=== PATIENT | female | born 1975 | race Hispanic/Latino ===

== ENCOUNTER 2019-01-02 20:23 | Inpatient (IN) | payer MEDICAID, OTHER, SELFPAY ==
--- OUTSIDE RECORDS SUMMARY | 2019-01-02 21:43 | XMS REPORT | Continuity of Care Document ---
:1975 Author Organization Interface Problems Problem Status Onset Classification Date Comments Source Date Reported SHORTNESS OF Active 08/12/20 [facility] BREATH/ AMS [facility] Jaw Active 07/03/20 Problem 08/22/2017 Data migrated [facility] pain<sup>4</sup> 12 from [facility] 03/12/15. Trigeminal Active 07/03/20 Problem 08/22/2017 Data migrated [facility] neuralgia<sup>8< 12 from [facility] /sup> [facility] on Center 03/12/15. Chronic Active 06/11/20 Problem 08/22/2017 Data migrated [facility] maxillary 12 from [facility] sinusitis<sup>1< Centricity on Center /sup> 03/12/15. Cough<sup>3</sup Active 06/11/20 Problem 08/22/2017 Data migrated [place] > 12 from [facility] on Center 03/12/15. Patient Active 06/11/20 Problem 08/22/2017 Data migrated [facility] noncompliance - 12 from [facility] Medical general<sup>6</s Centricity on Center up> 03/12/15. Contraception Active 06/03/20 Problem 08/22/2017 Data migrated [facility] care 12 from [facility] management<sup>2 Centricity on Center </sup> 03/12/15. Morbid Active 06/03/20 Problem 08/22/2017 Data migrated [facility] obesity<sup>5</s 12 from [facility] up> Centric[facility] on Center 03/12/15. 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 CHF (<span Resolved Problem 08/22/2017 [facility] ID="[id number] Medical ">Confirmed</spa Center n>) Hypertension Resolved Problem 08/22/2017 [facility] Trigeminal Resolved Problem 08/22/2017 [facility] neuralgia [facility] CEREBRAL EDEMA Active [facility] Medications Medication Details Route Status Patient Ordering Order Source Instructions Provider Date acetaZOLAMIDE 500 mg=2 tab, Active [place] 250 mg oral PO, BID, # 017 Medical tablet 360 tab, 6 Center Refill(s), Pharmacy: [facility]/pharmacy #[id number] docusate-senna 1 tab, PO, Active [place] 50 mg-8.6 mg Daily, 0 017 Medical oral tablet Refill(s) [place] chlorhexidine 0.018 gm=15 Active [place] topical 0.12% mL, Swab 017 Medical liquid Mouth, Q4H, 0 Center Refill(s) acetaZOLAMIDE 500 mg=2 tab, Inactive [place] 250 mg oral PO, BID, 0 017 Medical tablet Refill(s) [place] acetaminophen 650 mg=2 tab, Active [place] 325 mg oral PO, Q6H, PRN 017 Medical tablet Pain 1-3/Temp Center > 100.4 F, 0 Refill(s) influenza virus 0.5 mL, Inactive [place] vaccine, Route: IM, 017 Medical inactivated Drug Form: Center SUSP, Daily, Start date: 08/17/17 13:00:00 CDT, Duration: 1 doses or times, Stop date: 08/17/17 13:00:00 CDTNotes: (Same as: Fluzone Quadrivalent, Fluarix Quadrivalent) For 3 years of age and older (0.5 mL IM) heparin 5000 5,000 unit, 1 No Longer [place] units/mL mL, Route: Active 017 Medical injectable SUB-Q, Drug [place] solution form: INJ, Q8H, Dosing Weight 136.364, kg, Start date: 08/17/17 0:00:00 CDT, Duration: 30 day, Stop date: 09/15/17 16:00:00 CSTNotes: porcine heparin docusate-senna 1 tab, Route: No Longer [place] 50 mg-8.6 mg PO, Drug Active 017 Medical oral tablet Form: TAB, Center Dosing Weight 136.364, kg, Daily, Start date: 08/16/17 19:45:00 CDT, Duration: 30 day, Stop date: 09/15/17 9:00:00 CSTNotes: (Same as Senokot-S) Equiv. to Brit-Colace. acetaminophen 650 mg, 2 No Longer [facility] tab, Route: Active 017 Medical PO, Drug Center form: TAB, Q6H, Dosing Weight 136.364, kg, PRN Pain 1-3/Temp > 100.4 F, Start date: 08/16/17 16:27:00 CDT, Duration: 30 day, Stop date: 09/15/17 16:26:00 CSTNotes: Do not exceed 4 gm/day. (Same as: Tylenol) pneumococcal 0.5 mL, Inactive [facility] 23-valent Route: IM, [facility] vaccine Drug Form: Center INJ, Daily, Start date: 08/16/17 11:42:00 CDT, Stop date: 08/16/17 23:59:00 CDTNotes: (Same as: Pneumovax 23) Refrigerate Diamox 500 mg, 2 No Longer [facility] tab, Route: Active 017 Medical PO, Drug Center form: TAB, BID, Dosing Weight 136.364, kg, Start date: 08/16/17 11:24:00 CDT, Duration: 30 day, Stop date: 09/15/17 9:00:00 CSTNotes: (Same as: Diamox) Diamox 250 mg, Inactive [facility] Route: PO, 017 Medical Drug form: Center TAB, Daily, Dosing Weight 136.364, kg, Start date: 08/16/17 10:11:00 CDT, Duration: 30 day, Stop date: 09/15/17 9:00:00 [employer] Saline Flush 10 ml, Route: No Longer [facility] 0.9% IVP, Drug Active 017 Medical Form: INJ, Center Dosing Weight 136.364, kg, Q12H, Start date: 08/16/17 9:00:00 CDT, Duration: 30 day, Stop date: 09/14/17 21:00:00 CSTNotes: Same as: BD Posiflush Sterile hydrochlorothia 1 tab, PO, No Longer [facility] zide-lisinopril Daily, 0 Active 017 Medical 12.5 mg-10 mg Refill(s) [place] oral tablet chlorhexidine 15 mL, Route: No Longer [place] topical 0.12% Swab Mouth, Active 017 Medical liquid Q4H, Drug Center form: LIQ, Start date: 08/16/17 8:00:00 CDT, Duration: 30 day, Stop date: 09/15/17 4:00:00 CSTNotes: (Same As: Peridex) Insulin regular 10 unit, 0.1 No Longer [place] mL, Route: Active 017 Medical SUB-Q, Drug Center form: SOLN, Sliding Scale, Dosing Weight 136.364, kg, PRN Blood Glucose Results, Start date: 08/16/17 6:38:00 CDT, Duration: 30 day, Stop date: 09/15/17 5:37:00 CSTNotes: (Same as: Humulin R) Roll in palms of hands gently; Do not shake vigorously. "single patient use only" (Restricted to patients requiring a dose > 60 units) WASTE: F/P - Black; E - Fetch It Trash Bin Stable for 28 days at room temperature Expires in days from _Date Saline Flush 10 ml, Route: No Longer [facility] 0.9% IVP, Drug Active 017 Medical Form: INJ, Center Dosing Weight 136.364, kg, PRN, PRN Line Flush, Start date: 08/16/17 6:38:00 CDT, Duration: 30 day, Stop date: 09/15/17 5:37:00 CSTNotes: Same as: BD Posiflush Sterile valproic acid 2,000 mg, Inactive [place] 100 mg/mL Route: IVPB, 017 Medical intravenous ONCE, Dosing Center solution Weight 136.364, kg, Priority: NOW, Start date: 08/16/17 1:58:00 CDT, Stop date: 08/16/17 1:58:00 CDT Allergies, Adverse Reactions, Alerts Substance Category Reaction Severity Reaction Status Date Comments Source type Reported Immunizations Immunization Date Given Site Status Last Comments Source Updated influenza virus 08/17/2017 Left completed [facility] [place] pneumococcal 08/17/2017 Right completed Gita [facility] 23-valent vaccine deltoid [facility] Results Order Name Results Value Reference Date Interpretation Comments Source Range CHEM PANEL Phosphorus 4.9 mg/dL 2.5 - 4.5 08/18 [facility] CHEM PANEL Magnesium Lvl 2.4 mg/dL 1.8 - 2.4 08/18 [facility] CHEM PANEL BUN 17 mg/dL 7 - 22 08/[address] CHEM PANEL Creatinine 0.69 mg/dL 0.50 - 08/18 [facility] Lvl 1.40 [facility] CHEM PANEL Chloride Lvl 103 meq/L 95 - 109 08/18 [facility] CHEM PANEL Potassium Lvl 4.1 meq/L 3.5 - 5.1 08/18 [facility] CHEM PANEL Sodium Lvl 140 meq/L 135 - 145 08/18 [facility]2016 [facility] CHEM PANEL eGFR 109 08/18 Result Comment: The eGFR is calculated using the CKD-EPI formula. In most young, healthy individuals the eGFR will be >90 mL/ min/1.73m2. The eGFR declines with age. An eGFR of 60-89 may be normal in [facility] mL/min/1.7 some populations, particularly the elderly, for whom the CKD-EPI formula has not been extensively validated. Use of the eGFR is not recommended in the following populations: [address] Individuals with unstable creatinine concentrations, including patients and those with serious co-morbid conditions. Patients with extremes in muscle mass or diet. The data above are obtained from the National Kidney Disease Education Program (NKDEP) which additionally recommends that when the eGFR is used in patients with extremes of body mass index for purposes of drug dosing, the eGFR should be multiplied by the estimated BMI. CHEM PANEL CO2 30 meq/L 24 - 32 08/18 [facility] CHEM PANEL Calcium Lvl 9.1 mg/dL 8.5 - 10.5 08/18 [facility] CHEM PANEL Glucose Lvl 100 mg/dL 70 - 99 08/18 2016 [facility] CHEM PANEL AGAP 11.1 meq/L 10.0 - 08/18 [facility] 20.0 [facility] HEMATOLOGY Segs 76.7 % 45.0 - 08/18 [facility] 75.0 [facility] HEMATOLOGY Monocytes 5.4 % 2.0 - 12.0 08/18 [facility] HEMATOLOGY Lymphocytes 16.7 % 20.0 - 08/18 [place] 40.0 [facility] HEMATOLOGY Basophils 0.6 % 0.0 - 1.0 08/18 [facility] HEMATOLOGY Eosinophils 0.6 % 0.0 - 4.0 08/18 [facility] HEMATOLOGY Segs-Bands # 5.9 K/CMM 1.5 - 8.1 08/18 [facility] HEMATOLOGY Monocytes # 0.4 K/CMM 0.0 - 0.8 08/18 [facility] HEMATOLOGY Lymphocytes # 1.3 K/CMM 1.0 - 5.5 08/18 [facility] HEMATOLOGY RBC 5.88 M/CMM 4.20 - 08/18 [facility] 5.40 [facility] HEMATOLOGY WBC 7.8 K/CMM 3.7 - 10.4 08/18 [facility] HEMATOLOGY Hgb 16.4 g/dL 12.0 - 08/18 [facility] 16.0 [facility] HEMATOLOGY MCHC 31.3 g/dL 32.0 - 08/18 [facility] 36.0 [facility] HEMATOLOGY MCH 28.0 pg 27.0 - 08/18 [facility] 31.0 [facility] HEMATOLOGY MCV 89.3 fL 80.0 - 08/18 [facility] 98.0 [facility] HEMATOLOGY Hct 52.6 % 36.0 - 08/18 48.0 [facility] HEMATOLOGY Platelet 210 K/CMM 133 - 450 08/18 [facility] HEMATOLOGY RDW 17.7 % 11.5 - 08/18 14.5 [facility] HEMATOLOGY MPV 8.9 fL 7.4 - 10.4 08/18 [facility] BACTERIAL - MRSA by PCR Negative 08/17 [facility] (08/17/17 1:42 PM) [place] CHEM PANEL eGFR 114 08/17 Result Comment: The eGFR is calculated using the CKD-EPI formula. In most young, healthy individuals the eGFR will be >90 mL/ min/1.73m2. The eGFR declines with age. An eGFR of 60-89 may be normal in [facility] mL/min/1. some populations, particularly the elderly, for whom the CKD-EPI formula has not been extensively validated. Use of the eGFR is not recommended in the following populations: [address] Individuals with unstable creatinine concentrations, including patients and those with serious co-morbid conditions. Patients with extremes in muscle mass or diet. The data above are obtained from the National Kidney Disease Education Program (NKDEP) which additionally recommends that when the eGFR is used in patients with extremes of body mass index for purposes of drug dosing, the eGFR should be multiplied by the estimated BMI. CHEM PANEL Chloride Lvl 102 meq/L 95 - 109 08/[address] [place] [address] CHEM PANEL CO2 32 meq/L 24 - 32 08/[address] CHEM PANEL Calcium Lvl 9.1 mg/dL 8.5 - 10.5 08/[address] CHEM PANEL Glucose Lvl 104 mg/dL 70 - 99 08/[address] CHEM PANEL Sodium Lvl 139 meq/L 135 - 145 08/[address] CHEM PANEL Potassium Lvl 4.1 meq/L 3.5 - 5.1 08/[address] [place] [address] CHEM PANEL BUN 17 mg/dL 7 - 22 08/[address] CHEM PANEL Creatinine 0.60 mg/dL 0.50 - 08/17 [facility] Lvl 1.40 [facility] CHEM PANEL AGAP 9.1 meq/L 10.0 - 08/17 20.0 [facility] CHEM PANEL Magnesium Lvl 2.4 mg/dL 1.8 - 2.4 08/[address] CHEM PANEL Phosphorus 3.3 mg/dL 2.5 - 4.5 08/[address] [place] [address] HEMATOLOGY MCV 90.9 fL 80.0 - 08/17 98.0 [facility] HEMATOLOGY MCH 28.0 pg 27.0 - 08/17 31.0 [facility] HEMATOLOGY MCHC 30.8 g/dL 32.0 - 08/17 36.0 [facility] HEMATOLOGY RDW 18.0 % 11.5 - 08/17 14.5 [facility] HEMATOLOGY Platelet 205 K/CMM 133 - 450 08/[address] HEMATOLOGY MPV 9.1 fL 7.4 - 10.4 08/17 [facility] HEMATOLOGY WBC 8.2 K/CMM 3.7 - 10.4 08/17 [facility] HEMATOLOGY RBC 5.72 M/CMM 4.20 - 08/17 [place] 5.40 /2016 [facility] HEMATOLOGY Hgb 16.0 g/dL 12.0 - 08/17 [facility] 16.0 [facility] HEMATOLOGY Hct 52.0 % 36.0 - 08/17 48.0 /2016 [facility] HEMATOLOGY Segs-Bands # 6.2 K/CMM 1.5 - 8.1 08/17 [facility]2016 [facility] HEMATOLOGY Monocytes # 0.5 K/CMM 0.0 - 0.8 08/[address] [place] [address] HEMATOLOGY Lymphocytes # 1.4 K/CMM 1.0 - 5.5 08/17 2016 [facility] HEMATOLOGY Segs 76.1 % 45.0 - 08/17 [facility] 75.0 [facility] HEMATOLOGY Basophils 0.4 % 0.0 - 1.0 08/[address] HEMATOLOGY Lymphocytes 16.9 % 20.0 - 08/17 [facility] 40.0 [facility] HEMATOLOGY Eosinophils 0.5 % 0.0 - 4.0 08/17 [facility] HEMATOLOGY Monocytes 6.1 % 2.0 - 12.0 08/17 [facility] [address] [place] [address] BACTERIAL - Strep Negative Negative 08/16 [facility] SEROLOGY pneumoniae [facility] (08/16/17 5:00 PM) [place] BACTERIAL - Source Strep Cerebral 08/16 [facility] SEROLOGY Spinal [facility] BODY FLUIDS Protein CSF 36 mg/dL 15 - 45 08/[address] BODY FLUIDS Clarity CSF Clear Clear 08/16 [facility] (08/16/17 5:00 PM) [place] BODY FLUIDS Supernat CSF Colorless Colorless 08/16 [facility] (08/16/17 5:00 PM) [place] BODY FLUIDS WBC CSF 2 /mm3 0 - 53 08/16 [facility] BODY FLUIDS RBC CSF 1 /mm3 0 - 03 08/16 [facility]2016 [facility] BODY FLUIDS Color CSF Colorless Colorless 08/16 [facility] (08/16/17 5:00 PM) [place] BODY FLUIDS Tube Num CSF 4 08/[address] BODY FLUIDS Glucose CSF 77 mg/dL 45 - 80 08/16 [facility]2016 [facility] BODY FLUIDS RBC CSF 1 /mm3 0 - 03 08/16 [facility] BODY FLUIDS WBC CSF 3 /mm3 0 - 53 08/16 [facility] BODY FLUIDS Supernat CSF Colorless Colorless 08/16 [facility] (08/16/17 5:00 PM) [place] BODY FLUIDS Clarity CSF Clear Clear 08/16 [facility] (08/16/17 5:00 PM) [place] BODY FLUIDS Color CSF Colorless Colorless 08/16 [facility] (08/16/17 5:00 PM) [place] BODY FLUIDS Tube Num CSF 1 08/16 [facility] FUNGAL - Crypto Ag CSF Negative Negative 08/16 [facility] (08/16/17 5:00 PM) [place] Spine Spine lumbar EXAM: Lumbar Puncture, fluoroscopic guidance. 08/16 - [facility] lumbar puncture w - Medical puncture w fluoro DX [place] fluoro DX DATE: 08/16/2017 at 1539 hours Read by: Piyush Matos MD Dictated Date/time: 08/19/17 09:25 Electronically Signed by: Piyush Matos MD 08/19/17 10:50 FINAL REPORT INDICATION: Idiopathic intracranial hypertension. TECHNIQUE Informed consent was obtained from the patient prior to the procedure which was done with the patient prone. Her lower back was prepped and draped in the usual sterile fashion. Following time-out, a 20 gauge 6" long spinal Quincke needle was advanced into the thecal sac at the L2-L3 interspace under fluoroscopic guidance. FINDINGS: Pressure measurements were done with the patient in the left lateral decubitus position. The opening pressure was 29 cm H2O. A total volume of 19 mL of clear spinal fluid was collected. The closing pressure was 20 cm decubitus. FLUOROSCOPY TIME: 1.04 minutes with a skin dose of 104.72 mGycm2. IMPRESSION: 1. Fluoroscopically guided LP. 2. Slightly elevated opening pressure, normal closing pressure. Brain w/wo Brain w/wo EXAM: MRI BRAIN WITH AND WITHOUT CONTRAST 08/16 - [facility] contrast contrast MRI /2016 - [facility] MRI EXAM: MRV BRAIN WITH AND WITHOUT CONTRAST This report was dictated by a Client Services Account Manager/Fellow. I have personally reviewed the images as Center well as the Resident's interpretation and agree with the findings. Read by: China Palmer MD Resident: China Palmer MD Dictated Date/time: 08/16/17 08:25 DATE: 08/16/2017 5:56 AM CDT Electronically Signed by: Luanne Morel 08/16/17 14:48 FINAL REPORT INDICATION: - diffuse cerebral edema ADDITIONAL INFORMATION: None COMPARISON: MRI brain 09/02/2012, CT brain 08/15/2017. TECHNIQUE: Multiplanar, multisequence MRI of the brain with and without intravenous contrast. MRV images of the brain were obtained utilizing a time-of -flight technique. Maximal intensity projection ( MIP) computer-reformatted images are submitted for interpretation in multiple obliquities along with the source images. IV contrast: 20 mL Dotarem. FINDINGS: MRI BRAIN: There is flattening of the bilateral optic discs. Diffusion-weighted images fail to demonstrate any recent ischemic change. There is no mass lesion or signal change. The ventricles and extra-axial spaces are normal. There is no acute or chronic hemorrhagic change. The intracranial arterial and venous structures demonstrate n ormal flow voids. No parenchymal or leptomeningeal enhancement. Mild mucosal thickening in the left maxillary sinus. The mastoid air cells are clear. MRV BRAIN: Narrowing of the bilateral distal transverse sinuses with small filling defects likely representing arachnoid granulations. Otherwise, there is appropriate flow signal is present in the deep cerebral veins and in the major dural venous sinuses. IMPRESSION: 1. Nonspecific flattening of the bilateral optic discs. 2. Bilateral narrowing of the transverse sinuses with small filling defect likely represents archnoid granulations. Brain w Brain w EXAM: MRI BRAIN WITH AND WITHOUT CONTRAST 08/16 - [facility] contrast contrast MRV /2016 - Medical MRV EXAM: MRV BRAIN WITH AND WITHOUT CONTRAST This report was dictated by a Client Services Account Manager/Fellow. I have personally reviewed the images as Center well as the Resident's interpretation and agree with the findings. Read by: China Palmer MD Resident: China Palmer MD Dictated Date/time: 08/16/17 08:25 DATE: 08/16/2017 5:56 AM CDT Electronically Signed by: Luanne Morel 08/16/17 14:48 FINAL REPORT INDICATION: - diffuse cerebral edema ADDITIONAL INFORMATION: None COMPARISON: MRI brain 09/02/2012, CT brain 08/15/2017. TECHNIQUE: Multiplanar, multisequence MRI of the brain with and without intravenous contrast. MRV images of the brain were obtained utilizing a time-of -flight technique. Maximal intensity projection ( MIP) computer-reformatted images are submitted for interpretation in multiple obliquities along with the source images. IV contrast: 20 mL Dotarem. FINDINGS: MRI BRAIN: There is flattening of the bilateral optic discs. Diffusion-weighted images fail to demonstrate any recent ischemic change. There is no mass lesion or signal change. The ventricles and extra-axial spaces are normal. There is no acute or chronic hemorrhagic change. The intracranial arterial and venous structures demonstrate n ormal flow voids. No parenchymal or leptomeningeal enhancement. Mild mucosal thickening in the left maxillary sinus. The mastoid air cells are clear. MRV BRAIN: Narrowing of the bilateral distal transverse sinuses with small filling defects likely representing arachnoid granulations. Otherwise, there is appropriate flow signal is present in the deep cerebral veins and in the major dural venous sinuses. IMPRESSION: 1. Nonspecific flattening of the bilateral optic discs. 2. Bilateral narrowing of the transverse sinuses with small filling defect likely represents archnoid granulations. URINE AND UA Nitrite Negative Negative 08/16 [facility] (08/15/17 10:31 PM) [place] URINE AND UA Leuk Est Negative Negative 08/16 [facility]2016 [facility] (08/15/17 10:31 PM) [place] URINE AND UA 1.0 EU/dL 0.1 - 1.0 08/16 [facility] Urobilinogen /2016 [facility] URINE AND UA Bili Negative Negative 08/16 [facility] Medical *NA* [place] (08/15/17 10:31 PM) URINE AND UA Blood Large Negative 08/16 [facility] Medical *ABN* [place] (08/15/17 10:31 PM) URINE AND UA Glucose Negative Negative 08/16 [facility]2016 [facility] (08/15/17 10:31 PM) [place] URINE AND UA Ketones Negative Negative 08/16 [facility] Medical *NA* [place] (08/15/17 10:31 PM) URINE AND UA Spec Grav 1.010 <=1.030 08/[address] URINE AND UA pH 8.5 5.0 - 8.0 08/[address] URINE AND UA Turbidity Cloudy Clear 08/16 [facility] *ABN* Center (08/15/17 10:31 PM) URINE AND UA Protein Trace Negative 08/16 [facility] *ABN* [place] (08/15/17 10:31 PM) URINE AND UA Color Yellow Yellow 08/16 [facility] *NA* [place] (08/15/17 10:31 PM) URINE AND UA WBC 0-2 /HPF None Seen 08/16 [facility] STOOL /HPF [facility] URINE AND UA RBC >100 /HPF 0 - 2 08/16 [facility] URINE AND UA Bacteria None Seen None Seen 08/16 [facility] (08/15/17 10:31 PM) [place] URINE AND UA Sq Epi Rare /LPF Few /LPF 08/16 [facility] URINE CHEM U Preg Negative Negative 08/16 [facility] (08/15/17 10:31 PM) [place] CARDIAC BNP 38 pg/mL <=100 08/16 [facility] ENZYMES pg/mL [facility] CARDIAC Troponin-I 0.35 ng/mL 0.00 - 08/16 [facility] ENZYMES 0.40 [facility] HEMATOLOGY Sed Rate 9 mm/h 0 - 20 08/16 [facility] IMMUNOLOGY C-REACTIVE 11.5 mg/L <=2.9 mg/L 08/16 [facility] PROTEIN [facility] IMMUNOLOGY CDC HIV 4th Negative Negative 08/16 [facility] *NA* Center (08/15/17 9:40 PM) BLOOD BANK ABO/Rh O NEG 08/16 [facility] RESULTS [facility] BLOOD BANK Antibody Scrn Negative 08/16 [facility] RESULTS [facility] (08/15/17 9:34 PM) Center CHEM PANEL eGFR 122 08/16 Result Comment: The eGFR is calculated using the CKD-EPI formula. In most young, healthy individuals the eGFR will be >90 mL/ min/1.73m2. The eGFR declines with age. An eGFR of 60-89 may be normal in [facility] mL/min/1.7 some populations, particularly the elderly, for whom the CKD-EPI formula has not been extensively validated. Use of the eGFR is not recommended in the following populations: [place] [address] Center Individuals with unstable creatinine concentrations, including patients and those with serious co-morbid conditions. Patients with extremes in muscle mass or diet. The data above are obtained from the National Kidney Disease Education Program (NKDEP) which additionally recommends that when the eGFR is used in patients with extremes of body mass index for purposes of drug dosing, the eGFR should be multiplied by the estimated BMI. CHEM PANEL Sodium Lvl 138 meq/L 135 - 145 08/[address] CHEM PANEL Potassium Lvl 5.3 meq/L 3.5 - 5.1 08/[address] CHEM PANEL Calcium Lvl 8.2 mg/dL 8.5 - 10.5 08/[address] CHEM PANEL Chloride Lvl 103 meq/L 95 - 109 08/[address] CHEM PANEL CO2 36 meq/L 24 - 32 08/[address] CHEM PANEL BUN 11 mg/dL 7 - 22 08/[address] CHEM PANEL Creatinine 0.49 mg/dL 0.50 - 08/16 [facility] Lvl 1.40 [facility] CHEM PANEL Glucose Lvl 135 mg/dL 70 - 99 08/[address] CHEM PANEL AGAP 4.3 meq/L 10.0 - 08/16 [facility] 20.0 [facility] HEMATOLOGY Monocytes # 0.2 K/CMM 0.0 - 0.8 08/[address] HEMATOLOGY Anisocyte 1+ None Seen 08/16 [facility] [address] [place] [address] *ABN* [place] (08/15/17 9:34 PM) HEMATOLOGY Hypochrom 1+ None Seen 08/16 [facility] [address] [place] [address] (08/15/17 9:34 PM) [place] HEMATOLOGY Lymphocytes 5.8 % 20.0 - 08/16 [facility] 40.0 [facility] HEMATOLOGY Monocytes 1.7 % 2.0 - 12.0 08/[address] HEMATOLOGY Lymphocytes # 0.5 K/CMM 1.0 - 5.5 08/[address] HEMATOLOGY Basophils 0.3 % 0.0 - 1.0 08/[address] HEMATOLOGY Segs-Bands # 8.1 K/CMM 1.5 - 8.1 08/[address] HEMATOLOGY Plt Morph Normal 08/[address] (08/15/17 9:34 PM) [place] HEMATOLOGY Segs 92.2 % 45.0 - 08/16 [facility] [place] 75.0 /2016 [facility] HEMATOLOGY PTT 29.9 s 22.9 - 08/16 [place] 35.8 /2016 [facility] HEMATOLOGY PT 13.6 s 12.0 - 08/16 [place] 14.7 /2016 [facility] HEMATOLOGY INR 1.04 0.85 - 08/16 [place] 1.17 /2016 [facility] HEMATOLOGY Hgb 15.4 g/dL 12.0 - 08/16 [place] 16.0 /2016 [facility] HEMATOLOGY Hct 50.3 % 36.0 - 08/16 [place] 48.0 /2016 [facility] HEMATOLOGY MCV 89.4 fL 80.0 - 08/16 [place] 98.0 /2016 [facility] HEMATOLOGY MCH 27.4 pg 27.0 - 08/16 [place] 31.0 /2016 [facility] HEMATOLOGY RDW 17.6 % 11.5 - 08/16 [place] 14.5 [facility] HEMATOLOGY Platelet 215 K/CMM 133 - 450 08/16 [facility] HEMATOLOGY MCHC 30.7 g/dL 32.0 - 08/16 [place] 36.0 [facility] HEMATOLOGY WBC 8.8 K/CMM 3.7 - 10.4 08/16 [facility] HEMATOLOGY RBC 5.63 M/CMM 4.20 - 08/16 [place] 5.40 /2016 [facility] HEMATOLOGY MPV 8.3 fL 7.4 - 10.4 08/16 [facility] Brain wo Brain wo CT HEAD WITHOUT CONTRAST 08/15 - [facility] contrast CT contrast CT /2016 - Medical This report was dictated by a Client Services Account Manager/Fellow. I have personally reviewed the images as Center well as the Resident's interpretation and agree with the findings. DATE: 08/15/2017 at 9:53 PM. Read by: Dre Mora MD Resident: Dre Mora MD Dictated Date/time: 08/15/17 22:48 Electronically Signed by: Maynor Grewal MD 08/16/17 03:30 FINAL REPORT COMPARISON: MRI 09/02/2012. HISTORY: . Altered mental status. Headache, nausea and vomiting.- brain swelling. TECHNIQUE: Contiguous axial images of the brain were obtained without intravenous contrast administration. Sagittal and coronal reformatted images were also provided. DLP: 955.8 mGy-cm. FINDINGS: There are no acute hemorrhages or acute infarcts. The rosa-white interfaces are well defined. As on the prior MRI there is robust brain volume in this relatively young patient of 42 years of age. Cortical sulci over the convexities, and the basal cisterns are not as well-visualized which may be due to difference in contrast resolution between CT and MRI however mild diffuse edema is also a consideration. There is streak artifact at the foramen magnum however 2.3 mm of cerebellar tonsillar was present on the prior MRI and is likely still present. There are no mass lesions or extra axial collections. There are no acute bony abnormalities. The calvarium is intact. IMPRESSION: 1. Effacement of the cortical sulci and basal cisterns concerning for diffuse cerebral edema. Robust brain volume in a relatively young patient partially confounds this issue. Follow-up MRI with comparison to baseline is recommended. Resident preliminary report by Dr. Dre Mora: : With compared to the brain MRI from September 02, 2012, there is obliteration of the cortical and cerebellar sulci, suggesting diffuse cerebral edema. No herniation is seen. [place] SECTION: Neuro Chest 1view Chest 1view EXAM: XR CHEST 1 VIEW 08/15 - [facility] DX /2017 - Medical This report was dictated by a Client Services Account Manager/Fellow. I have personally reviewed the images as Center well as the Resident's interpretation and agree with the findings. DATE: 08/15/2017 9:17 PM CDT Read by: Dre Mora MD Resident: Dre Mora MD Dictated Date/time: 08/15/17 22:05 Electronically Signed by: Isiah Cheng MD 08/16/17 00:59 FINAL REPORT INDICATION: Shortness of breath COMPARISON: None. TECHNIQUE: AP chest [place] SECTION: ER FINDINGS: Lines, tubes and hardware: None. Lungs and pleura: Minimal scarring in the left lung base noted. No pulmonary or pleural based abnormality is identified. Pulmonary vascularity is normal. Heart and mediastinum: The heart size is mildly enlarged although magnified by technique. The mediastinal contours are normal. Bones: No acute bony abnormality is identified. IMPRESSION: No acute cardiopulmonary abnormality. Mild cardiomegaly Vital Signs Vital Sign Value Date Comments Source Temperature Oral (F) 98.2 F 08/19/2017 [facility] Respitory Rate 18 08/19/2017 [facility] Systolic (mm Hg) 110 08/19/2017 [facility] Diastolic (mm Hg) 76 08/19/2017 [facility] Systolic (mm Hg) 142 08/19/2017 [facility] Diastolic (mm Hg) 79 08/19/2017 [facility] Temperature Oral (F) 98.9 F 08/19/2017 [facility] Respitory Rate 18 08/19/2017 [facility] Respitory Rate 16 08/19/2017 [facility] Systolic (mm Hg) 128 08/19/2017 [facility] Diastolic (mm Hg) 78 08/19/2017 [facility] Temperature Oral (F) 98.3 F 08/19/2017 [facility] BMI Calculated 58.71 08/16/2017 [facility] Height 152.4 cm 08/16/2017 [facility] Weight 136.364 08/16/2017 [facility] Height 152.4 cm 08/16/2017 [facility] BMI Calculated 58.71 08/16/2017 [facility] Weight 136.364 08/16/2017 [facility] Heart Rate 95 08/16/2017 [facility] Encounters Location Location Encounter Encounter Reason Attending ADM DC Status Source Details Type Number For Provider Date Date Visit [facility] [id number] [place] 08/16 08/19 [facility] Procedures Procedure Code Date Perfomer Comments Source Spinal puncture, [id number] 08/16/2017 [facility] therapeutic, for Medical drainage of Center cerebrospinal fluid (by needle or catheter) section [id number] [facility] Gallbladder excision [id number] [facility]
--- OUTSIDE RECORDS SUMMARY | 2019-01-02 21:44 | XMS REPORT | Summary of Care ---
:1975 Author Organization [facility] Address [address], [place] [address]- Encounter HQ Lisetter_tyra(FIN) [phone] Date(s): 08/15/17 - 08/19/17 [facility] [address] [place] [address] Professional Services provided by [facility] [place] [address]- Discharge Disposition: Home or Self Care Attending Physician: Anthony Leon MD Admitting Physician: Anthony Leon MD Vital Signs Most recent to oldest 1 2 3 [Reference Range]: Height 152.4 cm 152.4 cm (08/16/17 11:23 AM) (08/15/17 8:08 PM) Temperature Oral [96.4-99.1 98.2 DegF 98.9 DegF 98.3 DegF DegF] (08/19/17 12:33 PM) (08/19/17 7:31 AM) (08/19/17 4:00 AM) Blood Pressure [90-140/60-90 110/76 mmHg 142/79 mmHg 128/78 mmHg mmHg] (08/19/17 12:33 PM) *HI* (08/19/17 4:00 AM) (08/19/17 7:31 AM) Respiratory Rate [14-20 BRMIN] 18 BRMIN 18 BRMIN 16 BRMIN (08/19/17 12:33 PM) (08/19/17 7:31 AM) (08/19/17 4:00 AM) Peripheral Pulse Rate [60-100 95 bpm bpm] (08/15/17 8:08 PM) Weight 136.364 kg 136.364 kg (08/16/17 11:23 AM) (08/15/17 8:08 PM) Body Mass Index 58.71 m2 58.71 m2 (08/16/17 11:23 AM) (08/15/17 8:08 PM) Problem List Condition Effective Dates Status Health Status Informant Chronic maxillary sinusitis1 06/11/12 Active CHF (congestive heart Resolved failure)(Confirmed) Contraception care management2 06/03/12 Active Cough3 06/11/12 Active Hypertension(Confirmed) Resolved Jaw pain4 07/03/12 Active Morbid obesity5 06/03/12 Active Patient noncompliance - general6 06/11/12 Active 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 Allergies, Adverse Reactions, Alerts Substance Reaction Severity Status NKDA1 Active 1Data migrated from [employer] on 12/06/15. Originally documented as NKA. Medications acetaminophen 650 mg, 2 tab, Route: PO, Drug form: TAB, Q6H, Dosing Weight 136.364, kg, PRN Pain 1-3/Temp > 100.4 F, Start date: 08/16/17 16:27:00 CDT, Duration: 30 day, Stop date: 09/15/17 16:26:00 EGG GATHERER Notes: Do not exceed 4 gm/day. (Same as: Tylenol) Start Date: 08/16/17 Stop Date: 08/19/17 Status: Discontinuedacetaminophen 325 mg oral tablet 650 mg=2 tab, PO, Q6H, PRN Pain 1-3/Temp > 100.4 F, 0 Refill(s) Start Date: 08/17/17 Status: OrderedacetaZOLAMIDE 250 mg oral tablet 500 mg=2 tab, PO, BID, # 360 tab, 6 Refill(s), Pharmacy: [facility]/pharmacy #[id number] Start Date: 08/17/17 Stop Date: 05/09/19 Status: OrderedacetaZOLAMIDE 250 mg oral tablet 500 mg=2 tab, PO, BID, 0 Refill(s) Start Date: 08/17/17 Stop Date: 08/17/17 Status: Deletedchlorhexidine topical 0.12% liquid 15 mL, Route: Swab Mouth, Q4H, Drug form: LIQ, Start date: 08/16/17 8:00:00 CDT , Duration: 30 day, Stop date: 09/15/17 4:00:00 EGG GATHERER Notes: (Same As: Peridex) Start Date: 08/16/17 Stop Date: 08/19/17 Status: Discontinuedchlorhexidine topical 0.12% liquid 0.018 gm=15 mL, Swab Mouth, Q4H, 0 Refill(s) Start Date: 08/17/17 Status: OrderedDiamox 500 mg, 2 tab, Route: PO, Drug form: TAB, BID, Dosing Weight 136.364, kg, Start date: 08/16/17 11:24:00 CDT, Duration: 30 day, Stop date: 09/15/17 9:00:00 EGG GATHERER Notes: (Same as: Diamox) Start Date: 08/16/17 Stop Date: 08/19/17 Status: DiscontinuedDiamox 250 mg, Route: PO, Drug form: TAB, Daily, Dosing Weight 136.364, kg, Start date : 08/16/17 10:11:00 CDT, Duration: 30 day, Stop date: 09/15/17 9:00:00 EGG GATHERER Start Date: 08/16/17 Stop Date: 08/16/17 Status: Discontinueddocusate-senna 50 mg-8.6 mg oral tablet 1 tab, PO, Daily, 0 Refill(s) Start Date: 08/17/17 Status: Ordereddocusate-senna 50 mg-8.6 mg oral tablet 1 tab, Route: PO, Drug Form: TAB, Dosing Weight 136.364, kg, Daily, Start date: 08/16/17 19:45:00 CDT, Duration: 30 day, Stop date: 09/15/17 9:00:00 EGG GATHERER Notes: (Same as Senokot-S) Equiv. to Brit-Colace. Start Date: 08/16/17 Stop Date: 08/19/17 Status: Discontinuedheparin 5000 units/mL injectable solution 5,000 unit, 1 mL, Route: SUB-Q, Drug form: INJ, Q8H, Dosing Weight 136.364, kg, Start date: 170:00:00 CDT, Duration: 30 day, Stop date: 09/15/17 16:00:00 EGG GATHERER Notes: porcine heparin Start Date: 08/17/17 Stop Date: 08/19/17 Status: Discontinuedhydrochlorothiazide-lisinopril 12.5 mg-10 mg oral tablet 1 tab, PO, Daily, 0 Refill(s) Start Date: 08/16/17 Stop Date: 08/17/17 Status: Discontinuedinfluenza virus vaccine, inactivated 0.5 mL, Route: IM, Drug Form: SUSP, Daily, Start date: 08/17/17 13:00:00 CDT, Duration: 1 doses or times, Stop date: 08/17/17 13:00:00 CDT Notes: (Same as: Fluzone Quadrivalent, Fluarix Quadrivalent)For 3 years of age and older (0.5 mL IM) Start Date: 08/17/17 Stop Date: 08/17/17 Status: CompletedInsulin regular 10 unit, 0.1 mL, Route: SUB-Q, Drug form: SOLN, Sliding Scale, Dosing Weight 136.364, kg, PRN Blood Glucose Results, Start date: 08/16/17 6:38:00 CDT, Duration: 30 day, Stop date: 09/15/17 5:37:00 EGG GATHERER Notes: (Same as: Humulin R) Roll in palms of hands gently; Do not shake vigorously. "single patientuse only"(Restricted to patients requiring a dose > 60 units)WASTE: F/P - Black; E - Municipal Trash Bin Stable for 28 days at room temperatureExpires in days from Date Start Date: 08/16/17 Stop Date: 08/19/17 Status: DiscontinuedInsulin regular 6 unit, 0.06 mL, Route: SUB-Q, Drug form: SOLN, Sliding Scale, Dosing Weight 136.364, kg, PRN Blood Glucose Results, Start date: 08/16/17 6:38:00 CDT, Duration: 30 day, Stop date: 09/15/17 5:37:00 EGG GATHERER Notes: (Same as: Humulin R) Roll in palms of hands gently; Do not shake vigorously. "single patientuse only"(Restricted to patients requiring a dose > 60 units)WASTE: F/P - Black; E - Municipal Trash Bin Stable for 28 days at room temperatureExpires in days from Date Start Date: 08/16/17 Stop Date: 08/19/17 Status: DiscontinuedInsulin regular 8 unit, 0.08 mL, Route: SUB-Q, Drug form: SOLN, Sliding Scale, Dosing Weight 136.364, kg, PRN Blood Glucose Results, Start date: 08/16/17 6:38:00 CDT, Duration: 30 day, Stop date: 09/15/17 5:37:00 EGG GATHERER Notes: (Same as: Humulin R) Roll in palms of hands gently; Do not shake vigorously. "single patientuse only"(Restricted to patients requiring a dose > 60 units)WASTE: F/P - Black; E - Municipal Trash Bin Stable for 28 days at room temperatureExpires in days from Date Start Date: 08/16/17 Stop Date: 08/19/17 Status: DiscontinuedInsulin regular 4 unit, 0.04 mL, Route: SUB-Q, Drug form: SOLN, Sliding Scale, Dosing Weight 136.364, kg, PRN Blood Glucose Results, Start date: 08/16/17 6:38:00 CDT, Duration: 30 day, Stop date: 09/15/17 5:37:00 EGG GATHERER Notes: (Same as: Humulin R) Roll in palms of hands gently; Do not shake vigorously. "single patientuse only"(Restricted to patients requiring a dose > 60 units)WASTE: F/P - Black; E - Municipal Trash Bin Stable for 28 days at room temperatureExpires in days from Date Start Date: 08/16/17 Stop Date: 08/19/17 Status: DiscontinuedInsulin regular 2 unit, 0.02 mL, Route: SUB-Q, Drug form: SOLN, Sliding Scale, Dosing Weight 136.364, kg, PRN Blood Glucose Results, Start date: 08/16/17 6:38:00 CDT, Duration: 30 day, Stop date: 09/15/17 5:37:00 EGG GATHERER Notes: (Same as: Humulin R) Roll in palms of hands gently; Do not shake vigorously. "single patientuse only"(Restricted to patients requiring a dose > 60 units)WASTE: F/P - Black; E - Municipal Trash Bin Stable for 28 days at room temperatureExpires in days from Date Start Date: 08/16/17 Stop Date: 08/19/17 Status: Discontinuedpneumococcal 23-valent vaccine 0.5 mL, Route: IM, Drug Form: INJ, Daily, Start date: 08/16/17 11:42:00 CDT, Stop date: 08/16/17 23:59:00 CDT Notes: (Same as: Pneumovax 23) Refrigerate Start Date: 08/16/17 Stop Date: 08/16/17 Status: CompletedSaline Flush 0.9% 10 ml, Route: IVP, Drug Form: INJ, Dosing Weight 136.364, kg, PRN, PRN Line Flush, Start date: 08/16/17 6:38:00 CDT, Duration: 30 day, Stop date: 09/15/17 5 :37:00 EGG GATHERER Notes: Same as: BD Posiflush Sterile Start Date: 08/16/17 Stop Date: 08/19/17 Status: DiscontinuedSaline Flush 0.9% 10 ml, Route: IVP, Drug Form: INJ, Dosing Weight 136.364, kg, Q12H, Start date: 08/16/17 9:00:00 CDT, Duration: 30 day, Stop date: 09/14/17 21:00:00 EGG GATHERER Notes: Same as: BD Posiflush Sterile Start Date: 08/16/17 Stop Date: 08/19/17 Status: Discontinuedvalproic acid 100 mg/mL intravenous solution 2,000 mg, Route: IVPB, ONCE, Dosing Weight 136.364, kg, Priority: NOW, Start date: 08/16/17 1:58:00 CDT, Stop date: 08/16/17 1:58:00 CDT Start Date: 08/16/17 Stop Date: 08/16/17 Status: Discontinued Results BLOOD BANK RESULTS Most recent to oldest [Reference Range]: 1 2 3 ABO/Rh O NEG *Unknown* (08/15/17 9:34 PM) Antibody Scrn Negative (08/15/17 9:34 PM) ELECTROLYTES Most recent to oldest 1 2 3 [Reference Range]: Sodium Lvl [135-145 mEq/L] 140 mEq/L 139 mEq/L 138 mEq/L (08/18/17 12:09 AM) (08/17/17 12:40 AM) (08/15/17 9:34 PM) Potassium Lvl [3.5-5.1 4.1 mEq/L 4.1 mEq/L 5.3 mEq/L mEq/L] (08/18/17 12:09 AM) (08/17/17 12:40 AM) *HI* (08/15/17 9:34 PM) Chloride Lvl [95-109 mEq/L] 103 mEq/L 102 mEq/L 103 mEq/L (08/18/17 12:09 AM) (08/17/17 12:40 AM) (08/15/17 9:34 PM) CO2 [24-32 mEq/L] 30 mEq/L 32 mEq/L 36 mEq/L (08/18/17 12:09 AM) (08/17/17 12:40 AM) *HI* (08/15/17 9:34 PM) AGAP [10.0-20.0 mEq/L] 11.1 mEq/L 9.1 mEq/L 4.3 mEq/L (08/18/17 12:09 AM) *LOW* *LOW* (08/17/17 12:40 AM) (08/15/17 9:34 PM) CHEM PANEL Most recent to oldest 1 2 3 [Reference Range]: Creatinine Lvl [0.50-1.40 0.69 mg/dL 0.60 mg/dL 0.49 mg/dL mg/dL] (08/18/17 12:09 AM) (08/17/17 12:40 AM) *LOW* (08/15/17 9:34 PM) eGFR 109 mL/min/1.73m2 1 114 mL/min/1.73m2 2 122 mL/min/1.73m2 3 *NA* *NA* *NA* (08/18/17 12:09 AM) (08/17/17 12:40 AM) (08/15/17 9:34 PM) BUN [7-22 mg/dL] 17 mg/dL 17 mg/dL 11 mg/dL (08/18/17 12:09 AM) (08/17/17 12:40 AM) (08/15/17 9:34 PM) Glucose Lvl [70-99 mg/dL] 100 mg/dL 104 mg/dL 135 mg/dL *HI* *HI* *HI* (08/18/17 12:09 AM) (08/17/17 12:40 AM) (08/15/17 9:34 PM) Calcium Lvl [8.5-10.5 9.1 mg/dL 9.1 mg/dL 8.2 mg/dL mg/dL] (08/18/17 12:09 AM) (08/17/17 12:40 AM) *LOW* (08/15/17 9:34 PM) Phosphorus [2.5-4.5 mg/dL] 4.9 mg/dL 3.3 mg/dL *HI* (08/17/17 12:40 AM) (08/18/17 12:09 AM) Magnesium Lvl [1.8-2.4 2.4 mg/dL 2.4 mg/dL mg/dL] (08/18/17 12:09 AM) (08/17/17 12:40 AM) 1Result Comment: The eGFR is calculated using the CKD-EPI formula. In most young , healthy individualsthe eGFR will be >90 mL/min/1.73m2. The eGFR declines with age. An eGFR of 60-89 may be normal in some populations, particularly the elderly, for whom the CKD-EPI formula has not been extensively validated. Use of the eGFR is not recommended in the following populations: Individuals with unstable creatinine concentrations, including patients and those with serious co-morbid conditions. Patients with extremes in muscle mass or diet. The data above are obtained from the National Kidney Disease Education Program ( NKDEP) which additionally recommends that when the eGFR is used in patients with extremes of body mass index for purposesof drug dosing, the eGFR should be multiplied by the estimated BMI.2Result Comment: The eGFR is calculated using the CKD-EPI formula. In most young, healthy individualsthe eGFR will be >90 mL/ min/1.73m2. The eGFR declines with age. An eGFR of 60-89 may be normal in some populations, particularly the elderly, for whom the CKD-EPI formula has not been extensively validated. Use of the eGFR is not recommended in the following populations: Individuals with unstable creatinine concentrations, including patients and those with serious co-morbid conditions. Patients with extremes in muscle mass or diet. The data above are obtained from the National Kidney Disease Education Program ( NKDEP) which additionally recommends that when the eGFR is used in patients with extremes of body mass index for purposesof drug dosing, the eGFR should be multiplied by the estimated BMI.3Result Comment: The eGFR is calculated using the CKD-EPI formula. In most young, healthy individualsthe eGFR will be >90 mL/ min/1.73m2. The eGFR declines with age. An eGFR of 60-89 may be normal in some populations, particularly the elderly, for whom the CKD-EPI formula has not been extensively validated. Use of the eGFR is not recommended in the following populations: Individuals with unstable creatinine concentrations, including patients and those with serious co-morbid conditions. Patients with extremes in muscle mass or diet. The data above are obtained from the National Kidney Disease Education Program ( NKDEP) which additionally recommends that when the eGFR is used in patients with extremes of body mass index for purposesof drug dosing, the eGFR should be multiplied by the estimated BMI.CARDIAC ENZYMES Most recent to oldest [Reference Range]: 1 2 3 Troponin-I [0.00-0.40 ng/mL] 0.35 ng/mL (08/15/17 10:05 PM) BNP [<=100 pg/mL] 38 pg/mL (08/15/17 10:05 PM) URINE CHEM Most recent to oldest [Reference Range]: 1 2 3 U Preg [Negative] Negative (08/15/17 10:31 PM) URINE AND STOOL Most recent to oldest [Reference Range]: 1 2 3 UA Turbidity [Clear] Cloudy *ABN* (08/15/17 10:31 PM) UA Color [Yellow] Yellow *NA* (08/15/17 10:31 PM) UA pH [5.0-8.0] 8.5 *HI* (08/15/17 10:31 PM) UA Spec Grav [<=1.030] 1.010 (08/15/17 10:31 PM) UA Glucose [Negative] Negative (08/15/17 10:31 PM) UA Blood [Negative] Large *ABN* (08/15/17 10:31 PM) UA Ketones [Negative] Negative *NA* (08/15/17 10:31 PM) UA Protein [Negative] Trace *ABN* (08/15/17 10:31 PM) UA Urobilinogen [0.1-1.0 EU/dL] 1.0 EU/dL (08/15/17 10:31 PM) UA Bili [Negative] Negative *NA* (08/15/17 10:31 PM) UA Leuk Est [Negative] Negative (08/15/17 10:31 PM) UA Nitrite [Negative] Negative (08/15/17 10:31 PM) UA WBC [None Seen /HPF] 0-2 /HPF (08/15/17 10:31 PM) UA RBC [0-2 /HPF] >100 /HPF *ABN* (08/15/17 10:31 PM) UA Bacteria [None Seen] None Seen (08/15/17 10:31 PM) UA Sq Epi [Few /LPF] Rare /LPF (08/15/17 10:31 PM) BODY FLUIDS Most recent to oldest [Reference Range]: 1 2 3 Glucose CSF [45-80 mg/dL] 77 mg/dL (08/16/17 5:00 PM) Protein CSF [15-45 mg/dL] 36 mg/dL (08/16/17 5:00 PM) Tube Num CSF 4 1 *NA* *NA* (08/16/17 5:00 PM) (08/16/17 5:00 PM) Color CSF [Colorless] Colorless Colorless (08/16/17 5:00 PM) (08/16/17 5:00 PM) Clarity CSF [Clear] Clear Clear (08/16/17 5:00 PM) (08/16/17 5:00 PM) Supernat CSF [Colorless] Colorless Colorless (08/16/17 5:00 PM) (08/16/17 5:00 PM) RBC CSF [0-0 /mm3] 1 /mm3 1 /mm3 *HI* *HI* (08/16/17 5:00 PM) (08/16/17 5:00 PM) WBC CSF [0-5 /mm3] 2 /mm3 3 /mm3 (08/16/17 5:00 PM) (08/16/17 5:00 PM) IMMUNOLOGY Most recent to oldest [Reference Range]: 1 2 3 CRP [<=2.9 mg/L] 11.5 mg/L *HI* (08/15/17 10:05 PM) CDC HIV 4th GEN [Negative] Negative *NA* (08/15/17 9:40 PM) HEMATOLOGY Most recent to oldest 1 2 3 [Reference Range]: WBC [3.7-10.4 K/CMM] 7.8 K/CMM 8.2 K/CMM 8.8 K/CMM (08/18/17 12:09 AM) (08/17/17 12:40 AM) (08/15/17 9:34 PM) RBC [4.20-5.40 M/CMM] 5.88 M/CMM 5.72 M/CMM 5.63 M/CMM *HI* *HI* *HI* (08/18/17 12:09 AM) (08/17/17 12:40 AM) (08/15/17 9:34 PM) Hgb [12.0-16.0 g/dL] 16.4 g/dL 16.0 g/dL 15.4 g/dL *HI* (08/17/17 12:40 AM) (08/15/17 9:34 PM) (08/18/17 12:09 AM) Hct [36.0-48.0 %] 52.6 % 52.0 % 50.3 % *HI* *HI* *HI* (08/18/17 12:09 AM) (08/17/17 12:40 AM) (08/15/17 9:34 PM) MCV [80.0-98.0 fL] 89.3 fL 90.9 fL 89.4 fL (08/18/17 12:09 AM) (08/17/17 12:40 AM) (08/15/17 9:34 PM) MCH [27.0-31.0 pg] 28.0 pg 28.0 pg 27.4 pg (08/18/17 12:09 AM) (08/17/17 12:40 AM) (08/15/17 9:34 PM) MCHC [32.0-36.0 g/dL] 31.3 g/dL 30.8 g/dL 30.7 g/dL *LOW* *LOW* *LOW* (08/18/17 12:09 AM) (08/17/17 12:40 AM) (08/15/17 9:34 PM) RDW [11.5-14.5 %] 17.7 % 18.0 % 17.6 % *HI* *HI* *HI* (08/18/17 12:09 AM) (08/17/17 12:40 AM) (08/15/17 9:34 PM) Platelet [133-450 K/CMM] 210 K/CMM 205 K/CMM 215 K/CMM (08/18/17 12:09 AM) (08/17/17 12:40 AM) (08/15/17 9:34 PM) MPV [7.4-10.4 fL] 8.9 fL 9.1 fL 8.3 fL (08/18/17 12:09 AM) (08/17/17 12:40 AM) (08/15/17 9:34 PM) Segs [45.0-75.0 %] 76.7 % 76.1 % 92.2 % *HI* *HI* *HI* (08/18/17 12:09 AM) (08/17/17 12:40 AM) (08/15/17:34 PM) Lymphocytes [20.0-40.0 %] 16.7 % 16.9 % 5.8 % *LOW* *LOW* *LOW* (08/18/17 12:09 AM) (08/17/17 12:40 AM) (08/15/17 9:34 PM) Monocytes [2.0-12.0 %] 5.4 % 6.1 % 1.7 % (08/18/17 12:09 AM) (08/17/17 12:40 AM) *LOW* (08/15/17:34 PM) Eosinophils [0.0-4.0 %] 0.6 % 0.5 % (08/18/17 12:09 AM) (08/17/17 12:40 AM) Basophils [0.0-1.0 %] 0.6 % 0.4 % 0.3 % (08/18/17 12:09 AM) (08/17/17 12:40 AM) (08/15/17 9:34 PM) Segs-Bands # [1.5-8.1 5.9 K/CMM 6.2 K/CMM 8.1 K/CMM K/CMM] (08/18/17 12:09 AM) (08/17/17 12:40 AM) (08/15/17 9:34 PM) Lymphocytes # [1.0-5.5 1.3 K/CMM 1.4 K/CMM 0.5 K/CMM K/CMM] (08/18/17 12:09 AM) (08/17/17 12:40 AM) *LOW* (08/15/17 9:34 PM) Monocytes # [0.0-0.8 K/CMM] 0.4 K/CMM 0.5 K/CMM 0.2 K/CMM (08/18/17 12:09 AM) (08/17/17 12:40 AM) (08/15/17 9:34 PM) Anisocyte [None Seen] 1+ *ABN* (08/15/17 9:34 PM) Hypochrom [None Seen] 1+ (08/15/17 9:34 PM) Plt Morph Normal (08/15/17 9:34 PM) Sed Rate [0-20 mm/hr] 9 mm/hr (08/15/17 10:05 PM) PT [12.0-14.7 seconds] 13.6 seconds (08/15/17 9:34 PM) INR [0.85-1.17] 1.04 (08/15/17 9:34 PM) PTT [22.9-35.8 seconds] 29.9 seconds (08/15/17 9:34 PM) BACTERIAL - SEROLOGY Most recent to oldest [Reference Range]: 1 2 3 MRSA by PCR Negative (08/17/17 1:42 PM) Source Strep Cerebral Spinal Fluid *NA* (08/16/17 5:00 PM) Strep pneumoniae Ag [Negative] Negative (08/16/17 5:00 PM) FUNGAL - SEROLOGY Most recent to oldest [Reference Range]: 1 2 3 Crypto Ag CSF [Negative] Negative (08/16/17 5:00 PM) Immunizations Given and Recorded Vaccine Date Status Refusal Reason influenza virus vaccine, inactivated 08/17/17 Given pneumococcal 23-valent vaccine 08/17/17 Given Procedures Procedure Date Related Diagnosis Body Site Spinal puncture, therapeutic, for drainage of 08/16/17 cerebrospinal fluid (by needle or catheter) section Gallbladder excision Social History Social History Type Response Smoking Status Never smoker; Exposure to Tobacco Smoke None; Cigarette Smoking Last 365 Days No; Reg Smoking Cessation Counseling No Assessment and Plan Extracted from: Title: Neurology Progress Note Author: Miguel A Valdez MD Date: 08/19/17 General Neurology Progress Note Subjective: Patient denies any new complains. No major overnight events. HPI: 42-year-old female with a history of HTN, CHF, trigeminal neuralgia and morbid obesity who presented to the ED with altered mental status. The family reports that 3 days ago, she started experiencing sh ortness of breath and increased swelling of the legs and she was taken to an OSH where she was treated for a CHF exacerbation. Yesterday, she became confused and started having visual hallucinations, na usea, vomiting, and a headache. A head CT was done at that time and showed diffuse cerebral edema with concerns for impending tonsillar herniation. She was given a dose of steroids which improved her me ntal status. Per the family, the outside facility had planned to transfer the patient to another hospital for higher level of care, but the family left AMA and brought her to our ED. In the ED, a repeat head CT showed diffuse cerebral edema. She is back at her baseline currently. Of note, the patient reports that for the past few months she has been experiencing headaches that are worse when laying do wn, 10/10, throbbing in nature, accompanied by blurry vision and not associated with photophobia or phonophobia. Sitting up relieves her headache and improves her blurry vision. She has no prior history of headaches. In addition, she reports that about a month ago she stopped taking all her medications. Hospital Course: Medications (12) Active Scheduled: (5) acetaZOLAMIDE 250 mg TAB 500 mg 2 tab, PO, BID chlorhexidine 0.12% 15 ml oral rinse 15 mL, Swab Mouth, Q4H docusate-senna 50-8.6 mg TAB 1 tab, PO, Daily heparin 5000 unit/1 ml INJ VL 5,000 unit 1 mL, SUB-Q, Q8H sodium chloride 0.9% 10ml sterile flush syr BD 10 ml, IVP, Q12H Continuous: (0) PRN: (7) acetaminophen 325 mg TABLET 650 mg 2 tab, PO, Q6H insulin reg human rec 100 unit/ml INJ 3 ml Vial 2 unit 0.02 mL, SUB-Q, Sliding Scale insulin reg human rec 100 unit/ml INJ 3 ml Vial 4 unit 0.04 mL, SUB-Q, Sliding Scale insulin reg human rec 100 unit/ml INJ 3 ml Vial 6 unit 0.06 mL, SUB-Q, Sliding Scale insulin reg human rec 100 unit/ml INJ 3 ml Vial 8 unit 0.08 mL, SUB-Q, Sliding Scale insulin reg human rec 100 unit/ml INJ 3 ml Vial 10 unit 0.1 mL, SUB-Q, Sliding Scale sodium chloride 0.9% 10ml sterile flush syr BD 10 ml, IVP, PRN Objective: Vitals and Temp: Vitals Tmp(F) Pulse BP RR SpO2 FIO2 08/19 04:00 98.3 82 128/78 16 98 2.0L/m 08/19 00:00 97.2 95 110/71 18 95 2.0L/m 08/18 19:56 99.2 90 123/85 16 95 2.0L/m 08/18 16:00 98.7 96 142/75 18 96 2.0L/m 08/18 13:02 98.9 --- ----- -- --- --- 24 Hr Tmax: 99.2F (37.33c) at 08/18 19:56 Vital Signs are the last 5 in the past 48 hours. Physical Exam: HEAD - Normocephalic and atraumatic LUNGS - Clear to auscultation, no rales or rhonchi CVS - Rate rhythm regular, no murmur, equal pulses bilaterally ABDOMEN - Soft, non tender, with normal bowel sounds. No hepatosplenomegaly NEUROLOGY: Mental status: alert and oriented to person, time, and place. Speech/language: naming, repetition, comprehension and fluency intact, appropriately follows commands. Cranial nerves: pupils briskly reative to light bilaterally, EOMI, visual darling grossly intact, tongue/uvula/palate midline with no apparent atrophy or fibrillations, facial sensation intact, no facial asymmetry. Motor: Tone is normal. Strength 5/5 in all extremities. No adventitious/abnormal movements. Sensation: grossly intact throughout. Coordination: mild dysmetria on [id number]. Reflexes: 2+ and symmetric throughout. Plantar response: flexor. Gait: deferred, fall risk. Labs: Labs (Last four charted values) WBC 7.8 (AUG 18) 8.2 (AUG 17) 8.8 (AUG 15) Hgb H 16.4 (AUG 18) 16.0 (AUG 17) 15.4 (AUG 15) Hct H 52.6 (AUG 18) H 52.0 (AUG 17) H 50.3 (AUG 15) Plt 210 (AUG 18) 205 (AUG 17) 215 (AUG 15) Na 140 (AUG 18) 139 (AUG 17) 138 (AUG 15) K 4.1 (AUG 18) 4.1 (AUG 17) H 5.3 (AUG 15) CO2 30 (AUG 18) 32 (AUG 17) H 36 (AUG 15) Cl 103 (AUG 18) 102 (AUG 17) 103 (AUG 15) Cr 0.69 (AUG 18) 0.60 (AUG 17) L 0.49 (AUG 15) BUN 17 (AUG 18) 17 (AUG 17) 11 (AUG 15) Glucose Random H 100 (AUG 18) H 104 (AUG 17) H 135 (AUG 15) Mg 2.4 (AUG 18) 2.4 (AUG 17) Phos H 4.9 (AUG 18) 3.3 (AUG 17) Ca 9.1 (AUG 18) 9.1 (AUG 17) L 8.2 (AUG 15) PT 13.6 (AUG 15) INR 1.04 (AUG 15) PTT 29.9 (AUG 15) Troponin 0.35 (AUG 15) Diagnostic Work Up : MRI: 1. Nonspecific flattening of the bilateral optic discs. 2. Bilateral narrowing of the transverse sinuses with small filling defect likely represents archnoid granulations. Assessment: 42-year-old female with a history of HTN, CHF, trigeminal neuralgia, morbid obesity, and medication non-compliance who presents after an event of altered mental status in the setting of diffuse cerebral edema that improved after administration of steroids. Her history of headaches is more consistent with subacute idiopathic intracranial hypertension. LP with OP: 29 Plan: - Started Diamox 50 BID. - Echo pending. - Follow up with neurology, ophthalmology and NSGY as an outpatient. -Needs to have 4L O2 as she desaturated to 88 % without O2 and saturated fine when she had 4L she was saturating >90%. Dispo: pending for home oxygen. Miguel A Valdez MD Neurology PGY-2 [id number] [id number] Pager # [phone] Addendum by Grace Velazquez MD on Patient seen and examined by me personally on rounds. I agree with the history and physical exam documented in the resident's note. Case discussed with team and with the patient. I have also reviewed Dr 08/19/2017 23:16 . _Cuortney's note. I agree with the assessment and plan as outlined. E/M billin; pseudotumor, hypoventilation syndrome Extracted from: Title: [facility] Author: Zhao Beard MD Date: 08/16/17 GENERAL NEUROLOGY HISTORY AND PHYSICAL Patient Name: Al Callahan Date of Admission: 08/16/17 General Neurology Attending: Dr. Leon Reason for Admission: Visiual changes concerning for Pseudotumor Cerebri HPI: 42-year-old female with a history of HTN, CHF, trigeminal neuralgia and morbid obesity who presented to the ED with altered mental status. The family reports that 3 days ago, she started experiencing sh ortness of breath and increased swelling of the legs and she was taken to an OSH where she was treated for a CHF exacerbation. Yesterday, she became confused and started having visual hallucinations, na usea, vomiting, and a headache. A head CT was done at that time and showed diffuse cerebral edema with concerns for impending tonsillar herniation. She was given a dose of steroids which improved her me ntal status. Per the family, the outside facility had planned to transfer the patient to another hospital for higher level of care, but the family left AMA and brought her to our ED. In the ED, a repeat head CT showed diffuse cerebral edema. She is back at her baseline currently. Of note, the patient reports that for the past few months she has been experiencing headaches that are worse when laying do wn, 10/10, throbbing in nature, accompanied by blurry vision and not associated with photophobia or phonophobia. Sitting up relieves her headache and improves her blurry vision. She has no prior history of headaches. In addition, she reports that about a month ago she stopped taking all her medications. REVIEW OF SYSTEMS: GEN - negative for fever, chills, weakness, weight changes, decreased appetite. HEENT- negative for trauma, changes in vision/hearing, eye/nasal discharge, sore throat. RESP - negative for cough, wheezing, respiratory distress, shortness of breath. CV - negative for chest pain, palpitations, dizziness. GI/ - negative for abdominal pain, diarrhea, constipation, dysuria. MSK - negative for weakness, joint swelling, tenderness. NEURO - see HPI. SKIN - negative for rash, lumps, itching. HEMATOLOGIC - negative for easy bruising, transfusion reactions, excessive bleeding. Past Medical History: HTN, CHF, trigeminal neuralgia and morbid obesity. Past Surgical History: cholecystectomy and sinus surgery. Home Medications: none. Allergies: NKDA. Family History: non-contributory. No family history of seizures, developmental delay, or neurological disorders. Social History: The patient lives at home and denies alcohol use, tobacco use, or illicit drug use. Medications: Scheduled Meds (2): 08/16/17 8:00 chlorhexidine topical (chlorhexidine topical 0.12% liquid) 15 mL Swab Mouth Q4H 08/16/17 9:00 sodium chloride (Saline Flush 0.9%) 10 ml IVP Q12H Unscheduled Meds: None PRN Meds (6): 08/16/17 6:38 Insulin regular 2 unit SUB-Q Sliding Scale 08/16/17 6:38 Insulin regular 4 unit SUB-Q Sliding Scale 08/16/17 6:38 Insulin regular 6 unit SUB-Q Sliding Scale 08/16/17 6:38 Insulin regular 8 unit SUB-Q Sliding Scale 08/16/17 6:38 Insulin regular 10 unit SUB-Q Sliding Scale 08/16/17 6:38 sodium chloride (Saline Flush 0.9%) 10 ml IVP PRN One Time Meds (1): 08/16/17 1:58 (Discontinued) valproic acid (valproic acid 100 mg/mL intravenous solution) 2,000 mg IVPB ONCE Continuous Infusions: None Allergies: NKDA. PHYSICAL EXAM: Vitals Tmp(F) Tmp(C) Ttype BP MAP Pulse RR SpO2 FIO2 ETCO2 08/16 06:18 97.5 36.39 oral 144/86 --- 104 20 97 4.0L/m --- 08/16 04:08 98.1 36.72 oral 148/76 --- 101 22 98 4.0L/m --- 08/16 02:29 ---- ---- ---- 146/88 --- 93 20 96 4.0L/m --- 08/15 23:00 97.8 36.56 oral 156/88 --- 94 19 96 4.0L/m --- 08/15 20:16 ---- ---- ---- ----- --- --- -- 97 4.0L/m --- GENERAL: awake, alert, no acute distress. HEENT: normocephalic and atraumatic, moist mucous membranes. RESPIRATORY: no increased work of breathing. CARDIOVASCULAR: no murmur, equal pulses bilaterally. ABDOMEN: soft, non-distended. NEUROLOGIC EXAM: Mental status: alert and oriented to person, time, and place. Speech/language: naming, repetition, comprehension and fluency intact, appropriately follows commands. Cranial nerves: pupils briskly reative to light bilaterally, EOMI, visual darling grossly intact, tongue/uvula/palate midline with no apparent atrophy or fibrillations, facial sensation intact, no facial asymmetry. Motor: Tone is normal. Strength 5/5 in all extremities. No adventitious/abnormal movements. Sensation: grossly intact throughout. Coordination: mild dysmetria on [id number]. Reflexes: 2+ and symmetric throughout. Plantar response: flexor. Gait: deferred, fall risk. LABS: 24hr Labs 08/15 2231 U Preg Negative UA Color Yellow UA Turbidity Cloudy UA Spec Grav 1.010 UA pH 8.5 H UA Protein Trace UA Glucose Negative UA Ketones Negative UA Bili Negative UA Blood Large UA Urobilinogen 1.0 UA Nitrite Negative UA Leuk Est Negative UA RBC >100 UA WBC 0-2 UA Bacteria None Seen UA Sq Epi Rare 08/15 2205 Troponin-I 0.35 T4 Free 0.93 TSH 0.412 BNP 38 Sed Rate 9 CRP 11.5 H 08/15 2140 [facility] HIV 4th GEN Negative 08/15 2134 ABO/Rh O NEG Antibody Scrn Negative Glucose Lvl 135 H BUN 11 Creatinine Lvl 0.49 L Sodium Lvl 138 Potassium Lvl 5.3 H Chloride Lvl 103 CO2 36 H AGAP 4.3 L Calcium Lvl 8.2 L eGFR 122 WBC 8.8 RBC 5.63 H Hgb 15.4 Hct 50.3 H MCV 89.4 MCH 27.4 MCHC 30.7 L RDW 17.6 H Platelet 215 MPV 8.3 PT 13.6 INR 1.04 PTT 29.9 Segs 92.2 H Monocytes 1.7 L Lymphocytes 5.8 L Basophils 0.3 Segs-Bands # 8.1 Lymphocytes # 0.5 L Monocytes # 0.2 Plt Morph Normal Anisocyte 1+ Hypochrom 1+ DIAGNOSTIC TESTS: 08/15/17 - CT Head: diffuse cerebal edema. ASSESSMENT: 42-year-old female with a history of HTN, CHF, trigeminal neuralgia, morbid obesity, and medication non-compliance who presents after an event of altered mental status in the setting of diffuse cerebral edema that improved after administration of steroids. Her history of headaches is more consistent with subacute idiopathic intracranial hypertension. More acutely, however, in the setting of uncontroll ed hypertension, diffuse cerebral edema secondary to a hypertensive emergency and CHF exacerbation is more likely. PLAN: - Admit to the General Neurology Inpatient Service. - Follow up Ophthalmology and NSGY recs. - Consult medicine for CHF and HTN in the setting of medication non-compliance. - Brain MRI with and without contrast. - Consider LP when medically feasible, cannot be performed at this time due to cerebral edema. - Continue Dexamethasone and consider Diamox. - Diet: regular. - GI prophylaxis: No. - Mueller present: No. - Code status: Full. - Discharge disposition: pending. Zhao Villalba M.D. Child Neurology Fellow, PGY-4 Pager #: [phone] Neurology Attending The patient was seen and examined by me with the resident and I agree with the History/Exam documented. Anthony Leon MD Extracted from: Title: Ophthalmology Consultation Author: Eboni Alonzo MD Date: 08/16/17 CONSULTATION - OPHTHALMOLOGY PATIENT NAME: Al Callahan MR #: [id number] ROOM: ED Bed 16 REQUESTING TEAM/ATTENDING: Neurology DATE OF CONSULT: 08/16/2017 CONSULTING ATTENDING: Gio Alvarez MD CONSULTING RESIDENT: Eboni Alonzo MD REASON FOR CONSULT: Evaluate for disc edema CHART REVIEWED: YES HISTORY OF PRESENT ILLNESS: The patient is a 42 year old female with PMH HTN, CHF, trigeminal neuralgia and morbid obesity who presented to the ED with altered mental status. The family reports that 3 days ago, she started experiencing shortness of breath and increased swelling of the legs and she was taken to an OSH where she was treated for a CHF exacerbation. Yesterday, she became confused and sta rted having visual hallucinations, nausea, vomiting, and a headache. A head CT was done at that time and showed diffuse cerebral edema with concerns for impending tonsillar herniation. She was given a d ose of steroids which improved her mental status. Per the family, the outside facility had planned to transfer the patient to another hospital for higher level of care, but the family left AMA and broug ht her to our ED. In the ED, a repeat head CT showed diffuse cerebral edema. She is back at her baseline mental status currently, but is very sleepy and does not respond to all of my questions. Of note , the patient reports that for the past few months she has been experiencing headaches that are worse when laying down, 10/10, throbbing in nature, accompanied by blurry vision and not associated with p hotophobia or phonophobia. Sitting up relieves her headache and improves her blurry vision. She has no prior history of headaches. In addition, she reports that about a month ago she stopped taking all her medications. When asked about hearing whoosing noises/taking doxycycline or OCPs or accutane, she is very sleepy and does not respond to my questions. Ophtho consulted for concern for disc edema REVIEW OF SYSTEMS: CONSTITUTIONAL: Denies fever, weight changes. MUSCULOSKELETAL: Denies generalized pain SKIN: Denies rash. EYES: As above. ENT: Denies rhinorrhea, sore throat or hearing loss RESPIRATORY: Denies SOB. CARDIOVASCULAR: Denies chest pain. GASTROINTESTINAL: Denies nausea, vomiting, diarrhea. HEMATOPOETIC/LYMPHATIC: Denies bruising, LAD. GENITOURINARY: Denies change in UOP. NEUROLOGICAL: Denies headache. PSYCHIATRIC: Denies behavioral change. ALLERGY/IMMUNE SYSTEM: Denies allergies. PAST OCULAR HISTORY: per HPI PAST MEDICAL HISTORY: per HPI PAST SURGICAL HISTORY: no past ocular surgeries SOCIAL HISTORY: no etoh/smoking/drugs FAMILY HISTORY: no ocular history ALLERGIES: nkda MEDICATIONS: none EYE MEDICATION: none EXAMINATION NEURO/MS The patient is AAOx3, no focal neurological or motor deficits, the patient was able to participate fully in the exam VISUAL ACUITY (WITHOUT CORRECTION), TESTED ON A NEAR CARD Right: 20/20 Left: 20/20 EXTRAOCULAR MOTILITY Right: Full Left: Full CONFRONTATION VISUAL FIELD Right: Full Left: Full COLOR SATURATION Patient had no decrease in red color intensity between eyes Right: [place] Left: [place] PUPILS Right: 4mm to 3mm, No afferent pupillary defect noted Left: 4mm to 3mm, No afferent pupillary defect noted INTRAOCULAR PRESSURE Symmetric and normal to palpation both eyes. Right eye 21, left eye 15 using the Tonopen. EXTERNAL Right: Within normal limits Left: Within normal limits ANTERIOR SEGMENT EXAM: LIDS/LASHES/LACRIMALS Right: Within normal limits Left: Within normal limits CONJUNCTIVA/SCLERA Right: White and quiet Left: White and quiet CORNEA Right: Clear without epi defect Left: Clear without epi defect ANTERIOR CHAMBER Right: Formed and grossly clear, no hyphema Left: Formed and grossly clear, no hyphema IRIS Right: Round and reactive Left: Round and reactive. LENS Right: Clear Left: Clear DILATED FUNDUS EXAM: (Both eyes dilated with phenylephrine 2.5% and tropicamide 1% @ _) OPTIC NERVE: Right: [place], with blurred borders 360 degrees, grade 2 disc edema Left: [place], with blurred borders 360 degrees, grade 2 disc edema C:D RATIO Right: 0.3 Left: 0.3 POSTERIOR SEGMENT Right: Macula, vessels, periphery within normal limits Left: Macula, vessels, periphery within normal limits IMAGING: CT 08/15/2017 IMPRESSION: 1. Effacement of the cortical sulci [...] suggesting diffuse cerebral edema. No herniation is seen DIAGNOSES/RECOMMENDATION: 1. Disc edema, both eyes - recomend venous imaging to rule out DSVT - recommend lumbar puncture to evaluate opening pressure and for CSF analysis when safe per neurosurgery team We will continue to follow patient in house. Thank you for the consult Thank you for the consult. Eboni Alonzo MD Ophthalmology, PGY-2 Attending Note: I have reviewed this patient s medical record, reviewed the pertinent imaging, and discussed the case with the resident physician. I agree with the assessment and plan as outlined above and based upon the documented history and physical examination. Please call with any questions or concerns. Gio Alvarez MD MSO# [id number] Attending Physician, Ophthalmology
[2019-01-02] MEDS ORDERED: ONDANSETRON 4 MG/2 ML VIAL IV PRN (22:05)
[2019-01-02] MEDS ORDERED: IPRATROPIUM BROM 0.5MG/2.5ML NEB PRN (22:05)
[2019-01-02] MEDS ORDERED: ALBUTEROL 2.5 MG/3 ML NEB SOL NEB PRN (22:05)
[2019-01-02 22:32] LABS: Arterial Blood Carboxyhemoglob 2.4 % (0-1.5); Blood Gas Oxyhemoglobin 95.6 % (94-97); Blood O2 Saturation 98.7 % (92-98.5)
[2019-01-02 22:55] LABS: Absolute Lymphocytes (CBC) 0.3 K/uL (0.7-4.9); Absolute Monocytes 0.1 K/uL (0.1-1.3); Absolute Neutrophil 9.4 K/uL (1.8-8.0); Basophils % 0.5 % (0-1.3); Hematocrit 54.1 % (36.0-45.0); Lymphocytes % 3.5 % (15.3-44.8); MPV 9.5 fL (7.6-11.3); Monocytes % 0.7 % (3.3-12.3); RBC Red Blood Cell Count 6.04 M/uL (3.86-4.86)
[2019-01-02] MEDS ORDERED: NA CHLORIDE 0.9% 1,000 ML IV SCH (23:00)
[2019-01-02 23:09] LABS: ALT/SGPT 17 U/L (12-78); AST/SGOT 20 U/L (15-37); Albumin 3.3 g/dL (3.4-5.0); Alkaline Phosphatase 108 U/L (45-117); BUN Blood Urea Nitrogen 6 mg/dL (7-18); Bicarbonate 34 mmol/L (21-32); Glucose Level 198 mg/dL (74-106); Potassium 5.2 mmol/L (3.5-5.1); Protein, Total 7.6 g/dL (6.4-8.2); Sodium Level 140 mmol/L (136-145)
[2019-01-02 23:53] LABS: Blood Morphology Comment NOT SEEN (NOT SEEN); Platelet Estimate ADEQ
[2019-01-03] MEDS ORDERED: AMPICILLIN/SULBACT 1.5GM VIAL ONE ×2 (00:09→06:41)
[2019-01-03] MEDS ORDERED: NA CHLORIDE 0.9% 100 ML ONE ×2 (00:19→06:46)
--- NOTE | 2019-01-03 05:28 | P.HP ---
Certification for Inpatient Patient admitted to: Inpatient With expected LOS: >2 Midnights Practitioner: I am a practitioner with admitting privileges, knowledge of patient current condition, hospital course, and medical plan of care. Services: Services provided to patient in accordance with Admission requirements found in Title 42 Section 412.3 of the Code of Federal Regulations Patient History Date of Service: 01/02/19 Reason for admission: acute respiratory failure History of Present Illness: Ms Callahan is a 43 years old woman with history of morbid obesity, COPD, and HTN , who start feeling sore throat and SOB about 2 days ago. She denied fever or chills, no increasing cough either. [facility] [place] [place], she was diagnosed with strep infection, her O2 sat initially was 40% on RA, improving after been placed on NR mask. ABG was remarkable for PCO2 103. CT soft tissue neck shows enlarged tonsils without abscess formation. Influenza screening was negative. Then she was transfer to this facility for ENT evaluation. At arrival the patient was obtunded, but easy to arouse, and she was able to provide some history. ABG in our facility shows respiratory acidosis, PCO2 111. Afebrile. CXR pending. Allergies iodine Allergy (Verified 01/02/19 22:33) Hives/Rash Home Medications: Lisinopril 10 mg PO DAILY 01/02/19 - Past Medical/Surgical History Has patient received pneumonia vaccine in the past: No Diabetic: No -: Htn -: COPD -: morbid obesity Past Surgical History: Reviewed- Non-Contributory - Family History Family History: Reviewed- Non-Contributory - Family History Father -: Heart disease, Hypertension - Social History Smoking Status: Former smoker Alcohol use: No CD- Drugs: No Caffeine use: No Place of Residence: Home Review of Systems 10-point ROS is otherwise unremarkable Physical Examination - Vital Signs Temperature: 98 F Blood Pressure: 121/80 Pulse: 90 Respirations: 21 Pulse Ox (%): 96 - Physical Exam General: In no apparent distress, Other (obtunded) HEENT: Atraumatic, PERRLA, Mucous membr. moist/pink, EOMI, Sclerae nonicteric Neck: Supple, 2+ carotid pulse no bruit, No LAD, Without JVD or thyroid abnormality Respiratory: Diminished, Other (no stridor) Cardiovascular: Regular rate/rhythm, Normal S1 S2 Gastrointestinal: Normal bowel sounds, No tenderness Musculoskeletal: No tenderness Integumentary: No rashes Neurological: Normal speech, Normal strength at 5/5 x4 extr, Normal affect Lymphatics: No axilla or inguinal lymphadenopathy - Studies Laboratory Data (last 24 hrs) 01/02/19 22:33: Sodium 140, Potassium 5.2 H, BUN 6 L, Creatinine 0.58, Glucose 198 H, Total Bilirubin 1.0, AST 20, ALT 17, Alkaline Phosphatase 108 01/02/19 22:33: WBC 9.9, Hgb 16.1 H, Hct 54.1 H, Plt Count 132 L Assessment and Plan - Problems (Diagnosis) (1) Acute respiratory failure Current Visit: Yes Status: Acute Qualifiers: Respiratory failure complication: hypoxia and hypercapnia Qualified Code(s) : J96.01 - Acute respiratory failure with hypoxia; J96.02 - Acute respiratory failure with hypercapnia (2) Obesity Current Visit: Yes Status: Acute Qualifiers: Obesity type: unspecified obesity type Obesity classification: unspecified obesity classification Serious obesity comorbidity presence: unspecified whether serious comorbidity present Qualified Code(s): E66.9 - Obesity, unspecified (3) COPD (chronic obstructive pulmonary disease) Current Visit: Yes Status: Acute Qualifiers: COPD type: unspecified COPD Qualified Code(s): J44.9 - Chronic obstructive pulmonary disease, unspecified (4) HTN (hypertension) Current Visit: Yes Status: Acute Qualifiers: Hypertension type: essential hypertension Qualified Code(s): I10 - Essential (primary) hypertension - Plan The patient will be placed on BiPAP, order XCR, lab work, repeat ABG to adjust BiPAP or discontinue it. Will order pulmonology evaluation, ECHO, start empiric antibiotic for srtep infection. - Advance Directives Does patient have a Living Will: No Does patient have a Durable POA for Healthcare: No - Code Status/Comfort Care Code Status Assessed: Yes Code Status: Full Code
[2019-01-03 05:53] LABS: Arterial Blood Carboxyhemoglob 2.1 % (0-1.5); Blood Gas Oxyhemoglobin 96.7 % (94-97); Blood O2 Saturation 99.3 % (92-98.5)
[2019-01-03] MEDS: AMPICILLIN/SULBACT 3 GM in NA CHLORIDE 0.9% 100 ML IVPB SCH ×6 (06:00→23:18)
[2019-01-03 07:19] LABS: Urine Appearance CLEAR; Urine Bilirubin NEGATIVE (NEG); Urine Blood NEGATIVE (NEG); Urine Color YELLOW; Urine Glucose NEGATIVE (NEG); Urine Protein 1+ (NEG); Urine Specific Gravity 1.015 (1.005-1.030); Urine Urobilinogen 0.2 mg/dL (0.2-1.0)
[2019-01-03 07:20] LABS: Urine Microscopic Reflex ORDER UMIC
[2019-01-03 07:41] LABS: Urine Bacteria <20 /HPF (<20); Urine RBC NONE SEEN /HPF (NONE SEEN)
[2019-01-03 07:42] LABS: Urine Culture Reflex Order NOT NEEDED
[2019-01-03] MEDS ORDERED: METHYLPREDNISOLONE 125 MG INJ IV SCH ×2 (08:21→12:00)
--- NOTE | 2019-01-03 08:45 | P.PN ---
Subjective Date of Service: 01/03/19 Primary Care Provider: unknown Chief Complaint: acute respiratory failure Subjective: Other (Patient currently on BiPAP. Patient arousable with pain and stimuli.) Physical Examination - Vital Signs Temperature: 98 F Blood Pressure: 127/74 Pulse: 82 Respirations: 18 Pulse Ox (%): 95 - Physical Exam General: Alert, Other (Patient arousable to pain and stimuli. BiPAP in place.) HEENT: Atraumatic, Other (Patient with short neck. Patient morbidly obese. Large girth with to neck region) Respiratory: Diminished (Bilateral) Cardiovascular: Normal pulses, Regular rate/rhythm Gastrointestinal: Normal bowel sounds, Soft and benign, Non-distended, Other ( Morbid obesity) Neurological: Normal speech, Normal strength at 5/5 x4 extr, Normal tone - Studies Laboratory Data (last 24 hrs) 01/02/19 22:33: Sodium 140, Potassium 5.2 H, BUN 6 L, Creatinine 0.58, Glucose 198 H, Total Bilirubin 1.0, AST 20, ALT 17, Alkaline Phosphatase 108 01/02/19 22:33: WBC 9.9, Hgb 16.1 H, Hct 54.1 H, Plt Count 132 L Medications List Reviewed: Yes Assessment & Plan Discharge Plan: Home Plan to discharge in: Greater than 2 days Physician Review Additional Text: Impression: Acute on chronic respiratory failure with respiratory acidosis complicated with strep tonsillitis and hypoventilation obesity syndrome Morbid obesity Hyperkalemia Plan: Acute on chronic respiratory failure with respiratory acidosis complicated with strep tonsillitis and hypoventilation obesity syndrome: ABG reviewed with pulmonology. Will continue to adjust BiPAP. If her condition continues to decline patient will need to be intubated. Case discussed with ENT and anesthesia. Patient could be difficult to intubate. Will continue to reassess. Await further recommendations from pulmonology. If intubation required, anesthesia would be recommended with ENT backup. Continue IV antibiotic therapy. Recheck chest x-ray. Will obtain echocardiogram. Morbid obesity, BMI 56.9: Will address lifestyle modification education. Hyperkalemia: Recheck lab. Time Spent Managing Pts Care (In Minutes): 55
[2019-01-03] MEDS ORDERED: DEXAMETHASONE 4 MG/ML VIAL ONE (09:03)
--- NOTE | 2019-01-03 09:32 | RAD REPORT ---
EXAM DESCRIPTION: Jayce Single View01/02/2019 10:49 pm CLINICAL HISTORY: Shortness of breath COMPARISON: none FINDINGS: Mild bilateral pulmonary opacities The heart is mildly to moderately enlarged IMPRESSION: Bilateral pulmonary opacities may represent pulmonary edema
[2019-01-03 10:10] LABS: BUN Blood Urea Nitrogen 9 mg/dL (7-18); Bicarbonate 39 mmol/L (21-32); Glucose Level 139 mg/dL (74-106); Magnesium 2.3 mg/dL (1.8-2.4); Potassium 5.3 mmol/L (3.5-5.1); Sodium Level 144 mmol/L (136-145)
--- NOTE | 2019-01-03 10:12 | RAD REPORT ---
EXAM DESCRIPTION: Jayce Single View01/03/2019 7:15 am CLINICAL HISTORY: sob COMPARISON: January 02. FINDINGS: Mild bilateral pulmonary opacities have partially resolved. Heart remains enlarged IMPRESSION: Partial resolution in mild bilateral pulmonary opacities
[2019-01-03] MEDS: ENOXAPARIN 40 MG/0.4 ML SQ SCH (10:35)
[2019-01-03] MEDS: NACHLORIDE 0.45% 1,000 ML IV SCH ×2 (10:35→20:22)
[2019-01-03] MEDS: METHYLPREDNISOLONE 125 MG INJ IV SCH ×2 (10:37→17:40)
[2019-01-03] MEDS: ACETAZOLAMIDE 500 MG IV IV SCH ×2 (10:37→20:22)
[2019-01-03] MEDS ORDERED: WATER FOR INJ,STERILE 10 ML ONE (10:42)
[2019-01-03 11:18] LABS: Arterial Blood Carboxyhemoglob 2.1 % (0-1.5); Blood Gas Oxyhemoglobin 75.2 % (94-97); Blood O2 Saturation 77.1 % (92-98.5)
[2019-01-03 11:23] LABS: Blood Gas Oxyhemoglobin 93.7 % (94-97); Blood O2 Saturation 96.2 % (92-98.5)
[2019-01-03 17:04] LABS: Arterial Blood Carboxyhemoglob 2.5 % (0-1.5); Blood Gas Oxyhemoglobin 95.2 % (94-97)
[2019-01-03] MEDS ORDERED: HYDRALAZINE HCL 20 MG/ML VIAL IV PRN (17:20)
[2019-01-03] MEDS ORDERED: WATER FOR INJ,STERILE 10 ML IV PRN (17:29)
[2019-01-04] MEDS: METHYLPREDNISOLONE 125 MG INJ IV SCH ×2 (00:58→08:20)
[2019-01-04] MEDS: AMPICILLIN/SULBACT 3 GM in NA CHLORIDE 0.9% 100 ML IVPB SCH (05:18)
[2019-01-04 05:40] LABS: BUN Blood Urea Nitrogen 15 mg/dL (7-18); Bicarbonate 29 mmol/L (21-32); Glucose Level 141 mg/dL (74-106); Magnesium 2.2 mg/dL (1.8-2.4); Potassium 4.4 mmol/L (3.5-5.1); Sodium Level 140 mmol/L (136-145)
[2019-01-04 06:15] LABS: Absolute Lymphocytes (CBC) 0.5 K/uL (0.7-4.9); Absolute Monocytes 0.2 K/uL (0.1-1.3); Absolute Neutrophil 8.6 K/uL (1.8-8.0); Basophils % 0.1 % (0-1.3); Hematocrit 49.8 % (36.0-45.0); Lymphocytes % 4.9 % (15.3-44.8); MPV 9.1 fL (7.6-11.3); Monocytes % 2.1 % (3.3-12.3); RBC Red Blood Cell Count 5.71 M/uL (3.86-4.86)
[2019-01-04 06:54] LABS: Arterial Blood Carboxyhemoglob 2.3 % (0-1.5); Blood Gas Oxyhemoglobin 94.2 % (94-97); Blood O2 Saturation 96.8 % (92-98.5)
[2019-01-04 08:02] LABS: Anisocytosis 1+; Blood Morphology Comment NOTED (NOT SEEN); Hypochromasia 1+; Platelet Estimate ADEQ
[2019-01-04] MEDS: ACETAZOLAMIDE 500 MG IV IV SCH (08:20)
[2019-01-04] MEDS: ENOXAPARIN 40 MG/0.4 ML SQ SCH (08:20)
--- NOTE | 2019-01-04 09:12 | P.PN ---
Subjective Date of Service: 01/04/19 Primary Care Provider: unknown Chief Complaint: acute respiratory failure Subjective: Improving (on BIPAP) Physical Examination - Vital Signs Temperature: 97.5 F Blood Pressure: 156/103 Pulse: 85 Respirations: 18 Pulse Ox (%): 92 - Physical Exam General: Alert, In no apparent distress, Oriented x3, Cooperative HEENT: Atraumatic Neck: Supple Respiratory: Clear to auscultation bilaterally, Normal air movement Cardiovascular: Normal pulses, Regular rate/rhythm Gastrointestinal: Normal bowel sounds, Soft and benign, Non-distended, No masses , No rebound, No guarding Musculoskeletal: No erythema, No tenderness, No warmth Integumentary: No tenderness/swelling, No erythema, No warmth, No cyanosis Neurological: Normal speech, Normal strength at 5/5 x4 extr, Normal tone, Normal affect - Studies Laboratory Data (last 24 hrs) 01/04/19 05:01: WBC 9.2, Hgb 15.8 H, Hct 49.8 H, Plt Count 177 D 01/04/19 05:01: Sodium 140, Potassium 4.4, BUN 15, Creatinine 0.57, Glucose 141 H, Magnesium 2.2 01/03/19 09:45: Sodium 144, Potassium 5.3 H, BUN 9, Creatinine 0.54 L, Glucose 139 H, Magnesium 2.3 Medications List Reviewed: Yes Assessment & Plan Discharge Plan: Home Plan to discharge in: 48 Hours Physician Review Additional Text: Impression: Acute on chronic respiratory failure with respiratory acidosis complicated with strep tonsillitis, obstructive sleep apnea, and hypoventilation obesity syndrome along with prior nasal surgery Morbid obesity Hyperkalemia Hypertension Diabetes mellitus type 2 Plan: Acute on chronic respiratory failure with respiratory acidosis complicated with strep tonsillitis, obstructive sleep apnea, and hypoventilation obesity syndrome along with prior nasal surgery: ABG improved. Patient remains on BiPAP. Will continue to wean off. Patient diagnosed with obstructive sleep apnea recently but not using her CPAP machine as per pulmonology. Education on the importance of her compliance with CPAP addressed. Will start patient on clear liquid diet and advance as tolerated. If the patient significantly improves patient may be able to be transferred to the floor. Patient on IV steroids and Diamox. Await further recommendations from pulmonology. Suspect this can be transitioned to oral medication if okay with pulmonology. Will recheck chest x-ray. Will obtain echocardiogram. Will transition from IV antibiotic therapy to oral. I will turn the service over to Dr. Palmer tomorrow. I will go over the plan of care with her. Anticipate discharge in the next 48-72 hr. Morbid obesity, BMI 56.9: Will address lifestyle modification education. Hyperkalemia: This has resolved. Hypertension: Patient previously on lisinopril hydrochlorothiazide. Will start losartan. Will need to monitor potassium level on medication. Will monitor and adjust appropriately. IV medication as needed provided. Diabetes mellitus type 2: This is a new diagnosis. Hemoglobin A1c 6.7. Will place on Accu-Chek and sliding scale. Patient would benefit with metformin at discharge. Time Spent Managing Pts Care (In Minutes): 55
--- NOTE | 2019-01-04 10:08 | RAD REPORT ---
EXAM DESCRIPTION: RAD - Chest Single View - 01/04/2019 8:19 am CLINICAL HISTORY: Follow up acute on chronic respiratory failure Chest pain. COMPARISON: Chest Single View dated 01/03/2019; Chest Single View dated 01/02/2019 FINDINGS: Portable technique limits examination quality. The lungs are grossly clear. The heart is mildly enlarged in size. No displaced fractures. IMPRESSION: No acute intrathoracic process suspected.
[2019-01-04] MEDS: LOSARTAN POTASSIUM 50 MG TABLET PO SCH ×2 (10:09→20:10)
[2019-01-04] MEDS: AMOXICILLIN TRIHYDR 250 MG CAP PO SCH ×3 (10:09→20:09)
--- NOTE | 2019-01-04 10:23 | P.PN ---
Subjective Date of Service: 01/04/19 Primary Care Provider: unknown Chief Complaint: Acute on chronic respiratory failure Subjective: Improving (Patient is doing much better more alert responsive cooperative she never got as a CPAP machine sleep study was done a year ago) Review of Systems General: Weakness Respiratory: Shortness of Breath Physical Examination - Vital Signs Temperature: 97.5 F Blood Pressure: 156/103 Pulse: 85 Respirations: 18 Pulse Ox (%): 92 - Physical Exam General: Alert, Oriented x3, Cooperative Respiratory: Clear to auscultation bilaterally, Diminished - Studies Laboratory Data (last 24 hrs) 01/04/19 05:01: WBC 9.2, Hgb 15.8 H, Hct 49.8 H, Plt Count 177 D 01/04/19 05:01: Sodium 140, Potassium 4.4, BUN 15, Creatinine 0.57, Glucose 141 H, Magnesium 2.2 Medications List Reviewed: Yes Assessment & Plan - Problems (Diagnosis) (1) Acute and chronic respiratory failure ([id number]) Current Visit: Yes Status: Acute Plan: Patient is 43 years of age with a history of sleep apnea/obesity hypoventilation syndrome sleep study done a year ago patient does not have a CPAP machine will try and obtain the sleep study from [facility] [employer] insurance company will allow her to have a BiPAP machine currently she is doing much better thyroid function tests is normal blood pressure is little elevated change to p.o. Diamox at spironolactone Dc steroids stable to be transferred to the floor Physician Review Additional Text: Impression: Acute on chronic respiratory failure with respiratory acidosis complicated with strep tonsillitis, obstructive sleep apnea, and hypoventilation obesity syndrome along with prior nasal surgery Morbid obesity Hyperkalemia Hypertension Diabetes mellitus type 2 Plan: Acute on chronic respiratory failure with respiratory acidosis complicated with strep tonsillitis, obstructive sleep apnea, and hypoventilation obesity syndrome along with prior nasal surgery: ABG improved. Patient remains on BiPAP. Will continue to wean off. Patient diagnosed with obstructive sleep apnea recently but not using her CPAP machine as per pulmonology. Education on the importance of her compliance with CPAP addressed. Will start patient on clear liquid diet and advance as tolerated. If the patient significantly improves patient may be able to be transferred to the floor. Patient on IV steroids and Diamox. Await further recommendations from pulmonology. Suspect this can be transitioned to oral medication if okay with pulmonology. Will recheck chest x-ray. Will obtain echocardiogram. Will transition from IV antibiotic therapy to oral. I will turn the service over to Dr. Palmer tomorrow. I will go over the plan of care with her. Anticipate discharge in the next 48-72 hr. Morbid obesity, BMI 56.9: Will address lifestyle modification education. Hyperkalemia: This has resolved. Hypertension: Patient previously on lisinopril hydrochlorothiazide. Will start losartan. Will need to monitor potassium level on medication. Will monitor and adjust appropriately. IV medication as needed provided. Diabetes mellitus type 2: This is a new diagnosis. Hemoglobin A1c 6.7. Will place on Accu-Chek and sliding scale. Patient would benefit with metformin at discharge.
[2019-01-04] MEDS: SPIRONOLACTONE 25 MG TABLET PO SCH ×2 (11:30→20:10)
[2019-01-04] MEDS ORDERED: acetaZOLAMIDE 250 MG TAB PO SCH (12:00)
[2019-01-05 05:32] LABS: BUN Blood Urea Nitrogen 16 mg/dL (7-18); Bicarbonate 32 mmol/L (21-32); Glucose Level 97 mg/dL (74-106); Magnesium 2.3 mg/dL (1.8-2.4); Sodium Level 141 mmol/L (136-145)
[2019-01-05 06:20] LABS: Absolute Lymphocytes (CBC) 1.5 K/uL (0.7-4.9); Absolute Monocytes 0.6 K/uL (0.1-1.3); Basophils % 0.3 % (0-1.3); Hematocrit 52.4 % (36.0-45.0); Lymphocytes % 18.2 % (15.3-44.8); MPV 9.6 fL (7.6-11.3); Monocytes % 6.9 % (3.3-12.3); RBC Red Blood Cell Count 6.01 M/uL (3.86-4.86)
--- NOTE | 2019-01-05 08:08 | RAD REPORT ---
EXAM DESCRIPTION: RAD - Chest Single View - 01/05/2019 6:29 am CLINICAL HISTORY: Acute on chronic respiratory failure COMPARISON: January 04 TECHNIQUE: AP portable chest image was obtained 0621 hours . FINDINGS: No new lung parenchymal process identified. Findings remain limited due to large body habi tus and portable technique. Heart and vasculature are normal. No measurable pleural effusion and no p neumothorax. No acute bony abnormality seen. No acute aortic findings suspected. IMPRESSION: Stable chest from January 04.
--- NOTE | 2019-01-05 08:44 | P.PN ---
Subjective Date of Service: 01/05/19 Primary Care Provider: unknown Chief Complaint: Acute on chronic respiratory failure Subjective: Improving (Patient is doing much better off BiPAP saturation satisfactory very alert responsive cooperative) Review of Systems General: Weakness Respiratory: Shortness of Breath Physical Examination - Vital Signs Temperature: 98.4 F Blood Pressure: 133/93 Pulse: 68 Respirations: 17 Pulse Ox (%): 95 - Physical Exam General: Alert, Oriented x3 Neck: Supple Respiratory: Clear to auscultation bilaterally, Diminished - Studies Laboratory Data (last 24 hrs) 01/05/19 04:48: WBC 8.0, Hgb 16.1 H, Hct 52.4 H, Plt Count 216 D 01/05/19 04:48: Sodium 141, Potassium 4.0, BUN 16, Creatinine 0.67, Glucose 97, Magnesium 2.3 Medications List Reviewed: Yes Assessment & Plan - Problems (Diagnosis) (1) Acute and chronic respiratory failure ([id number]) Current Visit: Yes Status: Acute Plan: Patient admitted with hypoxic hypercapnic respiratory failure is doing better patient to bring her CPAP machine from home will try and set up the pressure before discharge blood pressure control is satisfactory continue with Diamox and spironolactone Physician Review Additional Text: Impression: Acute on chronic respiratory failure with respiratory acidosis complicated with strep tonsillitis, obstructive sleep apnea, and hypoventilation obesity syndrome along with prior nasal surgery Morbid obesity Hyperkalemia Hypertension Diabetes mellitus type 2 Plan: Acute on chronic respiratory failure with respiratory acidosis complicated with strep tonsillitis, obstructive sleep apnea, and hypoventilation obesity syndrome along with prior nasal surgery: ABG improved. Patient remains on BiPAP. Will continue to wean off. Patient diagnosed with obstructive sleep apnea recently but not using her CPAP machine as per pulmonology. Education on the importance of her compliance with CPAP addressed. Will start patient on clear liquid diet and advance as tolerated. If the patient significantly improves patient may be able to be transferred to the floor. Patient on IV steroids and Diamox. Await further recommendations from pulmonology. Suspect this can be transitioned to oral medication if okay with pulmonology. Will recheck chest x-ray. Will obtain echocardiogram. Will transition from IV antibiotic therapy to oral. I will turn the service over to Dr. Palmer tomorrow. I will go over the plan of care with her. Anticipate discharge in the next 48-72 hr. Morbid obesity, BMI 56.9: Will address lifestyle modification education. Hyperkalemia: This has resolved. Hypertension: Patient previously on lisinopril hydrochlorothiazide. Will start losartan. Will need to monitor potassium level on medication. Will monitor and adjust appropriately. IV medication as needed provided. Diabetes mellitus type 2: This is a new diagnosis. Hemoglobin A1c 6.7. Will place on Accu-Chek and sliding scale. Patient would benefit with metformin at discharge.
[2019-01-05] MEDS: acetaZOLAMIDE 250 MG TAB PO SCH (09:16)
[2019-01-05] MEDS: LOSARTAN POTASSIUM 50 MG TABLET PO SCH ×2 (09:16→20:43)
[2019-01-05] MEDS: SPIRONOLACTONE 25 MG TABLET PO SCH ×2 (09:16→20:42)
[2019-01-05] MEDS: ENOXAPARIN 40 MG/0.4 ML SQ SCH (09:17)
[2019-01-05] MEDS: AMOXICILLIN TRIHYDR 250 MG CAP PO SCH ×3 (09:17→20:42)
--- NOTE | 2019-01-05 10:45 | ECHO ---
HEIGHT: 5 ft 0 in WEIGHT: 277 lb 6.4 oz DATE OF STUDY: 01/05/[address]: Maddi Solano MD 2-DIMENSIONAL: YES M.MODE: YES DOPPLER: YES COLOR FLOW: YES TDS: NO PORTABLE: YES DEFINITY: NO BUBBLE STUDY: NO DIAGNOSIS: EVALUATE HEART FUNCTION CARDIAC HISTORY: CATHERIZATION: NO SURGERY: NO PROSTHETIC VALVE: NO PACEMAKER: NO MEASUREMENTS (cm) DIASTOLIC (NORMALS) SYSTOLIC (NORMALS) IVSd 1.5 (0.6-1.2) LA Diam 3.9 (1.9-4.0) LVEF 54% LVIDd 4.4 (3.5-5.7) LVIDs 3.2 (2.0-3.5) %FS 28% LVPWd 1.7 (0.6-1.2) Ao Diam 2.6 (2.0-3.7) 2 DIMENSIONAL ASSESSMENT: RIGHT ATRIUM: NORMAL LEFT ATRIUM: DILATED RIGHT VENTRICLE: NORMAL LEFT VENTRICLE: LEFT VENTRICULAR HYPERTROPHY TRICUSPID VALVE: NORMAL MITRAL VALVE: NORMAL PULMONIC VALVE: NORMAL AORTIC VALVE: NORMAL PERICARDIAL EFFUSION: NONE AORTIC ROOT: NORMAL LEFT VENTRICULAR WALL MOTION: NORMAL DOPPLER/COLOR FLOW: MILD TRICUSPID REGURGITATION. ESTIMATED RIGHT VENTRICULAR SYSTOLIC PRESSURE 40 mmHg. MILD PULMONARY HYPERTENSION. ESTIMATED RIGHT ATRIAL PRESSURE 10 mmHg. COMMENTS: NORMAL LEFT VENTRICULAR EJECTION FRACTION. LEFT VENTRICULAR HYPERTROPHY. DILATED LEFT ATRIUM. MILD TRICUSPID REGURGITATION. MILD PULMONARY HYPERTENSION. TECHNOLOGIST: SUKI Butcher
--- NOTE | 2019-01-05 16:05 | P.PN ---
Subjective Date of Service: 01/05/19 Primary Care Provider: unknown Chief Complaint: Acute on chronic respiratory failure Subjective: No C/O voiced, Improving Patient seen and examined at bedside. Mother at bedside. Chart reviewed and case discussed with nursing staff. No acute events noted overnight Now off BiPAP, on nasal cannula No complaints. States she is doing great Review of Systems 10-point ROS is otherwise unremarkable Physical Examination - Vital Signs Temperature: 98.4 F Blood Pressure: 133/95 Pulse: 82 Respirations: 17 Pulse Ox (%): 92 - Physical Exam General: Alert, In no apparent distress, Oriented x3 HEENT: Atraumatic, PERRLA, EOMI Neck: Supple, JVD not distended Respiratory: Clear to auscultation bilaterally, Normal air movement Cardiovascular: Regular rate/rhythm, Normal S1 S2 Gastrointestinal: Normal bowel sounds, No tenderness Musculoskeletal: No tenderness Integumentary: No rashes Neurological: Normal speech, Normal tone, Normal affect Lymphatics: No axilla or inguinal lymphadenopathy - Studies Laboratory Data (last 24 hrs) 01/05/19 04:48: WBC 8.0, Hgb 16.1 H, Hct 52.4 H, Plt Count 216 D 01/05/19 04:48: Sodium 141, Potassium 4.0, BUN 16, Creatinine 0.67, Glucose 97, Magnesium 2.3 Medications List Reviewed: Yes Assessment And Plan - Current Problems (Diagnosis) (1) Obstructive sleep apnea Current Visit: Yes Status: Chronic (2) Respiratory acidosis Current Visit: Yes Status: Acute (3) Strep tonsillitis Current Visit: Yes Status: Acute (4) Hyperkalemia Current Visit: Yes Status: Resolved (5) Diabetes mellitus Onset Date: 01/04/19 Current Visit: Yes Status: Acute Qualifiers: Diabetes mellitus type: type 2 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 use: without skilled nursing use Diabetes mellitus complication status: with hyperglycemia Qualified Code(s): E11.65 - Type 2 diabetes mellitus with hyperglycemia (6) Acute and chronic respiratory failure ([id number]) Current Visit: Yes Status: Acute Qualifiers: Respiratory failure complication: hypoxia and hypercapnia Qualified Code(s) : J96.21 - Acute and chronic respiratory failure with hypoxia; J96.22 - Acute and chronic respiratory failure with hypercapnia (7) HTN (hypertension) Current Visit: Yes Status: Chronic Qualifiers: Hypertension type: essential hypertension Qualified Code(s): I10 - Essential (primary) hypertension (8) Obesity Current Visit: Yes Status: Chronic Qualifiers: Obesity type: unspecified obesity type Obesity classification: unspecified obesity classification Serious obesity comorbidity presence: unspecified whether serious comorbidity present Qualified Code(s): E66.9 - Obesity, unspecified - Plan Acute on chronic respiratory failure Respiratory acidosis ABG improved. Patient now off BiPAP. Currently on nasal cannula, will continue to wean off. Continue IV steroids and oral Diamox. Pulmonology consulted, recommendations appreciated Echocardiogram with dilated heart with mild pulmonary hypertension and ejection fraction of 54%. Strep tonsillitis Continue oral antibiotics obstructive sleep apnea Complicated by hypoventilation obesity syndrome and prior nasal surgery Patient with the CPAP machine at home that she does not use. States that she got from a friend that does not know how to use it/set it up. She will need to be to taught regarding settings/set up prior to discharge. Morbid obesity, BMI 56.9 Will address lifestyle modification education. Hyperkalemia This has resolved. Hypertension Patient previously on lisinopril hydrochlorothiazide. Will start losartan. Will need to monitor potassium level on medication. Will monitor and adjust appropriately. IV medication as needed provided. Diabetes mellitus type 2 This is a new diagnosis. Hemoglobin A1c 6.7. Will place on Accu-Chek and sliding scale. Patient would benefit with metformin at discharge. DVT prophylaxis: Lovenox GI prophylaxis: None Diet: 1800 diabetic Disposition: Stable off of BiPAP, improved ABG. Patient clinically improved and stable, will transfer to the floor.
[2019-01-06 05:41] LABS: Absolute Lymphocytes (CBC) 1.3 K/uL (0.7-4.9); Absolute Monocytes 0.6 K/uL (0.1-1.3); Absolute Neutrophil 4.5 K/uL (1.8-8.0); Basophils % 0.5 % (0-1.3); Eosinophils % 0.7 % (0-4.4); Hematocrit 54.5 % (36.0-45.0); Lymphocytes % 20.2 % (15.3-44.8); MPV 8.8 fL (7.6-11.3); Monocytes % 8.8 % (3.3-12.3)
[2019-01-06 05:54] LABS: BUN Blood Urea Nitrogen 12 mg/dL (7-18); Bicarbonate 32 mmol/L (21-32); Glucose Level 104 mg/dL (74-106); Magnesium 2.3 mg/dL (1.8-2.4); Potassium 3.8 mmol/L (3.5-5.1); Sodium Level 142 mmol/L (136-145)
[2019-01-06] MEDS ORDERED: POTASSIUM CL SA 10 MEQ TAB PO ONE (06:11)
[2019-01-06] MEDS: ENOXAPARIN 40 MG/0.4 ML SQ SCH (08:46)
[2019-01-06] MEDS: SPIRONOLACTONE 25 MG TABLET PO SCH (08:47)
[2019-01-06] MEDS: LOSARTAN POTASSIUM 50 MG TABLET PO SCH ×3 (08:47→22:21)
[2019-01-06] MEDS: AMOXICILLIN TRIHYDR 250 MG CAP PO SCH (08:47)
[2019-01-06] MEDS: acetaZOLAMIDE 250 MG TAB PO SCH (08:48)
--- NOTE | 2019-01-06 12:52 | P.PN ---
Subjective Date of Service: 01/06/19 Primary Care Provider: unknown Chief Complaint: Chronic respiratory failure Subjective: Improving (Patient is doing well she is alert responsive cooperative saturation 87% on room air) Review of Systems General: Weakness Respiratory: Shortness of Breath Physical Examination - Vital Signs Temperature: 97.4 F Blood Pressure: 109/67 Pulse: 77 Respirations: 18 Pulse Ox (%): 95 - Physical Exam General: Alert, Oriented x3 Respiratory: Clear to auscultation bilaterally, Diminished - Studies Laboratory Data (last 24 hrs) 01/06/19 05:16: WBC 6.4 D, Hgb 16.6 H, Hct 54.5 H, Plt Count 195 01/06/19 05:16: Sodium 142, Potassium 3.8, BUN 12, Creatinine 0.56, Glucose 104 , Magnesium 2.3 Medications List Reviewed: Yes Assessment & Plan - Problems (Diagnosis) (1) Acute and chronic respiratory failure ([id number]) Current Visit: Yes Status: Acute Plan: Patient is doing much better will check room air blood gases I have also advised the family members to take her CPAP machine to [facility] patient to see there is a problem with the machine and changes setting to a CPAP of 15 possible discharge continue with losartan and Diamox Qualifiers: Respiratory failure complication: hypoxia and hypercapnia Qualified Code(s) : J96.21 - Acute and chronic respiratory failure with hypoxia; J96.22 - Acute and chronic respiratory failure with hypercapnia Physician Review Additional Text: Impression: Acute on chronic respiratory failure with respiratory acidosis complicated with strep tonsillitis, obstructive sleep apnea, and hypoventilation obesity syndrome along with prior nasal surgery Morbid obesity Hyperkalemia Hypertension Diabetes mellitus type 2 Plan: Acute on chronic respiratory failure with respiratory acidosis complicated with strep tonsillitis, obstructive sleep apnea, and hypoventilation obesity syndrome along with prior nasal surgery: ABG improved. Patient remains on BiPAP. Will continue to wean off. Patient diagnosed with obstructive sleep apnea recently but not using her CPAP machine as per pulmonology. Education on the importance of her compliance with CPAP addressed. Will start patient on clear liquid diet and advance as tolerated. If the patient significantly improves patient may be able to be transferred to the floor. Patient on IV steroids and Diamox. Await further recommendations from pulmonology. Suspect this can be transitioned to oral medication if okay with pulmonology. Will recheck chest x-ray. Will obtain echocardiogram. Will transition from IV antibiotic therapy to oral. I will turn the service over to Dr. Palmer tomorrow. I will go over the plan of care with her. Anticipate discharge in the next 48-72 hr. Morbid obesity, BMI 56.9: Will address lifestyle modification education. Hyperkalemia: This has resolved. Hypertension: Patient previously on lisinopril hydrochlorothiazide. Will start losartan. Will need to monitor potassium level on medication. Will monitor and adjust appropriately. IV medication as needed provided. Diabetes mellitus type 2: This is a new diagnosis. Hemoglobin A1c 6.7. Will place on Accu-Chek and sliding scale. Patient would benefit with metformin at discharge.
--- NOTE | 2019-01-06 13:20 | P.PN ---
Subjective Date of Service: 01/06/19 Primary Care Provider: unknown Chief Complaint: Chronic respiratory failure Subjective: No C/O voiced, Improving Patient seen and examined at bedside. Mother at bedside. Chart reviewed and case discussed with nursing staff. No acute events noted overnight Now off BiPAP, on nasal cannula No complaints. States she is doing great Stable on the floor Review of Systems 10-point ROS is otherwise unremarkable Physical Examination - Vital Signs Temperature: 97.4 F Blood Pressure: 109/67 Pulse: 77 Respirations: 18 Pulse Ox (%): 95 - Physical Exam General: Alert, In no apparent distress, Oriented x3 HEENT: Atraumatic, PERRLA, EOMI Neck: Supple, JVD not distended Respiratory: Clear to auscultation bilaterally, Normal air movement Cardiovascular: Regular rate/rhythm, Normal S1 S2 Gastrointestinal: Normal bowel sounds, No tenderness Musculoskeletal: No tenderness Integumentary: No rashes Neurological: Normal speech, Normal tone, Normal affect Lymphatics: No axilla or inguinal lymphadenopathy - Studies Laboratory Data (last 24 hrs) 01/06/19 05:16: WBC 6.4 D, Hgb 16.6 H, Hct 54.5 H, Plt Count 195 01/06/19 05:16: Sodium 142, Potassium 3.8, BUN 12, Creatinine 0.56, Glucose 104 , Magnesium 2.3 Medications List Reviewed: Yes Assessment And Plan - Current Problems (Diagnosis) (1) Obstructive sleep apnea Current Visit: Yes Status: Chronic (2) Respiratory acidosis Current Visit: Yes Status: Acute (3) Strep tonsillitis Current Visit: Yes Status: Acute (4) Hyperkalemia Current Visit: Yes Status: Resolved (5) Diabetes mellitus Onset Date: 01/04/19 Current Visit: Yes Status: Acute Qualifiers: Diabetes mellitus type: type 2 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 use: without intermediate use Diabetes mellitus complication status: with hyperglycemia Qualified Code(s): E11.65 - Type 2 diabetes mellitus with hyperglycemia (6) Acute and chronic respiratory failure ([id number]) Current Visit: Yes Status: Acute Qualifiers: Respiratory failure complication: hypoxia and hypercapnia Qualified Code(s) : J96.21 - Acute and chronic respiratory failure with hypoxia; J96.22 - Acute and chronic respiratory failure with hypercapnia (7) HTN (hypertension) Current Visit: Yes Status: Chronic Qualifiers: Hypertension type: essential hypertension Qualified Code(s): I10 - Essential (primary) hypertension (8) Obesity Current Visit: Yes Status: Chronic Qualifiers: Obesity type: unspecified obesity type Obesity classification: unspecified obesity classification Serious obesity comorbidity presence: unspecified whether serious comorbidity present Qualified Code(s): E66.9 - Obesity, unspecified - Plan Acute on chronic respiratory failure Respiratory acidosis ABG improved. Patient now off BiPAP. Currently on nasal cannula, will continue to wean off. Continue IV steroids and oral Diamox. Pulmonology consulted, recommendations appreciated Echocardiogram with dilated heart with mild pulmonary hypertension and ejection fraction of 54%. Strep tonsillitis Continue oral antibiotics obstructive sleep apnea Complicated by hypoventilation obesity syndrome and prior nasal surgery Patient with the CPAP machine at home that she does not use. States that she got from a friend that does not know how to use it/set it up. She will need to be to taught regarding settings/set up prior to discharge. Morbid obesity, BMI 56.9 Will address lifestyle modification education. Hyperkalemia This has resolved. Hypertension Patient previously on lisinopril hydrochlorothiazide. Started on losartan, continue. Will need to monitor potassium level on medication. Will monitor and adjust appropriately. IV medication as needed provided. Diabetes mellitus type 2 This is a new diagnosis. Hemoglobin A1c 6.7. Will place on Accu-Chek and sliding scale. Patient would benefit with metformin at discharge. DVT prophylaxis: Lovenox GI prophylaxis: None Diet: 1800 diabetic Disposition: Pending symptomatic improvement. Possible DC home in the next 24- 48 hours
[2019-01-06 18:23] LABS: Arterial Blood Carboxyhemoglob 2.2 % (0-1.5); Blood O2 Saturation 93.4 % (92-98.5)
[2019-01-07 04:55] LABS: BUN Blood Urea Nitrogen 13 mg/dL (7-18); Bicarbonate 32 mmol/L (21-32); Glucose Level 116 mg/dL (74-106); Potassium 4.6 mmol/L (3.5-5.1); Sodium Level 141 mmol/L (136-145)
--- NOTE | 2019-01-07 09:30 | P.PN ---
Date of Service: 01/06/19 Patient was found be hypercapnic. She was placed on BiPAP again. Recheck ABGs in the morning and pulmonary consultation as well.
[2019-01-07] MEDS: acetaZOLAMIDE 250 MG TAB PO SCH (09:41)
[2019-01-07] MEDS: ENOXAPARIN 40 MG/0.4 ML SQ SCH (09:42)
[2019-01-07] MEDS: LOSARTAN POTASSIUM 50 MG TABLET PO SCH (09:43)
--- NOTE | 2019-01-07 16:01 | P.PN ---
Subjective Date of Service: 01/07/19 Primary Care Provider: unknown Chief Complaint: Chronic respiratory failure Subjective: Improving Patient seen and examined at bedside. Mother at bedside. Chart reviewed and case discussed with nursing staff. No acute events noted overnight Now off BiPAP, on nasal cannula No complaints. States she is doing great Stable on the floor Review of Systems 10-point ROS is otherwise unremarkable Physical Examination - Vital Signs Temperature: 96.9 F Blood Pressure: 126/67 Pulse: 97 Respirations: 20 Pulse Ox (%): 90 - Physical Exam General: Alert, In no apparent distress Neck: Supple, JVD not distended Respiratory: Clear to auscultation bilaterally, Normal air movement Cardiovascular: Regular rate/rhythm, Normal S1 S2 Gastrointestinal: Normal bowel sounds, No tenderness Integumentary: No rashes Neurological: Normal speech, Normal tone, Normal affect - Studies Laboratory Data (last 24 hrs) 01/07/19 03:51: Sodium 141, Potassium 4.6, BUN 13, Creatinine 0.61, Glucose 116 H Medications List Reviewed: Yes Assessment And Plan - Current Problems (Diagnosis) (1) Obstructive sleep apnea Current Visit: Yes Status: Chronic (2) Respiratory acidosis Current Visit: Yes Status: Acute (3) Strep tonsillitis Current Visit: Yes Status: Acute (4) Hyperkalemia Current Visit: Yes Status: Resolved (5) Diabetes mellitus Onset Date: 01/04/19 Current Visit: Yes Status: Acute Qualifiers: Diabetes mellitus type: type 2 Diabetes mellitus longterm insulin use: without superintendent terminal use Diabetes mellitus complication status: with hyperglycemia Qualified Code(s): E11.65 - Type 2 diabetes mellitus with hyperglycemia (6) Acute and chronic respiratory failure ([id number]) Current Visit: Yes Status: Acute Qualifiers: Respiratory failure complication: hypoxia and hypercapnia Qualified Code(s) : J96.21 - Acute and chronic respiratory failure with hypoxia; J96.22 - Acute and chronic respiratory failure with hypercapnia (7) HTN (hypertension) Current Visit: Yes Status: Chronic Qualifiers: Hypertension type: essential hypertension Qualified Code(s): I10 - Essential (primary) hypertension (8) Obesity Current Visit: Yes Status: Chronic Qualifiers: Obesity type: unspecified obesity type Obesity classification: unspecified obesity classification Serious obesity comorbidity presence: unspecified whether serious comorbidity present Qualified Code(s): E66.9 - Obesity, unspecified - Plan Acute on chronic respiratory failure Respiratory acidosis ABG still with hypercapnea. patient back on bi-pap; was instructed by William Patient now off BiPAP. Currently on nasal cannula, will continue to wean off. Continue IV steroids and oral Diamox. Pulmonology consulted, recommendations appreciated Echocardiogram with dilated heart with mild pulmonary hypertension and ejection fraction of 54%. Strep tonsillitis Continue oral antibiotics obstructive sleep apnea Complicated by hypoventilation obesity syndrome and prior nasal surgery Patient with the CPAP machine at home that she does not use. States that she got from a friend that does not know how to use it/set it up. She will need to be to taught regarding settings/set up prior to discharge. Morbid obesity, BMI 56.9 Will address lifestyle modification education. Hyperkalemia This has resolved. Hypertension Patient previously on lisinopril hydrochlorothiazide. Started on losartan, continue. Will need to monitor potassium level on medication. Will monitor and adjust appropriately. IV medication as needed provided. Diabetes mellitus type 2 This is a new diagnosis. Hemoglobin A1c 6.7. Will place on Accu-Chek and sliding scale. Patient would benefit with metformin at discharge. DVT prophylaxis: Lovenox GI prophylaxis: None Diet: 1800 diabetic Disposition: Pending symptomatic improvement. Possible DC home in the next 24- 48 hours
--- NOTE | 2019-01-09 08:32 | P.CNS ---
Date of Consult: 01/02/19 I spoke with ER FIONA Lew regarding patient on Saturday night and was advised there was no clinical sign of acute airway obstruction and did not need to evaluate the patient immediately. I spoke with Dr Chang at approximately 8AM on SaturdayJanuary 03. I was in [place] at that time for a social event. We discussed that patient's CO2 narcosis and use of BiPAP. He was considering intubation. I advised that I was not immediately available but that given the patient's habitus that if intubation were required, the [place] [facility] would be important to have available. He did not indicate a plan for immediate intubation at that time but was going to see how she did. I advised him that I would be available and back in [place] by about 11AM and to call if I was needed. I did not personally examine the patient. In review of the records, I am concerned about the comment in the H&P that she was transferred to this hospital for an ENT evaluation and that I was not notified of this prior to her arrival in the ER. I will review this issue with administration to see where the failure of communication lies.
== END 2019-01-07 18:11 | disposition home or self-care (01) | DRG 189 ==
LOC: 3RD-ICU 21:30 → 4TH 01-05 18:00
PROVIDERS: ADMIT Internal Medicine; ATTEND Internal Medicine
PROC: 5A09457 Assistance with Respiratory Ventilation, 24-96 Consecutive Hours, Continuous Positive Airway Pressure (ICD-10-PCS; principal; 2019-01-03)
DX: J96.22 Acute and chronic respiratory failure with hypercapnia (principal); Z68.43 Body mass index [BMI] 50.0-59.9, adult; E87.2 Acidosis; E66.2 Morbid (severe) obesity with alveolar hypoventilation; J96.21 Acute and chronic respiratory failure with hypoxia; J44.9 Chronic obstructive pulmonary disease, unspecified; J03.00 Acute streptococcal tonsillitis, unspecified; E87.5 Hyperkalemia; I10 Essential (primary) hypertension; E11.9 Type 2 diabetes mellitus without complications; G47.33 Obstructive sleep apnea (adult) (pediatric)
CPT/HCPCS: 36415; 71045; 80048; 80053; 81003; 81015; 82805; 83036; 83605; 83735; 84443; 85025; 93306; 94660; 94760; J0295; J0360; J1120; J1650; J2930; J7030

== ENCOUNTER 2020-06-23 21:14 | Inpatient (IN) | payer OTHER ==
--- OUTSIDE RECORDS SUMMARY | 2020-06-23 21:18 | XMS REPORT | Continuity of Care Document ---
:1975 Author Organization [employer] Care Team Providers Name Role Phone [employer] Unavailable Un available Problems Problem Status Onset Classification Date Comments Sourc e Date Reported SHORTNESS OF Active 08/12/20 MH Chris s BREATH/ AMS 17 Medical [place] Jaw pain Active 07/03/20 Problem 08/22/2017 Data migrated [place] (finding) 12 from [facility] Center 03/12/15. Trigeminal Active 07/03/20 Problem 08/22/2017 Data migrated [place] neuralgia 12 from [facility] (disorder) Centricity on [facility] r 03/12/15. Chronic Active 06/11/20 Problem 08/22/2017 Data migrated [place] maxillary 12 from [facility] sinusitis Centricity on Center (disorder) 03/12/15. Cough (finding) Active 06/11/20 Problem 08/22/2017 Data migrated [facility] [place] 12 from [facility] on Center 03/12/15. Patient Active 06/11/20 Problem 08/22/2017 Data migrated [place] non-compliance - 12 from [employer] ical general Centricity on Center (context-depende 03/12/15. nt category) Contraception Active 06/03/20 Problem 08/22/2017 Data migrated M [facility] [place] care management 12 from [facility] (procedure) Centricity on [facility] er 03/12/15. Morbid obesity Active 06/03/20 Problem 08/22/2017 Data migrated [facility] [place] (disorder) 12 from [facility] on Center 03/12/15. Reactive airways Active 05/16/20 Problem 08/22/2017 Data migrate d MH [place] dysfunction 12 from [facility] syndrome Centricity on Center (disorder) 03/12/15. Congestive heart Resolved Problem 08/22/2017 [facility] failure Medical (disorder) Center Hypertensive Resolved Problem 08/22/2017 MH [place] disorder, Medical systemic Center arterial (disorder) CEREBRAL EDEMA Active [place] [facility] Medications Medication Details Route Status Patient Ordering Order Source Instructions Provider Date acetaZOLAMIDE 500 mg = 2 [place] 250 mg oral tab, PO, BID, 017 Medica l tablet # 360 tab, 6 Center Refill(s), Pharmacy: [facility]/pharmacy #[id number] docusate-senna 1 tab, PO, Active [place] 50 mg-8.6 mg Daily, 0 017 Medical oral tablet Refill(s) [place] chlorhexidine 0.018 gm = 15 [place] topical 0.12% mL, Swab 017 Medical liquid Mouth, Q4H, 0 Center Refill(s) acetaZOLAMIDE 500 mg = 2 Inactive [place] 250 mg oral tab, PO, BID, 017 Medica l tablet 0 Refill(s) [place] acetaminophen 100.4 F, 0 Active [place] 325 mg oral Refill(s) 017 Medical tablet Center influenza virus Notes: (Same Inactive [facility] vaccine, as: Fluzone [address] [place] [address] inactivated Quadrivalent, [place] Fluarix Quadrivalent) For 3 years of age and older (0.5 mL IM) heparin 5000 Notes: No Longer [facility] units/mL porcine Active 017 Medical injectable heparin Center solution [facility] Notes: (Same No Longer [place] 50 mg-8.6 mg as Senokot-S) Active 017 Medic al oral tablet Equiv. to Center Brit-Colace. acetaminophen Notes: Do not No Longer [place] exceed 4 Active 017 Medical gm/day. Center (Same as: Tylenol) pneumococcal Notes: (Same Inactive [place] 23-valent as: Pneumovax 017 Medical vaccine 23) Center Refrigerate Diamox Notes: (Same No Longer [facility] as: Diamox) Active 017 [facility] Center Diamox 250 mg, Inactive María Route: PO, 017 Medical Drug form: Center TAB, Daily, Dosing Weight 136.364, kg, Start date: 08/16/17 10:11:00 CDT, Duration: 30 day, Stop date: 09/15/17 9:00:00 EXTRUSION DIE COORDINATOR Saline Flush Notes: Same No Longer [place] 0.9% as: BD Active 017 Medical Posiflush Center Sterile hydrochlorothia 1 tab, PO, No Longer [facility] zide-lisinopril Daily, [address] [place] [address] 12.5 mg-10 mg Refill(s) Center oral tablet chlorhexidine Notes: (Same No Longer [facility] topical 0.12% As: Peridex) Active 017 Medic al liquid Center Insulin regular 60 units) No Longer [facility] WASTE: F/P - Active [facility] Medical Black; E - Center Municipal Trash Bin Stable for 28 days at room temperature Expires in days from _Date Saline Flush Notes: Same No Longer [place] 0.9% as: BD Active [address] [place] [address] Posiflush [place] Sterile valproic acid 2,000 mg, Inactive [place] 100 mg/mL Route: IVPB, [address] [place] [address] intravenous ONCE, Dosing Center solution Weight 136.364, kg, Priority: NOW, Start date: 08/16/17 1:58:00 CDT, Stop date: 08/16/17 1:58:00 CDT Allergies, Adverse Reactions, Alerts No Known Medication Allergies Immunizations Immunization Date Given Site Status Last Comments Source Updated influenza virus 08/17/2017 Left completed [place] [place] vaccine, deltoid [facility] inactivated Center pneumococcal 08/17/[address] [facility] as 23-valent vaccine deltoid Pr dical [place] Results Order Name Results Value Reference Date Interpretation Comments Gillian rce Range CHEM PANEL Phosphorus 4.9 2.5 - 4.5 08/18 [facility] CHEM PANEL Magnesium Lvl 2.4 1.8 - 2.4 08/18 [facility] CHEM PANEL BUN 17 7 - 22 08/18 [facility] CHEM PANEL Creatinine 0.69 0.50 - 08/18 [place] Lvl 1.40 [facility] CHEM PANEL Chloride Lvl 103 95 - 109 08/18 [place] [facility] CHEM PANEL Potassium Lvl 4.1 3.5 - 5.1 08/18 [facility] CHEM PANEL Sodium Lvl 140 135 - 145 08/18 [facility] CHEM PANEL eGFR 109 08/18 Result Comment: The Medical eGFR is Center calculated using the CKD-EPI formula. In most young, healthy individuals the eGFR will be >90 mL/min/1.73m2 . The eGFR declines with age. An eGFR of 60-89 may be normal in some populations, particularly the elderly, for whom the CKD-EPI formula has not been extensively validated. Use of the eGFR is not recommended in the following populations:< br/>
Yolanda viduals with unstable creatinine concentration s, including patients and those with serious co-morbid conditions.<b r/>
Patie nts with extremes in muscle mass or diet.

The data above are obtained from the National Kidney Disease Education Program (NKDEP) which additionally recommends that when the eGFR is used in patients with extremes of body mass index for purposes of drug dosing, the eGFR should be multiplied by the estimated BMI. CHEM PANEL CO2 30 24 - 32 08/18 [facility] CHEM PANEL Calcium Lvl 9.1 8.5 - 10.5 08/18 [facility] CHEM PANEL Glucose Lvl 100 70 - 99 08/18 2016 [facility] CHEM PANEL AGAP 11.1 10.0 - 08/18 [place] 20.0 [facility] HEMATOLOGY Segs 76.7 45.0 - 08/18 75.0 [facility] HEMATOLOGY Monocytes 5.4 2.0 - 12.0 08/18 [facility] HEMATOLOGY Lymphocytes 16.7 20.0 - 08/18 [place] 40.0 [facility] HEMATOLOGY Basophils 0.6 0.0 - 1.0 08/18 [facility] HEMATOLOGY Eosinophils 0.6 0.0 - 4.0 08/18 [facility] HEMATOLOGY Segs-Bands # 5.9 1.5 - 8.1 08/18 [facility] HEMATOLOGY Monocytes # 0.4 0.0 - 0.8 08/18 [facility] HEMATOLOGY Lymphocytes # 1.3 1.0 - 5.5 08/18 [place] [facility] HEMATOLOGY RBC 5.88 4.20 - 08/18 [place] 5.40 [facility] HEMATOLOGY WBC 7.8 3.7 - 10.4 08/18 [facility] HEMATOLOGY Hgb 16.4 12.0 - 08/18 16.0 [facility] HEMATOLOGY MCHC 31.3 32.0 - 08/18 36.0 [facility] HEMATOLOGY MCH 28.0 27.0 - 08/18 31.0 [facility] HEMATOLOGY MCV 89.3 80.0 - 08/18 98.0 [facility] HEMATOLOGY Hct 52.6 36.0 - 08/18 48.0 [facility] HEMATOLOGY Platelet 210 133 - 450 08/18 [facility] HEMATOLOGY RDW 17.7 11.5 - 08/18 14.5 [facility] HEMATOLOGY MPV 8.9 7.4 - 10.4 08/18 [facility] BACTERIAL - MRSA by PCR Negative 08/17 [facility] SEROLOGY (08/17/17 1:42 PM) [facility] CHEM PANEL eGFR 114 08/17 Result Comment: The [facility] eGFR is Center calculated using the CKD-EPI formula. In most young, healthy individuals the eGFR will be >90 mL/min/1.73m2 . The eGFR declines with age. An eGFR of 60-89 may be normal in some populations, particularly the elderly, for whom the CKD-EPI formula has not been extensively validated. Use of the eGFR is not recommended in the following populations:< br/>
Yolanda viduals with unstable creatinine concentration s, including patients and those with serious co-morbid conditions.<b r/>
Patie nts with extremes in muscle mass or diet.

The data above are obtained from the National Kidney Disease Education Program (NKDEP) which additionally recommends that when the eGFR is used in patients with extremes of body mass index for purposes of drug dosing, the eGFR should be multiplied by the estimated BMI. CHEM PANEL Chloride Lvl 102 95 - 109 08/17 [facility] CHEM PANEL CO2 32 24 - 32 08/17 [facility] CHEM PANEL Calcium Lvl 9.1 8.5 - 10.5 08/17 [facility] CHEM PANEL Glucose Lvl 104 70 - 99 08/17 [facility] CHEM PANEL Sodium Lvl 139 135 - 145 08/17 [facility] CHEM PANEL Potassium Lvl 4.1 3.5 - 5.1 08/17 [facility] CHEM PANEL BUN 17 7 - 22 08/17 [facility] CHEM PANEL Creatinine 0.60 0.50 - 11 [place] Lvl 1.40 [facility] CHEM PANEL AGAP 9.1 10.0 - 11 20.0 [facility] CHEM PANEL Magnesium Lvl 2.4 1.8 - 2.4 08/17 [facility] CHEM PANEL Phosphorus 3.3 2.5 - 4.5 08/17 [facility] HEMATOLOGY MCV 90.9 80.0 - 08/17 98.0 [facility] HEMATOLOGY MCH 28.0 27.0 - 08/17 31.0 [facility] HEMATOLOGY MCHC 30.8 32.0 - 08/17 36.0 [facility] HEMATOLOGY RDW 18.0 11.5 - 08/17 14.5 [facility] HEMATOLOGY Platelet 205 133 - 450 08/17 [facility] HEMATOLOGY MPV 9.1 7.4 - 10.4 08/17 [facility] HEMATOLOGY WBC 8.2 3.7 - 10.4 08/17 [facility] HEMATOLOGY RBC 5.72 4.20 - 08/17 5.40 [facility] HEMATOLOGY Hgb 16.0 12.0 - 08/17 16.0 [facility] HEMATOLOGY Hct 52.0 36.0 - 08/17 [place] 48.0 [facility] HEMATOLOGY Segs-Bands # 6.2 1.5 - 8.1 08/17 [facility] HEMATOLOGY Monocytes # 0.5 0.0 - 0.8 08/17 [facility] HEMATOLOGY Lymphocytes # 1.4 1.0 - 5.5 08/17 [facility] HEMATOLOGY Segs 76.1 45.0 - 08/17 [place] 75.0 [facility] HEMATOLOGY Basophils 0.4 0.0 - 1.0 08/17 [facility] HEMATOLOGY Lymphocytes 16.9 20.0 - 11 [place] 40.0 [facility] HEMATOLOGY Eosinophils 0.5 0.0 - 4.0 08/17 [facility] HEMATOLOGY Monocytes 6.1 2.0 - 12.0 08/17 [facility] BACTERIAL - Strep Negative Negative 08/16 [facility] SEROLOGY pneumoniae Ag (08/16/17 5:00 PM) [facility] BACTERIAL - Source Strep Cerebral 08/16 [facility] as SEROLOGY Spinal /2016 [facility] BODY FLUIDS Protein CSF 36 15 - 45 08/16 [facility] BODY FLUIDS Clarity CSF Clear Clear 08/16 [facility] (08/16/17 5:00 PM) [facility] BODY FLUIDS Supernat CSF Colorless Colorless 08/16 [facility] (08/16/17 5:00 PM) [facility] BODY FLUIDS WBC CSF 2 0 - 53 08/16 [facility] BODY FLUIDS RBC CSF 1 0 - 03 08/16 [facility] BODY FLUIDS Color CSF Colorless Colorless 08/16 [place] (08/16/17 5:00 PM) [facility] BODY FLUIDS Tube Num CSF 4 08/16 [facility] BODY FLUIDS Glucose CSF 77 45 - 80 08/16 [facility] BODY FLUIDS RBC CSF 1 0 - 03 08/16 [facility] BODY FLUIDS WBC CSF 3 0 - 53 08/16 [facility] [address] [place] [address] BODY FLUIDS Supernat CSF Colorless Colorless 08/16 [facility] (08/16/17 5:00 PM) [facility] BODY FLUIDS Clarity CSF Clear Clear 08/16 [facility] (08/16/17 5:00 PM) [facility] BODY FLUIDS Color CSF Colorless Colorless 08/16 [place] (08/16/17 5:00 PM) [facility] BODY FLUIDS Tube Num CSF 1 08/16 [facility] FUNGAL - Crypto Ag CSF Negative Negative 08/16 [facility] SER[facility] (08/16/17 5:00 PM) /2016 [facility] URINE AND UA Nitrite Negative Negative 08/16 [facility] STOOL (08/15/17 10:31 PM) [facility] URINE AND UA Leuk Est Negative Negative 08/16 [facility] STOOL (08/15/17 10:31 PM) /2016 [facility] URINE AND UA 1.0 0.1 - 1.0 08/16 [facility] STOOL Urobilinogen /2016 [facility] URINE AND UA Bili Negative Negative 08/16 [facility] STOOL *NA* Medical (08/15/17 10:31 PM) Cente r URINE AND UA Blood Large Negative 08/16 [facility] STOOL *ABN* Medical (08/15/17 10:31 PM) Cente r URINE AND UA Glucose Negative Negative 08/16 [facility] (08/15/17 10:31 PM) [facility] URINE AND UA Ketones Negative Negative 08/16 [facility] STOOL *NA* Medical (08/15/17 10:31 PM) Cente r URINE AND UA Spec Grav 1.010 <=1.030 08/16 [facility] STOOL [facility] URINE AND UA pH 8.5 5.0 - 8.0 08/16 [facility] URINE AND UA Turbidity Cloudy Clear 08/16 [facility] STOOL *ABN* [facility] (08/15/17 10:31 PM) Cente r URINE AND UA Protein Trace Negative 08/16 [facility] *ABN* Medical (08/15/17 10:31 PM) Cente r URINE AND UA Color Yellow Yellow 08/16 [facility] STOOL *NA* /2016 [facility] (08/15/17 10:31 PM) Cente r URINE AND UA WBC 0-2 /HPF None Seen 08/16 [facility] /HPF /2016 [facility] URINE AND UA RBC >100 /HPF 0 - 2 08/16 [facility] URINE AND UA Bacteria None Seen None Seen 08/16 [facility] as STOOL (08/15/17 10:31 PM) [facility] URINE AND UA Sq Epi Rare /LPF Few /LPF 08/16 [facility] STOOL [facility] URINE CHEM U Preg Negative Negative 08/16 [facility] (08/15/17 10:31 PM) [facility] CARDIAC BNP 38 <=100 08/16 [facility] ENZYMES pg/mL /2016 [facility] CARDIAC Troponin-I 0.35 0.00 - 08/16 [facility] ENZYMES 0.40 /2016 [facility] HEMATOLOGY Sed Rate 9 0 - 20 08/16 [facility] IMMUNOLOGY C-REACTIVE 11.5 <=2.9 mg/L 08/16 [place] PROTEIN /2016 [facility] IMMUNOLOGY CDC HIV 4th Negative Negative 08/16 [place] GEN *NA* Medical (08/15/17 9:40 PM) [place] BLOOD BANK ABO/Rh O NEG 08/16 [facility] RESULTS [facility] BLOOD BANK Antibody Scrn Negative 08/16 RESULTS (08/15/17 9:34 PM) [facility] CHEM PANEL eGFR 122 08/16 Result Comment: The [facility] eGFR is Center calculated using the CKD-EPI formula. In most young, healthy individuals the eGFR will be >90 mL/min/1.73m2 . The eGFR declines with age. An eGFR of 60-89 may be normal in some populations, particularly the elderly, for whom the CKD-EPI formula has not been extensively validated. Use of the eGFR is not recommended in the following populations:< br/>
Yolanda viduals with unstable creatinine concentration s, including patients and those with serious co-morbid conditions.<b r/>
Patie nts with extremes in muscle mass or diet.

The data above are obtained from the National Kidney Disease Education Program (NKDEP) which additionally recommends that when the eGFR is used in patients with extremes of body mass index for purposes of drug dosing, the eGFR should be multiplied by the estimated BMI. CHEM PANEL Sodium Lvl 138 135 - 145 08/16 [facility] CHEM PANEL Potassium Lvl 5.3 3.5 - 5.1 08/16 [place] [facility] CHEM PANEL Calcium Lvl 8.2 8.5 - 10.5 08/16 [place] [facility] CHEM PANEL Chloride Lvl 103 95 - 109 08/16 [facility] CHEM PANEL CO2 36 24 - 32 08/16 [facility] CHEM PANEL BUN 11 7 - 22 08/16 [facility] CHEM PANEL Creatinine 0.49 0.50 - 08/16 [place] Lvl 1.40 [facility] CHEM PANEL Glucose Lvl 135 70 - 99 08/16 [facility] CHEM PANEL AGAP 4.3 10.0 - 08/16 20.0 [facility] HEMATOLOGY Monocytes # 0.2 0.0 - 0.8 08/16 [facility] HEMATOLOGY Anisocyte 1+ None Seen 08/16 [facility] *ABN* /2016 Medical (08/15/17 9:34 PM) [place] HEMATOLOGY Hypochrom 1+ None Seen 08/16 [facility] (08/15/17 9:34 PM) [facility] HEMATOLOGY Lymphocytes 5.8 20.0 - 08/16 [place] 40.0 /2016 [facility] HEMATOLOGY Monocytes 1.7 2.0 - 12.0 08/16 [facility] HEMATOLOGY Lymphocytes # 0.5 1.0 - 5.5 08/16 [place] [facility] HEMATOLOGY Basophils 0.3 0.0 - 1.0 08/16 [facility] HEMATOLOGY Segs-Bands # 8.1 1.5 - 8.1 08/16 [place] /2016 [facility] HEMATOLOGY Plt Morph Normal 08/16 [facility] (08/15/17 9:34 PM) [facility] HEMATOLOGY Segs 92.2 45.0 - 08/16 [place] 75.0 /2016 [facility] HEMATOLOGY PTT 29.9 22.9 - 08/16 35.8 /2016 [facility] HEMATOLOGY PT 13.6 12.0 - 08/16 [place] 14.7 /2016 [facility] HEMATOLOGY INR 1.04 0.85 - 08/16 [place] 1.17 [facility] HEMATOLOGY Hgb 15.4 12.0 - 08/16 [place] 16.0 /2016 [facility] HEMATOLOGY Hct 50.3 36.0 - 08/16 [place] 48.0 [facility] HEMATOLOGY MCV 89.4 80.0 - 08/16 98.0 /2017 [facility] HEMATOLOGY MCH 27.4 27.0 - 08/16 [place] 31.0 /2016 [facility] HEMATOLOGY RDW 17.6 11.5 - 08/16 [place] 14.5 2017 [facility] HEMATOLOGY Platelet 215 133 - 450 08/16 [facility] HEMATOLOGY MCHC 30.7 32.0 - 08/16 [place] 36.0 /2017 [facility] HEMATOLOGY WBC 8.8 3.7 - 10.4 08/16 [facility] HEMATOLOGY RBC 5.63 4.20 - 08/16 [place] 5.40 /2016 [facility] HEMATOLOGY MPV 8.3 7.4 - 10.4 08/[address] [place] [address] Pathology Reports No Data Provided for This Section Diagnostic Reports Report Value Date Source Spine lumbar puncture EXAM: Lumbar Puncture, fluoroscopic guidking ce. 08/16/2017 [facility] fluoro DX DATE: 08/16/2017 at 1539 hours C enter INDICATION: Idiopathic intracranial hypertensio n. TECHNIQUE Informed consent was obtaine d from the patient prior to the procedure which was done with the patient prone. Her lower back was prepped and draped in the usual sterile fashion. Following time-out, a 20 gauge 6' long spinal Quincke needle was advanced into the thecal sac at the L2- L3 interspace under fluoroscopic guidance. FINDINGS: Pressure measureme nts were done with the patient in the left lateral decubitus position. The opening pressure was 29 cm H2O. A total volume of 19 mL of clear spinal fluid was collected. The closing pressure was 20 cm decubitus. FLUOROSCOPY TIME: 1.04 minutes with a skin dose of 104.72 mGycm2. IMPRESSION: 1. Fluoroscopically guided LP. 2. Slightly elevated opening pressure, normal c losing pressure. Brain w/wo contrast EXAM: MRI BRAIN WITH AND WITHOUT CONTRAST [facility] MRI EXAM: MRV BRAIN WITH AND WITHOUT CONTRAST Center DATE: 08/16/2017 5:56 AM CDT INDICATION: - diffuse cerebral edema ADDITIONAL INFORMATION: None COMPARISON: MRI brain 09/02/2012, CT brain 08/15. TECHNIQUE: Multiplanar, mult isequence MRI of the brain with and without intravenous contrast. MRV images of the brain were obtained utilizing a [id number] technique. Maximal intensity projection ( MIP) computer-reformatted im ages are submitted for interpretation in multiple obliquities along with the source images. IV contrast: 20 mL Dotarem. FINDINGS: MRI BRAIN: There is flattening of the bilateral optic discs . Diffusion-weighted images fail to demonstrate an y recent ischemic change. There is no mass lesion or s ignal change. The ventricles and extra-axial spaces are normal. There is no acute or chronic hemorrhagic change. The intracranial arterial and venous structures demonstrate n ormal flow voids. No parenchymal or leptomeninge al enhancement. Mild mucosal thickening in t he left maxillary sinus. The mastoid air cells are clear. MRV BRAIN: Narrowing of the bilateral d istal transverse sinuses with small filling defects likely representing arachnoid granulations. Otherwise, there is appropriate flow signal is present in the deep cerebral veins and in the major dural venous sinuses. IMPRESSION: 1. Nonspecific flattening of the bilateral opti c discs. 2. Bilateral narrowing of t he transverse sinuses with small filling defect likely represents archnoid granulations. Brain w contrast MRV EXAM: MRI BRAIN WITH AND WITHOUT CONTRAST 1 10/16/2016 [facility] EXAM: MRV BRAIN WITH AND WITHOUT CONTRAST Center DATE: 08/16/2017 5:56 AM CDT INDICATION: - diffuse cerebral edema ADDITIONAL INFORMATION: None COMPARISON: MRI brain 09/02/2012, CT brain 08/15. TECHNIQUE: Multiplanar, mult isequence MRI of the brain with and without intravenous contrast. MRV images of the brain were obtained utilizing a [id number] technique. Maximal intensity projection ( MIP) computer-reformatted im ages are submitted for interpretation in multiple obliquities along with the source images. IV contrast: 20 mL Dotarem. FINDINGS: MRI BRAIN: There is flattening of the bilateral optic discs . Diffusion-weighted images fail to demonstrate an y recent ischemic change. There is no mass lesion or s ignal change. The ventricles and extra-axial spaces are normal. There is no acute or chronic hemorrhagic change. The intracranial arterial and venous structures demonstrate n ormal flow voids. No parenchymal or leptomeninge al enhancement. Mild mucosal thickening in t he left maxillary sinus. The mastoid air cells are clear. MRV BRAIN: Narrowing of the bilateral d istal transverse sinuses with small filling defects likely representing arachnoid granulations. Otherwise, there is appropriate flow signal is present in the deep cerebral veins and in the major dural venous sinuses. IMPRESSION: 1. Nonspecific flattening of the bilateral opti c discs. 2. Bilateral narrowing of t he transverse sinuses with small filling defect likely represents archnoid granulations. Brain wo contrast CT CT HEAD WITHOUT CONTRAST 08/15/2017 [facility] DATE: 08/15/2017 at 9:53 PM. Cent er COMPARISON: MRI 09/02/2012. HISTORY: . Altered mental s tatus. Headache, nausea and vomiting.- brain swelling. TECHNIQUE: Contiguous axial images of the brain were obtained without intravenous contrast administration. Sagittal and coronal reformatted images were also provided. DLP: 955.8 mGy-cm. FINDINGS: There are no acute hemorrhag es or acute infarcts. The rosa-white interfaces are well defined. As on the prior MRI there is robust brain volume in this relatively young patient of 42 years of age. Cortical sulci over the convexities, and the basal cisterns are not as well-visualized which may be due to difference in contras t resolution between CT and MRI however mild diffuse edema is also a consideration. There is streak artifact at the foramen magnum however 2.3 mm of cerebellar tonsillar was present on the prior MRI and is likely still present. There are no mass lesions or extra axial collect ions. There are no acute bony abnormalities. The [place] rium is intact. IMPRESSION: 1. Effacement of the cortica l sulci and basal cisterns concerning for diffuse [...] is seen. [place] SECTION: Neuro Chest 1view DX EXAM: XR CHEST 1 VIEW 08/15/2017 [facility] edical DATE: 08/15/2017 9:17 PM CDT Cent er INDICATION: Shortness of breath COMPARISON: None. TECHNIQUE: AP chest [place] SECTION: ER FINDINGS: Lines, tubes and hardware: None. Lungs and pleura: Minimal sc arring in the left lung base noted. No pulmonary or pleural based abnormality is identified. Pulmonary vascularity is normal. Heart and mediastinum: The h eart size is mildly enlarged although magnified by technique. The mediastinal contours are normal. Bones: No acute bony abnormality is identified. IMPRESSION: No acute cardiopulmonary abnormality. Mild cardiomegaly Consultation Notes No Data Provided for This Section Discharge Summaries No Data Provided for This Section History and Physicals No Data Provided for This Section Vital Signs Vital Sign Value Date Comments Source Temperature Oral (F) 98.2 F 08/19/2017 [facility] Respitory Rate 18 08/19/2017 [facility] Systolic (mm Hg) 110 08/19/2017 [facility] 76 08/19/2017 [facility] Systolic (mm Hg) 142 08/19/2017 [facility] Diastolic (mm Hg) 79 08/19/2017 [facility] Temperature Oral (F) 98.9 F 08/19/2017 [facility] Respitory Rate 18 08/19/2017 [facility] Respitory Rate 16 08/19/2017 [facility] Systolic (mm Hg) 128 08/19/2017 [facility] dical [place] Diastolic (mm Hg) 78 08/19/2017 [facility] Temperature Oral (F) 98.3 F 08/19/2017 [facility] BMI Calculated 58.71 08/16/2017 [facility] Height 152.4 cm 08/16/2017 [facility] Weight 136.364 08/16/2017 [facility] Height 152.4 cm 08/16/2017 [facility] BMI Calculated 58.71 08/16/2017 [facility] Weight 136.364 08/16/2017 [facility] Heart Rate 95 08/16/2017 [facility] Encounters Location Location Encounter Encounter Reason Attending ADM DC Stat us Source Details Type Number For Provider Date Date Visit [facility] [id number] Anthony 08/16 08/19 [facility] Procedures Procedure Code Date Perfomer Comments Source Spinal puncture, 47693 08/16/2017 [facility] therapeutic, for Medical drainage of [place] cerebrospinal fluid (by needle or catheter) section [id number] [facility] Gallbladder excision [id number] [facility] Assessment and Plan Assessment and Plan Date Source Extracted from:Title: Neurology Progress Note 08/19/2017 [facility] Author: Miguel A Valdez MD Date: 08/19/17 General Neurology Progress Note Subjective: Patient denies any new complains. No major overnight events. HPI: 42-year-old female with a history of HTN , CHF, trigeminal neuralgia and morbid obesity who [...] usea, vomiting, and a headache. A head C T was done at that time and showed [...] laying do wn, 10/10, throbbing in nature, accompan ied by blurry vision and not associated with [...] 24 Hr Tmax: 99.2F (37.33c) at 08/18 19:5 6 Vital Signs are the last 5 in the past 48 hours. Physical Exam: HEAD - Normocephalic and atraumatic LUNGS - Clear to auscultation, no rales or rhonchi CVS - Rate rhythm regular, no murmur, equal pulses bilateral ly ABDOMEN - Soft, non tender, with normal bowel sounds. No hep atosplenomegaly NEUROLOGY: Mental status: alert and oriented to person, time, and place . Speech/language: naming, repetition, com prehension and fluency intact, appropriately follows commands. Cranial nerves: pupils briskly reative t o light bilaterally, EOMI, visual darling grossly intact, tongue/uvula/palate midline with no apparent atrophy or fibrillations, facial sensation intact, no facial asymmetry. Motor: Tone is normal. Strength 5/5 in all extremities. No adventitious/abnormal movements. Sensation: grossly intact throughout. Coordination: mild dysmetria on [id number]. Reflexes: 2+ and symmetric throughout. Plantar response: flexor. Gait: deferred, fall risk. Labs: Labs (Last four charted values) WBC 7.8 (AUG 18) 8.2 (AUG 17) 8.8 (AUG 15) Hgb H 16.4 (NOV 0 5) 16.0 (AUG 17) 15.4 (AUG 15) Hct H 52.6 (NOV 0 5) H 52.0 (AUG 17) H 50.3 (AUG [...] (AUG 15) Glucose Random H 100 (AUG 05 ) H 104 (AUG 04) H 135 (AUG 15) Mg 2.4 (AUG [...] optic discs. 2. Bilateral narrowing of the transvers e sinuses with small filling defect likely represents archnoid granulations. Assessment: 42-year-old female with a history of HTN , CHF, trigeminal neuralgia, morbid obesity, and medication non-compliance who presents after an event of altered mental status in the setting of diffuse cerebral edema that improved after administratio n of steroids. Her history of headaches is more consistent with subacute idiopathic intracranial hypertension. LP with OP: 29 Plan: - Started Diamox 50 BID. - Echo pending. - Follow up with neurology, ophthalmology and NSGY as an out patient. -Needs to have 4L O2 as she desaturated to 88 % without O2 and saturated fine when she had 4L she was saturating >90%. Dispo: pending for home oxygen. Miguel A Valdez MD Neurology PGY-2 MSO [id number] Pager # [phone] Addendum by Grace Velazquez MD on 08/19/2017 23:16 Patient seen and examined by me personal ly on rounds. I agree with the history and physical exam documented in the resident's note. Case discussed with team and with the patient. I have also review ed Dr. Arango's note. I agree with the assessment and plan a s outlined. E/M billin; pseudotumor, hypoventilation syndrome Extracted from:Title: [facility] Neurology Author: Zhao Beard MD Date: 08/16/17 GENERAL NEUROLOGY HISTORY AND PHYSICAL Patient Name: Rocio Callahan Date of Admission: 08/16/17 General Neurology Attending: Dr. Leon Reason for Admission: Visiual changes concerning for Pseudot umor Cerebri HPI: 42-year-old female with a history of HTN , CHF, trigeminal neuralgia and morbid obesity who [...] usea, vomiting, and a headache. A head C T was done at that time and showed [...] laying do wn, 10/10, throbbing in nature, accompan ied by blurry vision and not associated with photophobia or phonophobia. Sitting up relieves her headache and improves her blurry vision. She has no prior history of headaches. In addition, she reports that about a month ago she stopped taking all her medications. REVIEW OF SYSTEMS: GEN - negative for fever, chills, weakness, weight ricardo nges, decreased appetite. HEENT- negative for trauma, changes in v ision/hearing, eye/nasal discharge, sore throat. RESP - negative for cough, wheezing, respiratory distr ess, shortness of breath. CV - negative for chest pain, palpitations, dizziness. GI/ - negative for abdominal pain, diarrhea, constipation, dysuria. MSK - negative for weakness, joint swelling, tenderness. NEURO - see HPI. SKIN - negative for rash, lumps, itching. HEMATOLOGIC - negative for easy bruising , transfusion reactions, excessive bleeding. Past Medical History: HTN, CHF, trigeminal neuralgia and mor bid obesity. Past Surgical History: cholecystectomy and sinus surgery. Home Medications: none. Allergies: NKDA. Family History: non-contributory. No fam carmita history of seizures, developmental delay, or neurological disorders. Social History: The patient lives at home and denies alc ohol use, tobacco use, or illicit drug use. Medications: Scheduled Meds (2): 08/16/17 8:00 chlorhexidine topical (chl orhexidine topical 0.12% liquid) 15 mL Swab Mouth [...] Time Meds (1): 08/16/17 1:58 (Discontinued) valproic ac id (valproic acid 100 mg/mL intravenous solution) 2,000 mg IVPB ONCE Continuous Infusions: None Allergies: NKDA. PHYSICAL EXAM: Vitals Tmp(F) Tmp(C) Ttype B P MAP Pulse RR SpO2 FIO2 ETCO2 08/16 06:18 97.5 36.39 oral 144/86 --- 104 20 97 4.0L/m --- 08/16 04:08 98.1 36.72 oral 148/76 --- 101 22 98 4.0L/m --- 08/16 02:29 ---- ---- ---- 1 46/88 --- 93 20 96 4.0L/m --- 08/15 23:00 97.8 36.56 oral 156/88 --- 94 19 96 4.0L/m --- 08/15 20:16 ---- ---- ---- - ---- --- --- -- 97 4.0L/m --- GENERAL: awake, alert, no acute distress. HEENT: normocephalic and atraumatic, moist mucous membranes. RESPIRATORY: no increased work of breathing. CARDIOVASCULAR: no murmur, equal pulses bilaterally. ABDOMEN: soft, non-distended. NEUROLOGIC EXAM: Mental status: alert and oriented to person, time, and place . Speech/language: naming, repetition, com prehension and fluency intact, appropriately follows commands. Cranial nerves: pupils briskly reative t o light bilaterally, EOMI, visual darling grossly intact, tongue/uvula/palate midline with no apparent atrophy or fibrillations, facial sensation intact, no facial asymmetry. Motor: Tone is normal. Strength 5/5 in all extremities. No adventitious/abnormal movements. Sensation: grossly intact throughout. Coordination: mild dysmetria on [id number]. Reflexes: 2+ and symmetric throughout. Plantar response: [...] 9 CRP 11.5 H 08/15 2140 [facility] HIV 4th GEN Negative 08/15 2134 ABO/Rh [...] ASSESSMENT: 42-year-old female with a history of HTN , CHF, trigeminal neuralgia, morbid obesity, and medication non-compliance who presents after an event of altered mental status in the setting of diffuse cerebral edema that improved after administratio n of steroids. Her history of headaches is [...] CHF and HTN in the setting of m edication non-compliance. - Brain MRI with and without contrast. - Consider LP when medically feasible, c annot be performed at this time due to cerebral edema. - Continue Dexamethasone and consider Diamox. - Diet: regular. - GI prophylaxis: No. - Mueller present: No. - Code status: Full. - Discharge disposition: pending. Zhao Villalba M.D. Child Neurology Fellow, PGY-4 Pager #: [phone] Neurology Attending The patient was seen and examined by me with the resident and I agree with the History/Exam documented. Anthony Leon MD Extracted from:Title: Ophthalmology Consultation Author: Eboni Alonzo MD Date: 08/16/17 CONSULTATION - OPHTHALMOLOGY PATIENT NAME: Rocio Callahan MR #: [id number] ROOM: ED Bed 16 REQUESTING TEAM/ATTENDING: Neurology [...] that 3 days ago, she started experiencing short ness of breath and increased swelling of the legs and she was taken to an OSH where she was treated for a CHF exacerbation. Yesterday, she became confused and sta rted having visual hallucinations, nause a, vomiting, and a headache. A head CT was done at that time and showed diffuse cerebral edema with concerns for impending tonsillar herniation. She was given a d ose of steroids which improved her menta l status. Per the family, the outside facility had planned to transfer the patient to another hospital for higher level of care, but the family left AMA and broug ht her to our ED. In the ED, a repeat he ad CT showed diffuse cerebral edema. She is [...] with p hotophobia or phonophobia. Sitting up re lieves her headache and improves her blurry vision. She has no prior history of headaches. In addition, she reports that about a month ago she stopped taking all her medications. When asked about felisha sadler whoosing noises/taking doxycycline or OCPs or accutane, [...] NEURO/MS The patient is AAOx3, no focal neurologi tamy or motor deficits, the patient was able to participate fully in the exam VISUAL ACUITY (WITHOUT CORRECTION), TESTED ON A NEAR CARD Right: 20/20 Left: 20/20 EXTRAOCULAR MOTILITY Right: Full Left: Full CONFRONTATION VISUAL FIELD Right: Full Left: Full COLOR SATURATION Patient had no decrease in red color intensity between eyes Right: Ish[place]ara Left: 1414 [place] PUPILS Right: 4mm to 3mm, No afferent pupillary defect noted Left: 4mm to 3mm, No afferent pupillary defect noted INTRAOCULAR PRESSURE Symmetric and normal to palpation both e yes. Right eye 21, left eye 15 using [...] tropicamide 1% @ _) OPTIC NERVE: Right: Hern[place], with blurred borders 360 degrees, grade 2 disc edema Left: [place], with blurred borders 360 degrees, grade 2 disc e chiquis C:D RATIO Right: 0.3 Left: 0.3 POSTERIOR [...] is recommended. Resident preliminary report by Dr. Giovanni Mora: : With compared to the brain [...] follow patient in house. Thank you for t he consult Thank you for the consult. Eboni Alonzo MD Ophthalmology, PGY-2 Attending Note: [facility] reviewed the pertinent imaging, and discussed the case with the resident physician. I agree with the assessment and plan as outlined above and based upon the documented history and physical examination. Please call with any questions or concerns. Gio Alvarez MD MSO# [id number] Attending Physician, Ophthalmology Plan of Care No Data Provided for This Section Social History Social History Date Source Social History TypeResponse 08/16/2017 [facility] Smoking Status Never smoker; Exposure to Tobacco Smoke None; Cigarette Smoking Last 365 Days No; Reg Smoking Cessation Counseling No Family History No Data Provided for This Section Advance Directives No Data Provided for This Section Functional Status No Data Provided for This Section
--- OUTSIDE RECORDS SUMMARY | 2020-06-23 21:18 | XMS REPORT | Continuity of Care Document ---
:1975 Author Organization [facility] t Address [address] [place] [address] Care Team Providers Name Role Phone Tigre Leon Attending Clinician Tigre Leon Admitting Clinician Problems Condition Condition Condition Status Onset Resolution Last Treating Co mments Source Name Details Category Date Date Treatment Clinician Date Candidiasi Candidiasi Problem Active M [place] s of skin s of Skin 8-08 da 00:00: Medical 00 Group Gynecologi Gynecologi Problem Active M at[place] c c 808 da examinatio Examinatio 00:00: Me dical n n 00 Group Screening Screening Problem Active [place] for for 8-08 da malignant Malignant 00:00: Medi tamy neoplasm Neoplasm 00 Group of breast of Breast Body mass Body Mass Problem Active [place] index 40+ Index 40+ 8-08 da - severely - Severely 00:00: Me dical obese Obese 00 Group Diabetes Diabetes Problem Active [place] mellitus Mellitus 3-01 da 00:00: Medical 00 Group SHORTNESS Diagnosis Active 2016-102017-08-29 Memoria OF BREATH/ 0-30 08:48:00 l AMS 00:00: Jairo SHORTNESS 00 OF BREATH/ AMS Active 08/12/2017 [facility] Jaw pain Problem Active 2017-08-22 Mem oria (finding) 07-03 02:17:41 l Jaw pain 00:00: Michael rojas (finding) 00 Active 07/03/2012 Problem 08/22/2017 Data migrated from [employer] on 03/12/15. [facility] Trigeminal Problem Active 2017-08-22 M emoria neuralgia 07-03 02:17:41 l (disorder) 00:00: Michael n Trigeminal 00 neuralgia (disorder) Active 07/03/2012 Problem 08/22/2017 Data migrated from [employer] on 03/12/15. [facility] Chronic Problem Active 2017-08-22 Jose nikki maxillary 06-11 02:17:41 l sinusitis Chronic 00:00: Herm diana (disorder) maxillary 00 sinusitis (disorder) Active 06/11/2012 Problem 08/22/2017 Data migrated from [employer] on 03/12/15. [facility] Cough Problem Active 2017-08-22 Memor ia (finding) 06-11 02:17:41 l Cough 00:00: Norman (finding) 00 Active 06/11/2012 Problem 08/22/2017 Data migrated from [employer] on 03/12/15. [facility] Patient Problem Active 2017-08-22 Jose nikki non-compli 06-11 02:17:41 l ance - Patient 00:00: Jairo general non-compli 00 (context-d ance - ependent general category) (context-d ependent category) Active 06/11/2012 Problem 08/22/2017 Data migrated from [employer] on 03/12/15. [facility] Contracept Problem Active 2017-08-22 M emoria ion care 06-03 02:17:41 l management 00:00: Michael n (procedure Contracept 00 ) ion care management (procedure ) Active 06/03/2012 Problem 08/22/2017 Data migrated from [employer] on 03/12/15. [facility] Morbid Problem Active 2017-08-22 Memor ia obesity 06-03 02:17:41 l (disorder) Morbid 00:00: Herm diana obesity 00 (disorder) Active 06/03/2012 Problem 08/22/2017 Data migrated from [employer] on 03/12/15. 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 [facility] Facial Facial Problem Active [place] neuralgia [facility]gia [facility] Congestive Problem Resolve 2017-08-22 Memoria heart d 02:17:41 l failure Jairo (disorder) Congestive heart failure (disorder) Resolved Problem 08/22/2017 [facility] Hypertensi Problem Resolve 2017-08-22 Memoria ve d 02:17:41 l disorder, Norman systemic Hypertensi arterial ve (disorder) disorder, systemic arterial (disorder) Resolved Problem 08/22/2017 [facility] CEREBRAL Diagnosis Active 2017-08-29 M emoria EDEMA 08:48:00 l CEREBRAL Michael n EDEMA Active [facility] Allergies, Adverse Reactions, Alerts Allergy Allergy Status Severity Reaction(s) Onset Inactive Treating Comm ents Source Name Type Date Date Clinician Iodine Allergy Active [place] [facility] Social History Smoking Status Start Date Stop Date Source Former Smoker [facility] Social History [facility] Medications Ordered Filled Start Stop Current Ordering Indication Dosage Frequency Signature Comments Components Source Medication Medication Date Date Medication? Clinician (SIG) Name Name acetaZOLAMI 2016-10 Yes 500 mg = 2 Memoria DE 250 mg 1-04 tab, PO, l oral tablet 19:00: BID, # [id number] Jairo 00 tab, 6 Refill(s), Pharmacy: [facility] #[id number] docusate-se 2016-10 Yes 1 tab, PO, Memoria nna 50 1-04 Daily, 0 l mg-8.6 mg 18:07: Refill(s) Her snider oral tablet 00 chlorhexidi 2016-10 Yes 0.018 gm = Memoria ne topical -04 15 mL, l 0.12% 18:07: Swab Jairo liquid 00 Mouth, Q4H, 0 Refill(s) acetaZOLAMI 2016-10 No 500 mg = 2 Memoria DE 250 mg 1-04 tab, PO, l oral tablet 18:07: BID, 0 Herm diana 00 Refill(s) acetaminoph 2016-10 Yes 100.4 F, M emoria en 325 mg 1-04 0 l oral tablet 18:07: Refill(s) H ermann 00 influenza 2016-10 No Notes: Memori a virus -04 (Same as: l vaccine, 18:00: Fluzone Michael n inactivated 00 Quadrivale nt, Fluarix Quadrivale nt) For 3 years of age and older (0.5 mL IM) heparin 2016-10 No Notes: Memoria 5000 04 porcine l units/mL 05:00: heparin Michael n injectable 00 solution docusate-se 2016-10 No Notes: Jose nikki nna 50 10-17 (Same as l mg-8.6 mg 00:45: Senokot-S) He rmann oral tablet 00 Equiv. to Brit-Colac e. acetaminoph 2016-10 No Notes: Do M emoria en 10-16 not exceed l 21:27: 4 gm/day. Norman 00 (Same as: Tylenol) pneumococca 2016-10 No Notes: Jose nikki l 23-valent 10-16 (Same as: l vaccine 16:42: Pneumovax Deanna nn 00 23) Refrigerat e Diamox 2016-10 No Notes: Memoria 10-16 (Same as: l 16:24: Diamox) Norman 00 Diamox 2016-10 No 250 mg, Memoria 10-16 Route: PO, l 15:11: Drug form: Jairo 00 TAB, Daily, Dosing Weight 136.364, kg, Start date: 08/16/17 10:11:00 CDT, Duration: 30 day, Stop date: 09/15/17 9:00:00 [employer] Saline 2016-10 No Notes: Memoria Flush 0.9% -03 Same as: l 14:00: BD Norman 00 Posiflush Sterile hydrochloro 2016-10 No 1 tab, PO, Memoria thiazide-li 1-03 Daily, 0 l sinopril 13:51: Refill(s) Herm diana 12.5 mg-10 00 mg oral tablet chlorhexidi 2016-10 No Notes: Jose nikki ne topical 10-16 (Same As: l 0.12% 13:00: Peridex) Norman liquid 00 Insulin 2016-10 No 60 Memoria regular 1-03 units) l 11:38: WASTE: F/P Jairo - Black; E - Municipal Trash Bin Stable for 28 days at room temperatur e Expires in days from ____Date Saline 2016-10 No Notes: Memoria Flush 0.9% 1-03 Same as: l 11:38: BD Norman 00 Posiflush Sterile valproic 2017-1 No 2,000 mg, Jose nikki acid 100 -03 Route: l mg/mL 06:58: IVPB, Jairo intravenous 00 ONCE, solution Dosing Weight 136.364, kg, Priority: NOW, Start date: 08/16/17 1:58:00 CDT, Stop date: 08/16/17 1:58:00 CDT fluconazole fluconazole No 1 Q1D fluconazol [place] 100 mg 100 mg e 100 mg da tablet Take tablet Take tablet Medical 1 tablet 1 tablet Take 1 Group every day every day tablet by oral by oral every day route for 3 route for 3 by oral days. days. route for 3 days. loratadine loratadine No 1 Q1D loratadine [place] 10 mg 10 mg 10 mg da tablet Take tablet Take tablet Medical 1 tablet 1 tablet Take 1 Group every day every day tablet by oral by oral every day route. route. by oral route. metformin metformin No 1 BID metformin [place] 500 mg 500 mg 500 mg da tablet Take tablet Take tablet Medical 1 tablet 1 tablet Take 1 Group twice a day twice a day tablet by oral by oral twice a route. route. day by oral route. nystatin nystatin No nystatin [place] 100,000 100,000 100,000 da unit/gram unit/gram unit/gram Medical topical topical topical Group cream APPLY cream APPLY cream TO THE TO THE APPLY TO AFFECTED AFFECTED THE AREA(S) BY AREA(S) BY AFFECTED TOPICAL TOPICAL AREA(S) BY ROUTE 2 ROUTE 2 TOPICAL TIMES PER TIMES PER ROUTE 2 DAY DAY TIMES PER DAY Vital Signs Vital Name Observation Time Observation Value Comments Source BP Diastolic 2019-05-21 00:00:00 88 [facility] Height 2019-05-21 00:00:00 62 [in_i] [facility] BMI (Body Mass 2019-05-21 00:00:00 51.6 kg/m2 [facility] Medical Index) Group BP Systolic 2019-05-21 00:00:00 133 [facility]Hg[facility] Body Weight 2019-05-21 00:00:00 282.3 [lb_av] [facility] BP Diastolic 2018-11-24 00:00:00 74 mm[Hg] [facility] Height 2018-11-24 00:00:00 62 [in_i] [facility] BMI (Body Mass 2018-11-24 00:00:00 52 kg/m2 [facility] [employer] [facility] Medical Index) Group BP Systolic 2018-11-24 00:00:00 120 mm[Hg] [facility] Body Weight 2018-11-24 00:00:00 4551 [oz_av] [facility] Temperature Oral (F) 2017-08-19 18:33:00 98.2 F [facility] Respitory Rate 2017-08-19 18:33:00 Memori al Jairo Systolic (mm Hg) 2017-08-19 18:33:00 Jose rial Jairo Diastolic (mm Hg) 2017-08-19 18:33:00 Mem orial Jairo Systolic (mm Hg) 2017-08-19 13:31:00 Jose rial Norman Diastolic (mm Hg) 2017-08-19 13:31:00 Mem orial Jairo Temperature Oral (F) 2017-08-19 13:31:00 98.9 F [facility] Norman Respitory Rate 2017-08-19 13:31:00 Memori al Norman Respitory Rate 2017-08-19 10:00:00 Memori al Norman Systolic (mm Hg) 2017-08-19 10:00:00 Jose rial Norman Diastolic (mm Hg) 2017-08-19 10:00:00 Mem orial Jairo Temperature Oral (F) 2017-08-19 10:00:00 [facility] Calculated 2017-08-16 16:23:00 Memori al Norman Height 2017-08-16 16:23:00 152.4 cm [facility] Jairo Weight 2017-08-16 16:23:00 [facility] Jairo Height 2017-08-16 01:08:00 [facility].4 [facility] BMI Calculated 2017-08-16 01:08:00 Memori al Norman Weight 2017-08-16 01:08:00 [facility] Heart Rate 2017-08-16 01:08:00 [facility] Procedures Procedure Date / Time Performing Clinician Source Performed unlisted imaging order 2019-05-21 00:00:00 [facility] Spinal puncture, 2017-08-16 22:18:00 [facility], for drainage of cerebrospinal fluid (by needle or catheter) Cholecystectomy 2014-03-15 00:00:00 [facility] Bilateral Tubal Ligation 2000-10-14 00:00:00 [facility] Caes[facility] Section [facility] section [facility] Michael Gallbladder excision [facility] Plan of Care Planned Activity Planned Date Details Comments Source Diagnostic Test 2019-05-21 CT + NG DNA, PCR, [facility] Pending 00:00:00 cervical [code = Group CT + NG DNA, PCR, cervical] Diagnostic Test 2019-05-21 urinalysis, [facility] P[facility] 00:00:00 dipstick [code = Group urinalysis, dipstick] Diagnostic Test 2019-05-21 pap, IG + HR HPV [facility] [facility] Pending 00:00:00 [code = pap, IG + Group HR HPV] Encounters Start End Encounter Admission Attending Care Care Encounter Source Date/Time Date/Time Type Type Clinicians Facility Department ID 2019-05-21 2019-05-21 Deidre Brown [facility] [place] - [id number] [place] 00:00:00 00:00:00 [facility] saadia Herrera WHNP: [address] [address] , Ph. [phone] 2018-11-24 2018-11-24 Fatimah [facility] [place] - [id number] M atagor 00:00:00 00:00:00 [facility] saadia Laurent SPRAY II PAINTER: [address] [address] , Ph. 2017-08-15 2017-08-19 Outpatient [facility], [facility] [id number] 20:03:00 15:40:00 Anthony 00 Tigre Results Test Description Test Time Test Comments Results Result Comments Source Urinalysis macro (dipstick) panel - Urine 2019-05-21 14:42:2 3 Test Item Value Reference Range Interpretation Comme nts Leukocytes (test code = Leukocytes) Negative Nitrite (test code = Nitrite) negative Urobilinogen (test code = Urobilinogen) .2 Protein (test code = Protein) 30 pH (test code = pH) 6.0 Blood (test code = Blood) Moderate Specific [place] (test code = Specific [place]) 1.030 Ketone (test code = Ketone) Trace Bilirubin (test code = Bilirubin) Negative Glucose (test code = Glucose) Negative Appearance (test code = Appearance) Clear Color (test code = Color) Yellow [facility] GroupCHEM [id number] 05:09:004.9[facility] YSZOQ6833-57-44 05:09:002.4[facility]annCHEM JJCYQ2978-36-03 05:09:0017 [facility]annCHE[facility] CTFIK9385-32-54 05:09:000.69[facility]annCHEM PANEL 2017-08-18 05:09:99220Xjdmhzno HermannCHEM RGPSY2379-93-35 05:09:004.1[facility]annCHE[facility] EZMJG6282-53-72 05:09:80451Wblbiigc HermannCHEM HCBDJ5331-07-60 05:09:84080Lxwfvirn HermannCHE[facility] ASRGX2961-61-01 05:09:0030[facility]annCHEM YDZVN1282-41-01 05:09:009.1[facility]annCHEM VRTKT5369-51-99 05:09:03093 [facility]annCHE[facility] YUPTQ4176-04-18 05:09:0011.1[facility] HermannHEMATOLOGY 2017-08-18 05:09:0076.7[facility] GcyrdspPDWSHLJTUM8284-67-19 05:09:005.4[facility] MpmsdtzEAWKWWLZBF9128-28-63 05:09:0016.7[facility]orial XwnxzrsFYDLRPLJMW5721-61-38 05:09:000.6[facility] KcoakjtZXIXNCXQKV9938-43-61 05:09:000.6[facility] Jairo CGESQJTAFF1479-10-55 05:09:005.9[facility] VbsesmnFYIBFHFOYE4880-50-47 05:09:000.4 Memorial CzcmfnsZGLRAIRHJQ9562-37-09 05:09:001.3[facility] HermannHEMATOLOGY 2017-08-18 05:09:005.88[facility] LkpmcovMUDYUSROKS6268-33-25 05:09:007.8[facility] ZteodabNFXCLZSOAK9697-36-17 05:09:0016.4[facility] UpybcvhFTXNGWDONG1670-17-90 05:09:0031.3[facility] AszbbweRIGGXAQICQ7904-98-71 05:09:00 Test Item Value Reference Range Interpretation Comments MCH (test code = MCH) 28.0 pg 27.0-31.0 Memorial LjwcqfyNYOMXZIJQP9281-15-07 05:09:0089.3[facility] HermannHEMATOLOGY 2017-08-18 05:09:0052.6[facility] NanqmdqKUGITJWDWK9873-69-68 05:09:72313Xguynfno KgodpkbQNJYIGOYTW7682-44-60 05:09:0017.7[facility]orial BkoyzcdLNCQFKUZJI4559-44-23 05:09:008.9[facility] HermannBACTERIAL - CXAZPETN5952-92-58 18:42:00Negative (08/17/17 1:42 PM)[facility]annCHEM EUTXM3763-53-31 05:40:76710Yhwbzevn HermannCHEM XSPNH7057-44-56 05:40:77567Qmfhhgia HermannCHEM EDIZE9010-62-32 05:40:0032[facility]annCHEM NZJYL8496-14-34 05:40:009.[facility] HermannCHEM GKBMT8969-42-13 05:40:61192Wbehszws HermannCHEM GOUSE7364-97-17 05:40:46177 [facility]annCHE[facility] ZJCVV7819-53-86 05:40:004.1[facility]annCHEM PANEL 2017-08-17 05:40:0017[facility] HermannCHEM GPPWH9343-46-26 05:40:000.60[facility]annCHEM BMKSG3645-84-23 05:40:009.1[facility]annCHEM OUHLO2961-67-43 05:40:002.4[facility]annCHEM VTXYF3052-45-46 05:40:003.3[facility] Jairo OXKVSMUBPQ3757-66-09 05:40:0090.9[facility]orial PcfjfjjPTDTNBFPTE7099-32-10 05:40:00 Test Item Value Reference Range Interpretation Comments MCH (test code = MCH) 28.0 pg 27.0-31.0 Memorial JhbgtnwQBHGFQAHYE9201-97-88 05:40:0030.8[facility]annHEMATOLOGY 2017-08-17 05:40:0018.0[facility] WpglzvmBBFGOVZGYQ1070-24-66 05:40:53863Euuhlzrf ZfbwuzwUVMZRHPJTF1225-64-26 05:40:009.1[facility] EjdxnpfRGGEFQTVWL7575-49-16 05:40:008.2[facility] ZebjzwiNPKNCHFPIL1271-82-45 05:40:005.72[facility]airo MIDJXDSLDT6004-03-73 05:40:0016.0[facility] GxgycxzRSRFZMRXGE6105-73-16 05:40:00 52.0[facility]orial BcyjhupMLYJPQCUWK9673-46-64 05:40:006.2[facility] HermannHEMATOLOGY 2017-08-17 05:40:000.5[facility] AftzcgrMRAQLCDIGC8429-19-40 05:40:001.4[facility] HbcnacuCPRYSFHELP3063-93-14 05:40:0076.1[facility]orial GzcjkwzWPIPGRQIHF0043-20-39 05:40:000.4[facility]orial QfwdhgkFVOYUCQQIU7450-74-35 05:40:0016.9[facility] Norman GXLXQHXOSK1506-26-79 05:40:000.5[facility] HmhhbkeHQLZAETQCM0064-27-45 05:40:006.1 [facility] HermannBACTERIAL - KLAYPGTK4794-83-17 22:00:00Negative (08/16/17 5:00 PM)[facility] HermannBODY AWVDRF3969-44-47 22:00:0036[facility]annBODY FLUIDS 2017-08-16 22:00:00Clear (08/16/17 5:00 PM)[facility]ann[facility] TZDWQN8000-75-27 22:00:00Colorless (08/16/17 5:00 PM)[facility]annB[facility] RUQCLT4976-11-50 22:00:002[facility]annB[facility] OBTICW0801-22-35 22:00:001[facility]annB[facility] DANUFP4352-51-38 22:00:00Colorless (08/16/17 5:00 PM)[facility]ann[facility] FLUIDS 2017-08-16 22:00:00 Test Item Value Reference Range Interpretation Comments Tube Num CSF (test code = Tube Num CSF) 4 1 [facility]ann[facility] TOOOMP1694-28-26 22:00:0077[facility]annBODY FLUIDS 2017-08-16 22:00:001[facility]annBODY JKYUAR6318-39-76 22:00:003[facility]annB[facility] PFSWLO3031-56-36 22:00:00Colorless (08/16/17 5:00 PM)[facility] BODY ROQPIK6402-47-03 22:00:00Clear (08/16/17 5:00 PM)[facility]annB[facility] FLUIDS 2017-08-16 22:00:00Colorless (08/16/17 5:00 PM)[facility]annB[facility] FLUIDS 2017-08-16 22:00:00 Test Item Value Reference Range Interpretation Comments Tube Num CSF (test code = Tube Num CSF) 1 1 [facility] HermannFUNGAL - JGXPPMVH8717-15-12 22:00:00Negative (08/16/17 5:00 PM) [facility] AND FWOXV7922-88-82 03:31:00Negative (08/15/17 10:31 PM) [facility] AWITB7817-77-37 03:31:00Negative (08/15/17 10:31 PM) [facility] UVKRD0911-52-81 03:31:001.0[facility] AND YFBGA9193-71-45 03:31:00Negative *NA*(08/15/17 10:31 PM)[facility] AND MXWMZ8557-92-00 03:31:00Large *ABN*(08/15/17 10:31 PM)[facility] IGIZO7071-17-50 03:31:00Negative (08/15/17 10:31 PM)[facility] AND KJLKV5547-09-48 03:31:00Negative *NA*(08/15/17 10:31 PM)[facility] TYXSH4575-63-83 03:31:00 Test Item Value Reference Range Interpretation Comments UA Spec Grav (test code = UA Spec 1.010 1 Grav) [facility] VBCTB3770-05-12 03:31:00 Test Item Value Reference Range Interpretation Comments UA pH (test code = UA pH) 8.5 1 5.0-8.0 [facility] [id number] 03:31:00Cloudy *ABN*(08/15/17 10:31 PM) [facility] HJMKL4636-31-32 03:31:00Trace *ABN*(08/15/17 10:31 PM) [facility] CPANB0651-61-97 03:31:00Yellow *NA*(08/15/17 10:31 PM) [facility] AXDAE0951-72-95 03:31:00None Seen (08/15/17 10:31 PM) [facility] LRDT5630-77-75 03:31:00Negative (08/15/17 10:31 PM)[facility] HermannCARDIAC YWRYXFB7645-75-54 03:05:0038[facility] HermannCARDIAC ENZYMES 2017-08-16 03:05:000.35[facility] LhdtzrpOMYTHGNGON8086-34-19 03:05:009[facility] IrsupsiOBAWCZHKCA7226-25-41 03:05:0011.5[facility] OpoxzjnVDOPECPDPC3766-82-55 02:40:00Negative *NA*(08/15/17 9:40 PM)[facility] HermannBLOOD BANK RESULTS 2017-08-16 02:34:00Negative (08/15/17 9:34 PM)[facility] HermannCHEM PANEL 2017-08-16 02:34:35496Zqdzfapg HermannCHEM BPNCL8922-98-56 02:34:44726Fymlafwr HermannCHEM ZKKUD7731-90-35 02:34:005.3[facility] HermannCHEM ZODYG7521-03-49 02:34:008.2[facility] HermannCHEM PVRPO7981-10-03 02:34:52379Upouftss HermannCHEM ACHMZ6847-81-31 02:34:0036[facility] HermannCHEM TLAYO1323-43-03 02:34:0011 [facility]annCHEM DPWWH4393-32-76 02:34:000.49[facility] HermannCHEM PANEL 2017-08-16 02:34:51064Kpgjnxfr HermannCHEM LSCLN8612-03-86 02:34:004.3[facility] LuupzllUECDACFPCE7217-34-59 02:34:000.2[facility] DuhsbltKEWQBJTODH0063-35-87 02:34:001+ *ABN*(08/15/17 9:34 PM)[facility] GyiskatPIGWFLGGLL9176-34-13 02:34:001+ (08/15/17 9:34 PM)[facility] UnaijhnOLVAUCIBQQ9549-26-96 02:34:005.8[facility] VfnefblXGXXZVNXGX1466-79-68 02:34:001.7[facility]orial FctkggeOLVATGIBJY4107-66-47 02:34:000.5[facility] HoreclaQJVPMTEBEI9927-79-54 02:34:000.3[facility] Norman BFSZQMKZMZ8242-89-62 02:34:008.1[facility] YboegeePIUSPFXJDY2651-21-62 02:34:00 Normal (08/15/17 9:34 PM)[facility] BhtvcafECLHQCUMIX9645-23-63 02:34:0092.2 Memorial TqqvvsjJPWRLRWUUX8507-92-02 02:34:00 Test Item Value Reference Range Interpretation Comments PTT (test code = PTT) 29.9 s 22.9-35.8 Memorial KlumjsvSXHNOLBKKC3162-90-28 02:34:00 Test Item Value Reference Range Interpretation Comments PT (test code = PT) 13.6 s 12.0-14.7 Memorial AylijllXWCJPUPXWG9228-35-61 02:34:001.04[facility] HermannHEMATOLOGY 2017-08-16 02:34:0015.4[facility] QebuusbGZMQMCKCIG4433-61-53 02:34:0050.3[facility] AcptabeTYYUIDYBWG2072-22-00 02:34:0089.4[facility] SgryyleFPVCAJDDTC7373-10-38 02:34:00 Test Item Value Reference Range Interpretation Comments MCH (test code = MCH) 27.4 pg 27.0-31.0 [facility] KivdfjcVUKOMPCHYV9872-53-78 02:34:0017.6[facility] HermannHEMATOLOGY 2017-08-16 02:34:05444Yffyftbp KoepjxlCQZTIZDLJJ5209-27-83 02:34:0030.7[facility] HbmdujuDCNWJAEEDK5716-83-43 02:34:008.8[facility] MzcgvgwUTGUUTGSVS3919-22-25 02:34:005.63[facility] AhjjllyULGUFBKKCE4414-59-43 02:34:008.3[facility] Jairo
[2020-06-23 22:24] LABS: Absolute Lymphocytes (CBC) 1.2 K/uL (0.7-4.9); Basophils % 0.8 % (0-1.3); Hematocrit 49.9 % (36.0-45.0); Lymphocytes % 15.7 % (15.3-44.8); MPV 9.4 fL (7.6-11.3); Protime INR 1.05; RBC Red Blood Cell Count 5.75 M/uL (3.86-4.86)
[2020-06-23 22:47] LABS: ALT/SGPT 18 U/L (12-78); AST/SGOT 13 U/L (15-37); Albumin 3.4 g/dL (3.4-5.0); Alkaline Phosphatase 110 U/L (45-117); BUN Blood Urea Nitrogen 10 mg/dL (7-18); Bicarbonate 38 mmol/L (21-32); Bilirubin Direct 0.1 mg/dL (0-0.2); Bilirubin Total 0.5 mg/dL (0.2-1.0); Glucose Level 143 mg/dL (74-106); Magnesium 2.1 mg/dL (1.8-2.4); NT PRO-BNP 49 pg/mL (<125); Protein, Total 7.9 g/dL (6.4-8.2); Sodium Level 143 mmol/L (136-145); Troponin (Emerg Dept Use Only) < 0.02 ng/mL (0.0-0.045)
[2020-06-23] MEDS ORDERED: METHYLPREDNISOLONE 125 MG INJ ONE (23:42)
[2020-06-23] MEDS ORDERED: DIPHENHYDRAMINE 50 MG/ML VIAL ONE (23:42)
[2020-06-23] MEDS ORDERED: FAMOTIDINE 20 MG/2 ML VIAL IV ONE (23:42)
[2020-06-24 00:10] LABS: Arterial Blood Carboxyhemoglob 2.3 % (0-1.5); Blood Gas Oxyhemoglobin 80.2 % (94-97); Blood O2 Saturation 82.7 % (92-98.5)
[2020-06-24] MEDS ORDERED: FUROSEMIDE 40 MG/4 ML VIAL ONE (00:56)
--- NOTE | 2020-06-24 02:31 | EDPHYS ---
Physician Documentation [facility] Name: Rocio Callahan Age: 45 yrs Sex: Female : 1975 Arrival Date: 06/23/2020 Time: 21:18 Bed 20 Private MD: ED Physician Evangelista Bowen HPI: 06/23 21:21 This 45 yrs old Female presents to ER via Ambulatory with complaints of low jmm oxygen. 21:21 The patient has shortness of breath at rest, with light activity. Onset: The jmm symptoms/episode began/occurred gradually. The patient's shortness of breath is aggravated by exertion, light activity. Associated signs and symptoms: Pertinent negatives: chest pain. This is a 45 year old female with a history fo SM, COPD, ARDS, that presents to the ED with complaints of shortness of breath worsening over the past few days. Patient states she does not have her home oxygen or diuretics. Denies chest pain. . 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 - Social history:: Smoking status: Patient denies any tobacco usage or history of. ROS: 21:21 Constitutional: Negative for fever, chills, and weight loss, Cardiovascular: Negative jmm for chest pain, palpitations, and edema. 21:21 Respiratory: Positive for shortness of breath. 21:21 All other systems are negative. Exam: 21:21 Constitutional: This is a well developed, well nourished patient who is awake, alert, jmm and in no acute distress. Head/Face: atraumatic. Eyes: EOMI, no conjunctival erythema appreciated ENT: Moist Mucus Membranes Neck: Trachea midline, Supple Chest/axilla: Normal chest wall appearance and motion. 21:21 Respiratory: Normal respirations, no respiratory distress appreciated Abdomen/GI: Non distended, soft Back: Normal ROM Skin: General appearance color normal MS/ Extremity: Moves all extremities, no obvious deformities appreciated, no edema noted to the lower extremities Neuro: Awake and alert, normal gait 21:21 Cardiovascular: Rate: normal, Rhythm: regular, Pulses: no pulse deficits are appreciated. Vital Signs: 21:28 Pulse Ox 82% on R/A; sg 21:29 BP 174 / 92; Pulse 102; Resp 22; Temp 97.7; Pulse Ox 100% on 4 lpm NC; sg 22:39 BP 158 / 105; Pulse 96; Resp 18; Pulse Ox 100% on 4 lpm NC; mg2 23:43 BP 163 / 90; Pulse 82; Resp 18; Pulse Ox 100% on 4 lpm NC; [facility] 06/24 02:07 BP 163 / 108; Pulse 86; Resp 18; Pulse Ox 96% on 4 lpm NC; mg2 04:26 BP 138 / 83; Pulse 82; Resp 18; Temp 97; Pulse Ox 95% on 2 lpm NC; [facility] 06/23 21:28 pt placed to o2 via NC sg MDM: 21:51 Patient medically screened. [facility] 06/24 00:51 Data reviewed: vital signs, nurses notes. Transition of care: After a detail discussion [facility] of the patient's case, care is transferred to Evangelista Bowen MD. ED course: I discussed the patient with Viral Padilla and Dr. Bowen whom will reevaluation. 06/23 21:52 Order name: Basic Metabolic Panel; Complete Time: 22:47 [facility] 06/23 21:52 Order name: CBC with Diff; Complete Time: 22:33 [facility] 06/23 21:52 Order name: LFT's; Complete Time: 22:47 [facility] 06/23 21:52 Order name: Magnesium; Complete Time: 22:47 [facility] 06/23 21:52 Order name: NT PRO-BNP; Complete Time: 22:47 [facility] 06/23 21:52 Order name: PT-INR; Complete Time: 22:33 [facility] 06/23 21:52 Order name: Troponin (emerg Dept Use Only); Complete Time: 22:47 [facility] 06/23 23:50 Order name: ABG; Complete Time: 00:27 [facility] 06/24 02:35 Order name: COVID-19 [facility] 06/24 03:17 Order name: Urinalysis [facility] 06/24 03:17 Order name: Basic Metabolic Panel [facility] 06/24 03:17 Order name: Basic Metabolic Panel [facility] 06/24 03:17 Order name: CBC with Automated Diff [facility] 06/24 03:17 Order name: CBC with Automated Diff [facility] 06/23 21:52 Order name: XRAY Chest (1 view) [facility] 06/23 21:52 Order name: EKG; Complete Time: 21:53 [facility] 06/23 21:52 Order name: Cardiac monitoring; Complete Time: 22:12 [facility] 06/23 21:52 Order name: EKG - Nurse/Tech; Complete Time: 22:13 [facility] 06/23 21:52 Order name: IV Saline Lock; Complete Time: 22:13 [facility] 06/23 21:52 Order name: Labs collected and sent; Complete Time: 22:13 [facility] 06/23 21:52 Order name: O2 Per Protocol; Complete Time: 22:13 [facility] 06/23 21:52 Order name: O2 Sat Monitoring; Complete Time: 22:13 [facility] 06/24 03:17 Order name: Consistent Carb (ADA) [address] [facility] 06/24 03:17 Order name: Magnesium [facility] 06/24 03:17 Order name: Magnesium [facility] 06/24 03:21 Order name: Hemoglobin A1c EDUT Administered Medications: 06/23 23:38 Drug: SOLU-Medrol 125 mg Route: IVP; Site: right forearm; mg2 06/24 02:07 Follow up: Response: No adverse reaction mg2 06/23 23:38 Drug: Pepcid 20 mg Route: IVP; Site: right forearm; mg2 06/24 02:07 Follow up: Response: No adverse reaction mg2 06/23 23:38 Drug: diphenhydrAMINE 50 mg Route: IVP; Site: right forearm; mg2 06/24 02:07 Follow up: Response: No adverse reaction mg2 00:51 Drug: Lasix 40 mg Route: IVP; Site: right forearm; mg2 02:07 Follow up: Response: No adverse reaction mg2 Disposition: 05:50 Co-signature as Attending Physician, Evangelista Bowen MD. [email or web address] Disposition: 06/24/20 02:30 Hospitalization ordered by Francisco Blackburn for Observation. Preliminary diagnosis is CHF Exacerbation. - Bed requested for Telemetry/MedSurg (observation). - Status is Observation. mg2 - Condition is Stable. - Problem is an acute exacerbation. - Symptoms have improved. Signatures: Dispatcher [employer] EDMS Swetha Davalos RN RN Maynor Disla RN RN sg Mickail, Joel, PA PA jmm Gardose, Michele, RN RN mg2 Evangelista Bowen MD MD mh7 Corrections: (The following items were deleted from the chart) 04:26 02:30 Hospitalization Ordered by Francisco Blackburn for Observation. Preliminary diagnosis mw is CHF Exacerbation. Bed requested for Telemetry/MedSurg (observation). Status is Observation. Condition is Stable. Problem is an acute exacerbation. Symptoms have improved. 7 04:35 04:26 06/24/2020 02:30 Hospitalization Ordered by Francisco Blackburn for Observation. mw Preliminary diagnosis is CHF Exacerbation. Bed requested for Telemetry/MedSurg (observation). Status is Observation. Condition is Stable. Problem is an acute exacerbation. Symptoms have improved. mw 04:58 04:35 06/24/2020 02:30 Hospitalization Ordered by Francisco Blackburn for Observation. mg2 Preliminary diagnosis is CHF Exacerbation. Bed requested for Telemetry/MedSurg (observation). Status is Observation. Condition is Stable. Problem is an acute exacerbation. Symptoms have improved. mw
--- NOTE | 2020-06-24 02:31 | ER ---
Nurse's Notes [facility] Name: Rocio Callahan Age: 45 yrs Sex: Female : 1975 Arrival Date: 06/23/2020 Time: 21:18 Bed 20 Private MD: Diagnosis: CHF Exacerbation Presentation: 06/23 21:29 Chief complaint: Patient states: Im from [place], I came down here for to be seen sg by the providers here, pt states I have been out of my medications to control fluids, and I dont really know what they diagnosed me with when I was here last but they did put me on o2 and I had been feeling better so I weaned myself off of it, but due to insurance changes I have been out of my medications and now Im not feeling well again. Denies fever/chills, denies N/V/D at this time. Coronavirus screen: Client denies travel out of the [place] in the last 14 days. difficulty breathing, shortness of breath, Client presents with at least one sign or symptom that may indicate coronavirus-19. Standard/surgical mask placed on the client. Provider contacted for isolation considerations. Ebola Screen: Patient negative for fever greater than or equal to 101.5 degrees Fahrenheit, and additional compatible Ebola Virus Disease symptoms Patient denies exposure to infectious person. Patient denies travel to an Ebola-affected area in the 21 days before illness onset. No symptoms or risks identified at this time. Initial Sepsis Screen: Does the patient meet any 2 criteria? No. Patient's initial sepsis screen is negative. Does the patient have a suspected source of infection? No. Patient's initial sepsis screen is negative. Risk Assessment: Do you want to hurt yourself or someone else? Patient reports no desire to harm self or others. Onset of symptoms was June 23, 2020. Care prior to arrival: None. Transition of care: patient was not received from another setting of care. 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 - Social history:: Smoking status: Patient denies any tobacco usage or history of. Screenin:23 Abuse screen: Denies threats or abuse. Denies injuries from another. Nutritional mg2 screening: No deficits noted. Tuberculosis screening: No symptoms or risk factors identified. Fall Risk IV access (20 points). Assessment: 22:22 General: Appears in no apparent distress. comfortable, Behavior is calm, cooperative. mg2 Pain: Denies pain. Neuro: Level of Consciousness is awake, alert, obeys commands, Oriented to person, place, time, situation. Cardiovascular: Capillary refill < 3 seconds Patient's skin is warm and dry. Respiratory: Reports shortness of breath at rest Airway is patent Respiratory effort is even, unlabored, Respiratory pattern is regular, symmetrical. GI: No signs and/or symptoms were reported involving the gastrointestinal system. : No signs and/or symptoms were reported regarding the genitourinary system. EENT: No signs and/or symptoms were reported regarding the EENT system. Derm: Skin is intact, is healthy with good turgor, Skin is pink, warm \T\ dry. normal. Musculoskeletal: Circulation, motion, and sensation intact. Capillary refill < 3 seconds. 23:31 Reassessment: Patient appears in no apparent distress at this time. this pt reports sg feeling anxious and that was confused because the PA had told her there were no records of a previous visit, the records have been found the provider has spoken with the pt, pt requesting her mother be with her at the bedside so she can discuss her POC and possible admission, this pt mother has been allowed at the bedside for the pt at this time. 23:43 Reassessment: Patient appears in no apparent distress at this time. Patient and/or mg2 family updated on plan of care and expected duration. Pain level reassessed. Patient is alert, oriented x 3, equal unlabored respirations, skin warm/dry/pink. 06/24 02:08 Reassessment: patient not in distress. she urinated in the bathroom 4 times after mg2 receiving lasix. 03:30 Reassessment: Patient appears in no apparent distress at this time. Patient and/or mg2 family updated on plan of care and expected duration. Pain level reassessed. Patient is alert, oriented x 3, equal unlabored respirations, skin warm/dry/pink. informed and agreed about the plan for hospitalization. 04:27 Reassessment: patient sleeping. no distress noted. Patient denies pain at this time. mg2 Vital Signs: 06/23 21:28 Pulse Ox 82% on R/A; sg 21:29 BP 174 / 92; Pulse 102; Resp 22; Temp 97.7; Pulse Ox 100% on 4 lpm NC; sg 22:39 BP 158 / 105; Pulse 96; Resp 18; Pulse Ox 100% on 4 lpm NC; mg2 23:43 BP 163 / 90; Pulse 82; Resp 18; Pulse Ox 100% on 4 lpm NC; mg2 06/24 02:07 BP 163 / 108; Pulse 86; Resp 18; Pulse Ox 96% on 4 lpm NC; mg2 04:26 BP 138 / 83; Pulse 82; Resp 18; Temp 97; Pulse Ox 95% on 2 lpm NC; mg2 06/23 21:28 pt placed to o2 via NC ED Course: 21:18 Patient arrived in ED. am2 21:28 Arm band placed on. 21:30 Deangelo Thomas PA is [facility]. [facility] 21:30 Evangelista Bowen MD is Attending Physician. [facility] 21:34 Triage completed. sg 21:53 Farooq Wong, RN is Primary Nurse. mg2 22:15 Inserted saline lock: 22 gauge in right forearm, using aseptic technique. Blood mg2 collected. 22:19 XRAY Chest (1 view) In Process Unspecified. EDMS 22:23 Patient has correct armband on for positive identification. Door closed. Warm blanket mg2 given. 22:23 No provider procedures requiring assistance completed. mg2 23:33 Inserted saline lock: 22 gauge in right forearm, using aseptic technique. vc 06/24 02:27 Evangelista Bowen MD is Attending Physician. sg 02:29 Francisco Blackburn is Hospitalizing Provider. 7 02:51 Patient admitted, IV remains in place. mg2 02:51 covid swab sent to lab. mg2 Administered Medications: 06/23 23:38 Drug: SOLU-Medrol 125 mg Route: IVP; Site: right forearm; mg2 06/24 02:07 Follow up: Response: No adverse reaction mg2 06/23 23:38 Drug: Pepcid 20 mg Route: IVP; Site: right forearm; mg2 06/24 02:07 Follow up: Response: No adverse reaction mg2 06/23 23:38 Drug: diphenhydrAMINE 50 mg Route: IVP; Site: right forearm; mg2 06/24 02:07 Follow up: Response: No adverse reaction mg2 00:51 Drug: Lasix 40 mg Route: IVP; Site: right forearm; mg2 02:07 Follow up: Response: No adverse reaction mg2 Outcome: 02:30 Decision to Hospitalize by Provider. mh7 04:54 Admitted to Med/surg accompanied by nurse, via wheelchair, room 211, with oxygen, with mg2 chart, Report called to HERNESTO Petersen 04:54 Condition: stable 04:54 Instructed on the need for admit, Demonstrated understanding of instructions. 04:58 Patient left the ED. mg2 Addendum: 06/27/2020 13:16 Addendum: COVID-19 Result: Negative result given to RN to notify pt. Attempted to i w contact pt regarding negative COVID-19 swab results. Signatures: Dispatcher [employer] EDMS Maynor Disla RN RN sg Deangelo Thomas PA PA jmm Williams, Irene RN HERNESTO Dulce Quintero Michele, RN RN mg2 Emperatriz Barnett RN RN vc Holmes, Maurice, MD MD 7 Corrections: (The following items were deleted from the chart) 06/24 02:08 02:07 BP 163 / 108; Pulse 86bpm; Resp 18bpm; Pulse Ox 96% RA; mg2 mg2 02:35 06/23 21:29 Coronavirus screen: Client denies travel out of the [place] in the last 14 sg days. difficulty breathing, shortness of breath, sg 06/24 04:27 04:26 BP 138 / 83; Pulse 82bpm; Resp 18bpm; Pulse Ox 95% 4 lpm Nasal Cannula; mg2 mg2 04:29 04:26 BP 138 / 83; Pulse 82bpm; Resp 18bpm; Pulse Ox 95% 4 lpm Nasal Cannula; Temp 97F; mg2 mg2
--- NOTE | 2020-06-24 03:27 | P.HP ---
Certification for Inpatient Patient admitted to: Observation With expected LOS: <2 Midnights Patient will require the following post-hospital care: None Practitioner: I am a practitioner with admitting privileges, knowledge of patient current condition, hospital course, and medical plan of care. Services: Services provided to patient in accordance with Admission requirements found in Title 42 Section 412.3 of the Code of Federal Regulations <Viral Condon - Last Filed: 06/24/20 03:22> Patient History Date of Service: 06/24/20 Primary Care Provider: Dr Hardy in [place] Reason for admission: Diastolic heart failure exacerbation/acute respiratory failure History of Present Illness: 45-year-old morbidly obese female with a past medical history of diastolic congestive heart failure, diabetes mellitus, hypertension presents to the emergency room complaining of worsening difficulty breathing. Patient states that over the past 2 weeks she has noticed more difficulty breathing. She is having to sit in a recliner to sleep that night. States that she feels swelling in her lower extremities. Patient also states that she ran out of her hydrochlorothiazide approximately 2 weeks ago and that her CPAP which she is supposed to use at night broke approximately 2 months ago. In the emergency room patient is noted to be hypoxic on arrival to ED with O2 saturations of 82%. She is currently on 4 L nasal cannula saturations of 100%. Patient is alert and oriented x4. She is in no distress. Pleasant and cooperative. Emergency room lab work shows a blood glucose of 143, proBNP of 49, an ABG with a pH of 7.3, CO2 of 76.2, O2 of 51 and a bicarb of 40 indicating partially compensated respiratory acidosis. Patient will be placed in observation and further evaluated. Home medications list reviewed: Yes - Past Medical/Surgical History Diabetic: No -: Htn -: Diastolic congestive heart fat -: morbid obesity -: Type 2 diabetes mellitus -: None Psychosocial/ Personal History: Lives at home with her children. - Family History Father -: Heart disease, Hypertension - Social History Smoking Status: Never smoker Alcohol use: No CD- Drugs: No Caffeine use: No Place of Residence: Home <Viral Condon - Last Filed: 06/24/20 03:22> Date of Service: 06/24/20 <Sunil Mathew - Last Filed: 06/30/20 16:24> Allergies iodine Allergy (Verified 01/02/19 22:33) Hives/Rash Home Medications: Metformin HCl 500 mg PO BID #60 tablet 01/07/19 Carbamazepine [Tegretol] 1 tab PO BID 06/24/20 Loratadine [Claritin*] 1 tab PO DAILY 06/24/20 hydroCHLOROthiazide [Hydrochlorothiazide] 1 tab PO DAILY 06/24/20 Albuterol Neb [Proventil 0.083% Neb Soln] 2.5 mg NEB Q6HP PRN #60 amp 06/26/20 Furosemide [Lasix] 40 mg PO DAILY #30 tab 06/26/20 Ipratropium Neb [Atrovent*] 0.5 mg NEB Q6HP PRN #60 amp 06/26/20 Potassium Chloride [K-Dur] 10 meq PO DAILY #30 tab.er.prt 06/26/20 acetaZOLAMIDE [Acetazolamide] 125 mg PO DAILY #30 tablet 06/26/20 predniSONE [Prednisone*] 20 mg PO DAILY #5 tab 06/26/20 Review of Systems General: As per HPI Eyes: Unremarkable ENT: Unremarkable Respiratory: Shortness of Breath, SOB with Excertion Cardiovascular: Unremarkable Gastrointestinal: Unremarkable Genitourinary: Unremarkable Musculoskeletal: Unremarkable Integumentary: Unremarkable Neurological: Unremarkable Lymphatics: Unremarkable <Viral Condon - Last Filed: 06/24/20 03:22> Physical Examination - Vital Signs Temperature: 97.7 F Blood Pressure: 174/92 Pulse: 102 Respirations: 22 Pulse Ox (%): 82 (RA) - Physical Exam General: Alert, In no apparent distress, Oriented x3 HEENT: Atraumatic, Normocephalic, PERRLA, Mucous membr. moist/pink Neck: Supple, No Thyromegaly, Other (Trachea midline) Respiratory: Clear to auscultation bilaterally, Diminished Cardiovascular: Normal pulses, Edema (Bilateral lower extremity) Capillary refill: <2 Seconds Gastrointestinal: Normal bowel sounds, Soft and benign, Non-distended Musculoskeletal: No clubbing, No contractures, No erythema, Swelling (Bilateral lower extremity) Integumentary: No rashes, No breakdown, No significant lesion, No tenderness/swelling Neurological: Normal gait, Normal speech, Normal strength at 5/5 x4 extr, Normal tone - Studies Laboratory Data (last 24 hrs) 06/23/20 22:05: PT 12.4, INR 1.05 06/23/20 22:05: WBC 7.6, Hgb 15.5 H, Hct 49.9 H, Plt Count 164 06/23/20 22:05: Sodium 143, Potassium 4.0, BUN 10, Creatinine 0.68, Glucose 143 H, Magnesium 2.1, Total Bilirubin 0.5, AST 13 L, ALT 18, Alkaline Phosphatase 110 <Viral Condon - Last Filed: 06/24/20 03:22> Assessment and Plan - Plan Impression: Diastolic congestive heart failure with acute exacerbation: Partially compensated respiratory acidosis secondary to acute respiratory failure with hypoxia: Type 2 diabetes mellitus: Essential hypertension: Morbid obesity: Plan: Diastolic congestive heart failure with acute exacerbation: Echo from December of 2018 shows a normal ejection fraction, left ventricular hypertrophy and mild pulmonary hypertension consistent with diastolic heart failure. Will start patient on IV Lasix. Continue O2 support. Continuous telemetry. Monitor. Partially compensated respiratory acidosis secondary to acute respiratory failu re with hypoxia: Continue O2 support. Patient is requiring 4 L nasal cannula to maintain oxygen saturations at 100%. On arrival to ED she was 82% on room air. Will continue to wean off O2. Patient does not use oxygen at home. Patient is supposed to be using a CPAP at night but the machine broke approximately 2 months ago. She sleeps in a recliner. Would likely benefit from a sleep study as an outpatient in hopes of qualifying for a new CPAP machine. Type 2 diabetes mellitus: Will resume all medications. Patient takes metformin 500 mg b.i.d.. Continued Accu-Cheks a.c. HS. Will start mild sliding scale insulin. Essential hypertension: Will resume all medications once verified. Monitor blood pressure. Morbid obesity: Counseled greater than 20 min. Verbalize understanding. Discharge Plan: Home Plan to discharge in: 48 Hours - Advance Directives Does patient have a Living Will: No Does patient have a Durable POA for Healthcare: No - Code Status/Comfort Care Code Status Assessed: Yes Time Spent Managing Pts Care (In Minutes): 55 <Viral Condon - Last Filed: 06/24/20 03:22> - Problems (Diagnosis) (1) Obesity hypoventilation syndrome Status: Acute (2) Hypoxemia Status: Acute (3) Obesity, morbid, BMI 50 or higher Status: Acute (4) Acute and chronic respiratory failure ([id number]) Status: Acute Qualifiers: Respiratory failure complication: hypoxia and hypercapnia Qualified Code(s): J96.21 - Acute and chronic respiratory failure with hypoxia; J96.22 - Acute and chronic respiratory failure with hypercapnia (5) COPD (chronic obstructive pulmonary disease) Status: Acute Qualifiers: COPD type: unspecified COPD Qualified Code(s): J44.9 - Chronic obstructive pulmonary disease, unspecified (6) Diabetes mellitus Onset Date: 01/04/19 Status: Acute Qualifiers: Diabetes mellitus type: type 2 Diabetes mellitus refresh technician insulin use: without group home use Diabetes mellitus complication status: with hyperglycemia Qualified Code(s): E11.65 - Type 2 diabetes mellitus with hyperglycemia (7) Respiratory acidosis Status: Acute (8) HTN (hypertension) Status: Chronic Qualifiers: Hypertension type: essential hypertension Qualified Code(s): I10 - Essential (primary) hypertension <Sunil Mathew - Last Filed: 06/30/20 16:24> Date of Service: 06/24/20 Chart reviewed. Spoke with PA regardng admission; agree with the above findings. Subjective Date of Service: 06/25/20 PATIENT IS CLINICALLY DOING WELL WITH NO NEW COMPLAINTS. STILL LITTLE SHORT OF BREATH ON AMBULATION. ARRANGE FOR HOME OXYGEN AND THEN POSSIBLY DISCHARGE HOME IF RESPIRATORY STATUS IMPROVED. Review of Systems 10-point ROS is otherwise unremarkable Physical Examination - Vital Signs REVIEWED - Physical Exam General: Alert, In no apparent distress, Oriented x3, Obese Neck: JVD not distended Respiratory: Diminished, Crackles/rales Cardiovascular: Regular rate/rhythm, Normal S1 S2, Systolic murmur Gastrointestinal: Normal bowel sounds, Soft and benign, Non-distended, No tenderness Musculoskeletal: No clubbing, No tenderness, Swelling Integumentary: No rashes Neurological: Normal strength at 5/5 x4 extr, Normal tone, Sensation intact, Cranial nerves 3-12 intact Assessment & Plan - Problems (Diagnosis) (1) Obesity hypoventilation syndrome Current Visit: Yes Status: Acute (2) Hypoxemia Current Visit: Yes Status: Acute (3) Obesity, morbid, BMI 50 or higher Current Visit: Yes Status: Acute (4) Acute and chronic respiratory failure ([id number]) Current Visit: No Status: Acute Qualifiers: Respiratory failure complication: hypoxia and hypercapnia Qualified Code(s): J96.21 - Acute and chronic respiratory failure with hypoxia; J96.22 - Acute and chronic respiratory failure with hypercapnia (5) COPD (chronic obstructive pulmonary disease) Current Visit: No Status: Acute Qualifiers: COPD type: unspecified COPD Qualified Code(s): J44.9 - Chronic obstructive pulmonary disease, unspecified (6) Diabetes mellitus Onset Date: 01/04/19 Current Visit: No Status: Acute Qualifiers: Diabetes mellitus type: type 2 Diabetes mellitus group home insulin use: without group home use Diabetes mellitus complication status: with hyperglycemia Qualified Code(s): E11.65 - Type 2 diabetes mellitus with hyperglycemia (7) Respiratory acidosis Current Visit: No Status: Acute (8) HTN (hypertension) Current Visit: No Status: Chronic Qualifiers: Hypertension type: essential hypertension Qualified Code(s): I10 - Essential (primary) hypertension - Plan Plan: 1. Continue with albuterol and Atrovent nebs 2. Continue with IV steroids 3. Will wean off BiPAP 4. Outpatient Pulmonary follow-up 5. Room air O2 sats-we will arrange for home oxygen 6. Repeat chest x-ray in the morning 7. GI and DVT prophylaxis <Sunil Mathew - Last Filed: 06/30/20 16:24>
[2020-06-24 05:54] VITALS: BMI 54.4
[2020-06-24] MEDS ORDERED: METFORMIN HCL 500 MG TAB PO SCH (08:00)
--- NOTE | 2020-06-24 08:14 | RAD REPORT ---
EXAM DESCRIPTION: RAD - Chest Single View - 06/23/2020 10:18 pm CLINICAL HISTORY: shortness of breath Chest pain. COMPARISON: Chest Single View dated 01/05/2019; Chest Single View dated 01/04/2019; Chest Single View dated 01/03/2019; Chest Single View dated 01/02/2019 FINDINGS: Portable technique limits examination quality. Mild interstitial pulmonary edema. The heart is moderately enlarged. No displaced fractures. IMPRESSION: Mild CHF.
[2020-06-24] MEDS: FUROSEMIDE 40 MG/4 ML VIAL IV SCH ×2 (08:42→16:41)
[2020-06-24] MEDS: INSULIN -REGULAR HUMAN 50 UNIT/0.5 ML ML SQ SCH ×4 (08:43→20:29)
[2020-06-24] MEDS: METFORMIN HCL 500 MG TAB PO SCH ×2 (08:43→16:40)
[2020-06-24] MEDS: ENOXAPARIN 40 MG/0.4 ML SQ SCH (08:43)
[2020-06-24 09:35] LABS: Urine Appearance CLEAR; Urine Bilirubin NEGATIVE (NEG); Urine Blood NEGATIVE (NEG); Urine Color YELLOW; Urine Glucose NEGATIVE (NEG); Urine Protein NEGATIVE (NEG); Urine Urobilinogen 0.2 mg/dL (0.2-1.0)
[2020-06-24 09:37] LABS: Urine Microscopic Reflex NO UMIC
--- NOTE | 2020-06-24 11:20 | EKG ---
Test Date: 2020-06-23 Test Time: 21:58:01 Cutter And Edge Trimmer: MEASUREMENT RESULTS: Intervals: Rate: 92 PA: 156 QRSD: 92 QT: 338 QTc: 417 [place]: P: 81 PA: 156 QRS: 132 T: 60 INTERPRETIVE STATEMENTS: Normal sinus rhythm Incomplete right bundle branch block Possible Right ventricular hypertrophy Abnormal ECG Compared to ECG 06/23/2020 21:57:05 Incomplete right bundle-branch block now present Right-axis deviation no longer present Electronically Signed On 06-24-20 11:20:09 CDT by Buddy Lynn
--- NOTE | 2020-06-24 11:21 | EKG ---
Test Date: 2020-06-23 Test Time: 21:57:05 Forestry Adviser: MEASUREMENT RESULTS: Intervals: Rate: 99 DC: 166 QRSD: 76 QT: 320 QTc: 410 [place]: P: 72 DC: 166 QRS: 127 T: 66 INTERPRETIVE STATEMENTS: Poor data quality, interpretation may be adversely affected Normal sinus rhythm Right axis deviation Possible Right ventricular hypertrophy Abnormal ECG No previous ECG available for comparison Electronically Signed On 06-24-20 11:20:10 CDT by Buddy Lynn
[2020-06-25] MEDS: FUROSEMIDE 40 MG/4 ML VIAL IV SCH ×2 (01:42→08:27)
[2020-06-25 05:53] LABS: Absolute Lymphocytes (CBC) 1.4 K/uL (0.7-4.9); Basophils % 0.5 % (0-1.3); Hematocrit 50.5 % (36.0-45.0); Lymphocytes % 19.6 % (15.3-44.8); MPV 9.3 fL (7.6-11.3); RBC Red Blood Cell Count 5.79 M/uL (3.86-4.86)
[2020-06-25 06:01] LABS: BUN Blood Urea Nitrogen 15 mg/dL (7-18); Glucose Level 110 mg/dL (74-106); Potassium 3.4 mmol/L (3.5-5.1); Sodium Level 139 mmol/L (136-145)
[2020-06-25 06:03] LABS: Bicarbonate 44 mmol/L (21-32)
[2020-06-25] MEDS: INSULIN -REGULAR HUMAN 50 UNIT/0.5 ML ML SQ SCH ×4 (07:30→21:35)
[2020-06-25] MEDS: ENOXAPARIN 40 MG/0.4 ML SQ SCH (08:27)
[2020-06-25] MEDS: METFORMIN HCL 500 MG TAB PO SCH ×2 (08:28→21:33)
[2020-06-25 08:53] LABS: Anisocytosis 1+; Blood Morphology Comment NOTED (NOT SEEN); Platelet Estimate ADEQ; White Blood Cell Scan OK (OK)
[2020-06-25] MEDS ORDERED: POTASSIUM CL SA 10 MEQ TAB PO ONE (09:00)
[2020-06-25] MEDS ORDERED: acetaZOLAMIDE 250 MG TAB PO ONE (14:36)
[2020-06-25] MEDS ORDERED: METHYLPREDNISOLONE 125 MG INJ IV ONE (14:38)
[2020-06-25] MEDS ORDERED: POTASSIUM 25 MEQ EFFERV TAB PO ONE (18:55)
[2020-06-25] MEDS ORDERED: POTASSIUM 25 MEQ EFFERV TAB ONE (19:11)
[2020-06-25] MEDS: carBAMazepine 200 MG TAB PO SCH (21:33)
[2020-06-26 06:13] LABS: BUN Blood Urea Nitrogen 21 mg/dL (7-18); Bicarbonate 34 mmol/L (21-32); Glucose Level 108 mg/dL (74-106); Potassium 4.2 mmol/L (3.5-5.1); Sodium Level 138 mmol/L (136-145)
[2020-06-26] MEDS: INSULIN -REGULAR HUMAN 50 UNIT/0.5 ML ML SQ SCH ×2 (07:30→11:30)
[2020-06-26] MEDS: METFORMIN HCL 500 MG TAB PO SCH (08:03)
[2020-06-26] MEDS: carBAMazepine 200 MG TAB PO SCH (08:03)
[2020-06-26] MEDS: ENOXAPARIN 40 MG/0.4 ML SQ SCH (08:04)
[2020-06-26] MEDS ORDERED: hydroCHLOROthiazide 12.5 MG CAP PO SCH (09:00)
[2020-06-26] MEDS ORDERED: FUROSEMIDE 20 MG/ 2ML VIAL IV SCH (09:00)
[2020-06-26] MEDS ORDERED: LORATADINE 10 MG TAB PO SCH (09:00)
[2020-06-26] MEDS ORDERED: acetaZOLAMIDE 250 MG TAB PO SCH ×2 (09:00)
[2020-06-26 09:20] VITALS: O2SAT 93
--- NOTE | 2020-06-26 11:34 | P.PN ---
Subjective Date of Service: 06/25/20 PATIENT IS CLINICALLY DOING WELL WITH NO NEW COMPLAINTS. STILL LITTLE SHORT OF BREATH ON AMBULATION. ARRANGE FOR HOME OXYGEN AND THEN POSSIBLY DISCHARGE HOME IF RESPIRATORY STATUS IMPROVED. Review of Systems 10-point ROS is otherwise unremarkable Physical Examination - Vital Signs Temperature: 97.9 F Blood Pressure: 122/66 Pulse: 90 Respirations: 18 Pulse Ox (%): 93 - Physical Exam General: Alert, In no apparent distress, Oriented x3, Obese Neck: JVD not distended Respiratory: Diminished, Crackles/rales Cardiovascular: Regular rate/rhythm, Normal S1 S2, Systolic murmur Gastrointestinal: Normal bowel sounds, Soft and benign, Non-distended, No tenderness Musculoskeletal: No clubbing, No tenderness, Swelling Integumentary: No rashes Neurological: Normal strength at 5/5 x4 extr, Normal tone, Sensation intact, Cranial nerves 3-12 intact - Studies Medications List Reviewed: Yes Assessment & Plan - Problems (Diagnosis) (1) Obesity hypoventilation syndrome Current Visit: Yes Status: Acute (2) Hypoxemia Current Visit: Yes Status: Acute (3) Obesity, morbid, BMI 50 or higher Current Visit: Yes Status: Acute (4) Acute and chronic respiratory failure ([id number]) Current Visit: No Status: Acute Qualifiers: Respiratory failure complication: hypoxia and hypercapnia Qualified Code(s): J96.21 - Acute and chronic respiratory failure with hypoxia; J96.22 - Acute and chronic respiratory failure with hypercapnia (5) COPD (chronic obstructive pulmonary disease) Current Visit: No Status: Acute Qualifiers: COPD type: unspecified COPD Qualified Code(s): J44.9 - Chronic obstructive pulmonary disease, unspecified (6) Diabetes mellitus Onset Date: 01/04/19 Current Visit: No Status: Acute Qualifiers: Diabetes mellitus type: type 2 Diabetes 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 Continue with albuterol and Atrovent nebs 2. Continue with IV steroids 3. Will wean off BiPAP 4. Outpatient Pulmonary follow-up 5. Room air O2 sats-we will arrange for home oxygen 6. Repeat chest x-ray in the morning 7. GI and DVT prophylaxis Discharge Plan: Home Plan to discharge in: Greater than 2 days - Advance Directives Does patient have a Living Will: No Does patient have a Durable POA for Healthcare: No - Code Status/Comfort Care Code Status Assessed: Yes Code Status: Full Code Critical Care: No Time Spent Managing PTS Care (In Minutes): 35
[2020-06-26 14:00] VITALS: BP 114/55; TEMP 97.2
--- NOTE | 2020-06-30 16:31 | P.DS ---
Discharge Date: 06/26/20 Primary Care Provider: Dr Hardy in [place] Disposition: ROUTINE DISCHARGE Discharge Condition: GOOD Reason for Admission: Diastolic heart failure exacerbation/acute respiratory failure - Problems (1) Obesity hypoventilation syndrome Status: Acute (2) Hypoxemia Status: Acute (3) Obesity, morbid, BMI 50 or higher Status: Acute (4) Acute and chronic respiratory failure ([id number]) Status: Acute Qualifiers: Respiratory failure complication: hypoxia and hypercapnia Qualified Code(s): J96.21 - Acute and chronic respiratory failure with hypoxia; J96.22 - Acute and chronic respiratory failure with hypercapnia (5) COPD (chronic obstructive pulmonary disease) Status: Acute Qualifiers: COPD type: unspecified COPD Qualified Code(s): J44.9 - Chronic obstructive pulmonary disease, unspecified (6) Diabetes mellitus Onset Date: 01/04/19 Status: Acute Qualifiers: Diabetes mellitus type: type 2 Diabetes mellitus fpc insulin use: without fpc use Diabetes mellitus complication status: with hyperglycemia Qualified Code(s): E11.65 - Type 2 diabetes mellitus with hyperglycemia (7) Respiratory acidosis Status: Acute (8) HTN (hypertension) Status: Chronic Qualifiers: Hypertension type: essential hypertension Qualified Code(s): I10 - Essential (primary) hypertension Brief History of Present Illness: Pt is a 45-year-old morbidly obese female with a past medical history of diastolic congestive heart failure, diabetes mellitus, hypertension presents to the emergency room complaining of worsening difficulty breathing. Patient states that over the past 2 weeks she has noticed more difficulty breathing. She is having to sit in a recliner to sleep that night. States that she feels swelling in her lower extremities. Patient also states that she ran out of her hydrochlorothiazide approximately 2 weeks ago and that her CPAP which she is supposed to use at night broke approximately 2 months ago. In the emergency room patient is noted to be hypoxic on arrival to ED with O2 saturations of 82%. She is currently on 4 L nasal cannula saturations of 100%. Patient is alert and oriented x4. She is in no distress. Pleasant and cooperative. Emergency room lab work shows a blood glucose of 143, proBNP of 49, an ABG with a pH of 7.3, CO2 of 76.2, O2 of 51 and a bicarb of 40 indicating partially compensated respiratory acidosis. Patient will be placed in observation and further evaluated. Hospital Course: Patient is feeling much better. Her respiratory status has improved. At this time, she is stable for discharge home with outpatient follow up. She will need to continue monitoring her respiratory status closely. She is to return to the emergency room if her shortness of breath worsens. Vital Signs/Physical Exam: Temp Pulse Resp BP Pulse Ox 97.2 F 90 19 114/55 L 95 06/26/20 12:00 06/26/20 12:00 06/26/20 12:00 06/26/20 12:00 06/26/20 12:00 General: Alert, In no apparent distress, Oriented x3 Laboratory Data at Discharge: WBC 7.3 K/uL (4.3-10.9) 06/25/20 05:21 Hgb 15.6 g/dL (12.0-15.0) H 06/25/20 05:21 Hct 50.5 % (36.0-45.0) H 06/25/20 05:21 Plt Count 191 K/uL (152-406) 06/25/20 05:21 PT 12.4 SECONDS (9.5-12.5) 06/23/20 22:05 INR 1.05 06/23/20 22:05 Sodium 138 mmol/L (136-145) 06/26/20 05:02 Potassium 4.2 mmol/L (3.5-5.1) 06/26/20 05:02 BUN 21 mg/dL (7-18) H 06/26/20 05:02 Creatinine 0.70 mg/dL (0.55-1.3) 06/26/20 05:02 Glucose 108 mg/dL (74-106) H 06/26/20 05:02 Magnesium 2.0 mg/dL (1.8-2.4) 06/25/20 05:21 Total Bilirubin 0.5 mg/dL (0.2-1.0) 06/23/20 22:05 AST 13 U/L (15-37) L 06/23/20 22:05 ALT 18 U/L (12-78) 06/23/20 22:05 Alkaline Phosphatase 110 U/L (45-117) 06/23/20 22:05 Home Medications: Metformin HCl 500 mg PO BID #60 tablet 01/07/19 Carbamazepine [Tegretol] 1 tab PO BID 06/24/20 Loratadine [Claritin*] 1 tab PO DAILY 06/24/20 hydroCHLOROthiazide [Hydrochlorothiazide] 1 tab PO DAILY 06/24/20 Albuterol Neb [Proventil 0.083% Neb Soln] 2.5 mg NEB Q6HP PRN #60 amp 06/26/20 Furosemide [Lasix] 40 mg PO DAILY #30 tab 06/26/20 Ipratropium Neb [Atrovent*] 0.5 mg NEB Q6HP PRN #60 amp 06/26/20 Potassium Chloride [K-Dur] 10 meq PO DAILY #30 tab.er.prt 06/26/20 acetaZOLAMIDE [Acetazolamide] 125 mg PO DAILY #30 tablet 06/26/20 predniSONE [Prednisone*] 20 mg PO DAILY #5 tab 06/26/20 New Medications: acetaZOLAMIDE [Acetazolamide] 125 mg PO DAILY #30 tablet Ipratropium Neb [Atrovent*] 0.5 mg NEB Q6HP PRN #60 amp PRN Reason: DYSPNEA Potassium Chloride [K-Dur] 10 meq PO DAILY #30 tab.er.prt Furosemide [Lasix] 40 mg PO DAILY #30 tab predniSONE [Prednisone*] 20 mg PO DAILY #5 tab Albuterol Neb [Proventil 0.083% Neb Soln] 2.5 mg NEB Q6HP PRN #60 amp PRN Reason: DYSPNEA Patient Discharge Instructions: OK TO DC IV AND DC HOME. FOLLOW-UP WITH PRIMARY CARE PROVIDER IN 1-2 WEEKS. FOLLOW-UP WITH PULMONARY IN 1-2 WEEKS. RETURN TO THE ER IF symptoms worsen. CALL or TEXT DR. CASTANO AT [phone] IF ANY QUESTIONS REGARDING HOSPITAL STAY. PLEASE CALL THE FLOOR AT [phone] IF ANY MEDICATION OR NURSING QUESTIONS. Diet: LOW-CARBOHYDRATE DIET Activity: Fall precautions Followup: Sean Thomas MD [ACTIVE - CAN ADMIT] - Time spent managing pt's care (in minutes): 35
== END 2020-06-26 15:51 | disposition home or self-care (01) | DRG 291 ==
LOC: ER 21:14 → 2ND 06-24 04:55 → OBSVTOIN 06-24 07:54
PROVIDERS: ADMIT Hospitalist; ATTEND Hospitalist
PROC: 5A09457 Assistance with Respiratory Ventilation, 24-96 Consecutive Hours, Continuous Positive Airway Pressure (ICD-10-PCS; principal; 2020-06-24)
DX: I11.0 Hypertensive heart disease with heart failure (principal); J96.21 Acute and chronic respiratory failure with hypoxia; J96.22 Acute and chronic respiratory failure with hypercapnia; E87.2 Acidosis; Z68.43 Body mass index [BMI] 50.0-59.9, adult; E66.2 Morbid (severe) obesity with alveolar hypoventilation; I50.33 Acute on chronic diastolic (congestive) heart failure; E11.65 Type 2 diabetes mellitus with hyperglycemia; J44.9 Chronic obstructive pulmonary disease, unspecified; Z79.84 Long term (current) use of oral hypoglycemic drugs; Z88.8 Allergy status to other drugs, medicaments and biological substances; Z91.19 Patient's noncompliance with other medical treatment and regimen; Z79.899 Other long term (current) drug therapy; Z20.828 Contact with and (suspected) exposure to other viral communicable diseases
CPT/HCPCS: 36415; 71045; 80048; 80076; 81003; 82805; 82947; 83036; 83735; 83880; 84132; 84484; 85025; 85610; 93005; 94660; 94760; 96374; 96375; 99285; G0378; J1200; J1650; J1940; J2930; U0002